=== PATIENT | female | born 1960 | race Caucasian/White ===

== ENCOUNTER 2020-09-20 13:20 | Outpatient (REF) | payer OTHER, SELFPAY | END 2020-09-20 13:21 | disposition home or self-care (01) | LOC: HO.LAB 13:20 | PROVIDERS: Visit Provider Internal Medicine | DX: Z20.828 Contact with and (suspected) exposure to other viral communicable diseases (principal) | CPT/HCPCS: C9803; U0003 ==

== ENCOUNTER → 2020-11-03 08:16 | Outpatient (BNVA) | payer OTHER, SELFPAY | PROVIDERS: PCP Internal Medicine; Visit Provider Dietitian, Registered ==

== ENCOUNTER 2020-11-22 08:55 | Outpatient (REF) | payer OTHER, SELFPAY ==
[2020-11-22 09:39] LABS: MANUAL DIFF FLAG NO
[2020-11-22 09:42] LABS: Basophils Percent Auto 0.2 % (0-2); Eosinophils Percent Auto 0.7 % (0-4); Hematocrit 40.7 % (37-47); Hemoglobin 13.6 g/dl (12.0-16.0); Imm Gran Abs Auto 0.02 X10*3/uL (0.00-0.03); Imm Gran Pct Auto 0.5 % (0.0-0.4); Lymphocytes Absolute Auto 1.2 X10*3/uL (1.2-4.9); Lymphocytes Percent Auto 27.5 % (20-40); Mean Corpuscular HGB Conc 33.4 g/dl (31.0-35.0); Mean Corpuscular Hemoglobin 29.2 pg (27.0-33.0); Mean Corpuscular Volume 87.5 fL (80-98); Mean Platelet Volume 8.9 fL (9.4-12.3); Monocytes Absolute Auto 0.3 X10*3/uL (0.1-1.2); Monocytes Percent Auto 7.7 % (2-11); Neutrophils Absolute Auto 2.8 X10*3/uL (2.0-8.3); Neutrophils Percent Auto 63.4 % (45-73); Platelet Count 216 X10*3/uL (160-400); Red Blood Count 4.65 X10*6/uL (4.20-5.50); White Blood Count 4.4 X10*3/uL (4.8-10.8)
[2020-11-22 10:05] LABS: Estimated Average Glucose 97 mg/dL
[2020-11-22 10:26] LABS: Alanine Aminotransferase 17 U/L (0-31); Albumin Level 4.1 g/dL (3.5-5.0); Alkaline Phosphatase 81 U/L (39-117); Anion Gap 11 (12-20); Aspartate Amino Transferase 20 U/L (5-31); Bilirubin Total 0.8 mg/dL (0.0-1.0); Blood Urea Nitrogen 18 mg/dL (9-16); C Reactive Protein 0.12 mg/dL (< or = 0.50); Calcium 9.2 mg/dL (8.4-10.2); Carbon Dioxide 29 mmol/L (22-29); Chloride 108 mmol/L (96-108); Cholesterol 215 mg/dL; Estimated Glomerular Filt Rate > 60; Glucose Random 85 mg/dL (60-115); HDL Cholesterol 69 mg/dL; LDL Cholesterol Calculated 127 mg/dl; Potassium 4.5 mmol/L (3.3-5.1); Sodium 143 mmol/L (135-145); Total Protein 6.5 g/dL (6.5-8.0); Triglycerides 98 mg/dL
[2020-11-22 10:47] LABS: Ferritin 144 ng/mL (10-250); TSH reflex Free T4 1.62 uIU/mL (0.32-4.0); Vitamin D 25-OH Total 73.4 ng/mL (>30)
[2020-11-22 10:52] LABS: Folate 17.5 ng/mL (> or = 4.0); Vitamin B12 1055 pg/mL (200-900)
[2020-11-24 02:16] LABS: Insulin Level Total 9.9 uIU/mL
[2020-11-24 10:36] LABS: Calcium (PTHI) 9.5 mg/dL (8.6-10.4); PTHI 28 pg/mL (14-64)
[2020-11-25 01:47] LABS: Zinc 96 mcg/dL (60-130)
[2020-11-26 11:57] LABS: Vitamin B1 19 nmol/L (8-30)
[2020-11-26 23:51] LABS: Vitamin A 51 mcg/dL (38-98)
== END 2020-11-22 08:56 | disposition home or self-care (01) ==
LOC: HO.LAB 08:55
PROVIDERS: PCP Internal Medicine; Visit Provider Physician Assistant
DX: Z98.84 Bariatric surgery status (principal)
CPT/HCPCS: 36415; 80053; 80061; 82306; 82607; 82728; 82746; 83036; 83525; 83970; 84425; 84443; 84590; 84630; 85025; 86140

== ENCOUNTER → 2020-11-29 08:07 | Outpatient (BNVA) | payer OTHER, SELFPAY | PROVIDERS: PCP Internal Medicine; Visit Provider Dietitian, Registered ==

== ENCOUNTER → 2022-12-25 16:10 | Outpatient (BNVA) | payer OTHER, SELFPAY | PROVIDERS: PCP Family Medicine; Visit Provider Physician Assistant Surgical | DX: Z13.89 Encounter for screening for other disorder (principal) ==

== ENCOUNTER 2023-01-02 15:13 | Outpatient (REF) | payer OTHER, SELFPAY ==
[2023-01-02 17:38] LABS: Blood Urea Nitrogen 20 mg/dL (9-16); Estimated Glomerular Filt Rate > 60
== END 2023-01-02 15:14 | disposition home or self-care (01) ==
LOC: HO.LAB 15:13
PROVIDERS: PCP Family Medicine; Visit Provider Physician Assistant
DX: Z01.812 Encounter for preprocedural laboratory examination (principal); K43.9 Ventral hernia without obstruction or gangrene
CPT/HCPCS: 36415; 82565; 84520

== ENCOUNTER 2023-01-05 08:50 | Outpatient (REF) | payer OTHER, SELFPAY ==
--- NOTE | ~2023-01-05 | CT_ITS ---
EXAMINATION: CT ABDOMEN AND PELVIS WITH CONTRAST CLINICAL INFORMATION: Ventral hernia COMPARISON: Previous abdominal ultrasound June 2019 TECHNIQUE: Multidetector volumetric images were obtained from the superior aspect of the liver through the pubic symphysis following administration 85 mL of Omnipaque 350 intravenous contrast. Sagittal and coronal reformatted images were obtained on the technologist's workstation. Oral contrast: Yes This CT examination was performed using dose optimization techniques as appropriate, variously including the following: *Automated exposure control *Adjustment of mA and/or kV according to patient size (this includes techniques or standardized protocols for targeted exams where dose is matched to indication/reason for exam; i.e. extremities or head) *Use of iterative reconstruction technique DLP: 514 mGy-cm FINDINGS: LUNG BASES: The visualized lung bases are unremarkable. LIVER, GALLBLADDER, AND BILIARY TREE: Fatty liver. The gallbladder has been removed. PANCREAS: Unremarkable. SPLEEN: Unremarkable. ADRENAL GLANDS: Unremarkable. KIDNEYS AND URETERS: The kidneys are normal in size, shape, and attenuation. No hydronephrosis, hydroureter, or calculi seen. No perinephric stranding. Small bilateral renal cysts. No imaging follow-up recommended. BLADDER: Unremarkable. GASTROINTESTINAL TRACT: Mild diverticulosis of the colon. The small and large bowel are unremarkable. The appendix is unremarkable. Postoperative changes from gastric procedure. A small esophageal hernia. ABDOMINAL WALL: Upper midline ventral hernia containing fat 5.5 cm above the umbilicus. This has a 3 cm centimeter neck and measures 7 x 4 x 7 cm. There is a small umbilical hernia containing fat. Small umbilical hernia containing fat. LYMPH NODES: Normal. VASCULAR: Unremarkable. PELVIC VISCERA: Unremarkable. OSSEOUS STRUCTURES: Degenerative changes of the spine. CT/CT abdomen pelvis w IV con IMPRESSION: Ventral hernia containing fat and small umbilical hernia containing fat. Fatty infiltration of the liver. Mild diverticulosis. Fleischner guidelines were followed.
[2023-01-05] MEDS: Barium Sulfate Oral (Mocha) 450 ML ORAL.SUSP 900 ML PO (11:08)
[2023-01-05] MEDS: iohexoL 350 MG/ML 100 ML INFUS..BTL IV (11:11)
== END 2023-01-05 08:51 | disposition home or self-care (01) ==
LOC: HO.CT 08:50
PROVIDERS: PCP Family Medicine; Visit Provider Physician Assistant Surgical
DX: K43.9 Ventral hernia without obstruction or gangrene (principal)
CPT/HCPCS: 74177; Q9967

== ENCOUNTER → 2023-01-22 14:20 | Outpatient (BNVA) | payer OTHER, SELFPAY | PROVIDERS: PCP Family Medicine; Visit Provider Surgery | DX: Z13.89 Encounter for screening for other disorder (principal) ==

== ENCOUNTER 2023-01-23 06:33 | Outpatient (REF) | payer OTHER, SELFPAY ==
--- NOTE | ~2023-01-23 | XR_ITS ---
EXAMINATION: XR CHEST CLINICAL INFORMATION: Obesity COMPARISON: Previous chest x-ray 2019 TECHNIQUE: 2 views of the chest were obtained. FINDINGS: No significant abnormality is noted involving the heart, lungs, mediastinum, bony thorax or soft tissues. Degenerative changes of the spine. XR/XR chest 2V IMPRESSION: Unremarkable examination.
[2023-01-23 06:45] LABS: MANUAL DIFF FLAG NO
[2023-01-23 07:34] LABS: Basophils Percent Auto 0.3 % (0-2); Eosinophils Absolute Auto 0.1 X10*3/uL (0.0-0.4); Eosinophils Percent Auto 1.5 % (0-4); Hematocrit 43.1 % (37.0-47.0); Hemoglobin 14.4 g/dl (12.0-16.0); Lymphocytes Absolute Auto 1.6 X10*3/uL (1.2-4.9); Lymphocytes Percent Auto 45.8 % (20-40); Mean Corpuscular HGB Conc 33.4 g/dl (31.0-35.0); Mean Corpuscular Hemoglobin 28.5 pg (27.0-33.0); Mean Corpuscular Volume 85.3 fL (80.0-98.0); Mean Platelet Volume 9.2 fL (9.4-12.3); Monocytes Absolute Auto 0.3 X10*3/uL (0.1-1.2); Neutrophils Absolute Auto 1.5 x10*3/uL (2.0-8.3); Neutrophils Percent Auto 43.4 % (45-73); Platelet Count 185 X10*3/uL (160-400); Red Blood Count 5.05 X10*6/uL (4.20-5.50); White Blood Count 3.4 X10*3/uL (4.8-10.8)
[2023-01-23 08:05] LABS: Alanine Aminotransferase 19 U/L (0-31); Albumin Level 4.1 g/dL (3.5-5.0); Alkaline Phosphatase 82 U/L (39-117); Anion Gap 9 (12-20); Aspartate Amino Transferase 22 U/L (5-31); Bilirubin Total 0.8 mg/dL (0.0-1.0); Blood Urea Nitrogen 12 mg/dL (9-16); Calcium 9.1 mg/dL (8.4-10.2); Carbon Dioxide 27 mmol/L (22-29); Chloride 111 mmol/L (96-108); Cholesterol 190 mg/dL; Estimated Glomerular Filt Rate > 60; Glucose Random 92 mg/dL (60-115); HDL Cholesterol 48 mg/dL; Iron 111 mcg/dL (30-160); LDL Cholesterol Calculated 113 mg/dl; Percent Iron Saturation 37 % (15-50); Potassium 4.2 mmol/L (3.3-5.1); Sodium 143 mmol/L (135-145); Total Iron Binding Capacity 299 mcg/dL (228-428); Total Protein 6.5 g/dL (6.5-8.0); Triglycerides 146 mg/dL; Unsaturated Iron Binding 188 ug/dL
[2023-01-23 08:19] LABS: Estimated Average Glucose 103 mg/dL; Hemoglobin A1c % 5.2 %
[2023-01-23 08:36] LABS: Ferritin 87 ng/mL (10-250); Folate 16.2 ng/mL (> or = 4.0); Insulin 18 uU/mL (2-29); TSH reflex Free T4 0.01 uIU/mL (0.32-4.0); Vitamin B12 809 pg/mL (200-900); Vitamin D 25-OH Total 89.7 ng/mL (>30)
[2023-01-23 09:57] LABS: Free T4 (Free Thyroxine) 1.18 ng/dL (0.71-1.85)
[2023-01-24 16:13] LABS: Calcium (PTHI) 9.3 mg/dL (8.6-10.4); PTHI 49 pg/mL (16-77)
[2023-01-27 01:03] LABS: Zinc 89 mcg/dL (60-130)
[2023-01-28 09:44] LABS: Vitamin B1 12 nmol/L (8-30)
[2023-01-29 17:38] LABS: Vitamin A 51 mcg/dL (38-98)
== END 2023-01-23 06:34 | disposition home or self-care (01) ==
LOC: HO.XRAY 06:33
PROVIDERS: PCP Family Medicine; Visit Provider Surgery
DX: E66.01 Morbid (severe) obesity due to excess calories (principal); E78.9 Disorder of lipoprotein metabolism, unspecified; G47.33 Obstructive sleep apnea (adult) (pediatric); E11.9 Type 2 diabetes mellitus without complications; K43.2 Incisional hernia without obstruction or gangrene; Z90.3 Acquired absence of stomach [part of]
CPT/HCPCS: 36415; 71046; 80053; 80061; 82306; 82607; 82728; 82746; 83036; 83525; 83540; 83970; 84134; 84425; 84439; 84443; 84590; 84630; 85025; 86140

== ENCOUNTER → 2023-02-05 15:16 | Outpatient (BNVA) | payer OTHER, SELFPAY | PROVIDERS: PCP Family Medicine; Visit Provider Surgery ==

== ENCOUNTER → 2023-02-27 15:20 | Outpatient (BNVA) | payer OTHER, SELFPAY | PROVIDERS: PCP Family Medicine; Referring Provider Family Medicine; Visit Provider Surgery ==

== ENCOUNTER 2023-03-22 09:42 | Outpatient (REF) | payer OTHER, SELFPAY ==
--- NOTE | ~2023-03-22 | FL_ITS ---
EXAMINATION: XR FLUOROSCOPY UPPER GI WITH AIR CLINICAL INFORMATION: Obesity, status post sleeve gastrectomy. Weight loss. COMPARISON: None available. TECHNIQUE: Routine upper GI air-contrast study was performed in upright and lying position. FINDINGS: Following oral administration of thick barium and effervescent granules there is normal propagation bolus from the oral cavity through the pharynx, esophagus into stomach without any obstruction, narrowing or stricture. On placing patient supine lying and prone there is gastric sleeve surgical changes with a small stomach. The course and caliber of duodenal bulb and sweep is normal. There is no gastroesophageal reflux. On the lateral view there is mid abdomen hiatal hernia with extension of rohan and soft tissue mesentery in the hernia but no bowel loops seen. There is evidence of previous cholecystectomy. FLUOROSCOPY TIME: 1.2 minutes. DOSE AREA PRODUCT: 21.56 uGy-m2 (microgray-meter squared). FL/FL upper GI w air IMPRESSION: 1. Status post gastric sleeve surgery. There is no upper GI abnormality. 2. There is a small abdominal wall hernia containing surgical rohan and mesenteric fat but no bowel loop seen within.
== END 2023-03-22 09:43 | disposition home or self-care (01) ==
LOC: HO.XRAY 09:42
PROVIDERS: PCP Family Medicine; Visit Provider Surgery
DX: E66.9 Obesity, unspecified (principal); E78.9 Disorder of lipoprotein metabolism, unspecified; Z90.3 Acquired absence of stomach [part of]
CPT/HCPCS: 74246

== ENCOUNTER 2023-04-02 08:59 | Outpatient (AMB) | payer OTHER, SELFPAY ==
--- NOTE | 2023-04-02 09:07 | MHC.OFFVIS ---
Intake Vital Signs 04/02/23 09:09 Height 5 ft 2.5 in Weight 167 lb 8.821 oz BMI 30.2 Pulse 72 Intake Visit Reasons: Follow up incisional hernia Intake Note: Patient is seen in office for follow up visit, following incisional hernia. Pt c/o: no changes since last visit Special Education Resource Room Teacher Required: No Domain Architect: Domain Architect offered & declined Accompanied by: Self / Same As Patient Allergies No Known Allergies [No Known Allergies*] Allergy (Verified 04/02/23 09:12) Medication List - Last Reconciled 04/02/23 by Javier Porter MD levothyroxine 112 mcg PO DAILY HPI HPI Comments History of Present Illness Details The patient is a 62-year-old woman with a distant history of type 2 diabetes, hiatal hernia, hypertension, obstructive sleep apnea who underwent a laparoscopic sleeve gastrectomy with hiatal hernia repair 09/18/2019. At that time, her comorbidities are as listed above and includes lipid disorder and GERD. Patient relates that previously she also had a laparoscopic cholecystectomy at [facility] and notes that earlier this year, she noted a bulge to the right of her upper abdomen above her umbilicus. She denies any signs or symptoms of obstruction, incarceration in denies any constipation symptoms. The patient is congratulated on her weight loss to 167 lb/BMI of 30.2 at today's visit. The pt notes 2 recent friend & family unexpected deaths and candidly states that while she has lost 11 lb, she is not concentrating on her own health due to the unexpected deaths and would prefer to try to lose another 10 lb before proceeding with surgery. She continues to deny any significant symptoms related to the hernia. The patient voiced disappointment since losing weight believing that she is ugly and notes that her facial wrinkles and redundant skin are more than she anticipated and she is overall disappointed. She states that she wonders if she did not regain weight to offset her perception. Patient notes that she had successful weight loss after sleeve gastrectomy to 158lbs but then regained weight and was evaluated in our bariatric program several weeks ago. At that time, she clinically felt like she had a hernia and was sent for a CT scan which confirmed an incisional hernia which even includes a laparoscopic cholecystectomy clips in the subcutaneous tissue. The hernia defect on CT measures 3.39 cm axial and 2.14cm in sagittal view based on my own measurements and the hernia contains only fat, no bowel. 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 [facility] Surgical History History of shoulder surgery Hx of meniscectomy of right knee Hx of thyroidectomy S/P laparoscopic sleeve gastrectomy Social History Alcohol intake: never Patient Tobacco Use Status: Never used Tobacco Review of Systems Const All systems reviewed & are unremarkable except as noted in HPI and below Reports as per HPI Physical Exam Vital Signs: Last Vital Signs Pulse 72 04/02/23 09:09 BMI result Body Mass Index 30.2 On exam, the patient is in good spirits She is nontoxic She is in no acute distress She is examined standing and there is minimal symptoms from the hernia. It reduces her no significant trophic skin changes nor evidence of cellulitis. Results Reviewed Results Reviewed: 01/05/23 CT results demonstrate an incisional hernia containing fat with a cholecystectomy clip in the subcutaneous tissue. Per my measurements, the axial fascial defect is 3.39 cm and the sagittal defect 2.14 cm. As noted, no bowel is present. Bariatric lab stated 01/23/2023 Hemoglobin 14.4 with normal indices; white blood cell count 3.4 with normal differential; platelet count 185 K BUN 12, creatinine 0.74; electrolytes within normal parameters Lipids, iron studies, liver function tests, electrolytes: All within normal parameters Pre-albumin 28; hemoglobin A1c 5.2 Vitamins are within normal parameters Assessment & Plan Assessment & Plan (1) Incisional hernia: Code(s): K43.2 - Incisional hernia without obstruction or gangrene (2) CHARIS (obstructive sleep apnea): Code(s): G47.33 - Obstructive sleep apnea (adult) (pediatric) (3) DMII (diabetes mellitus, type 2): Code(s): E11.9 - Type 2 diabetes mellitus without complications (4) Lipid disorder: Code(s): E78.9 - Disorder of lipoprotein metabolism, unspecified (5) Status post sleeve gastrectomy: Code(s): Z90.3 - Acquired absence of stomach [part of] (6) Obesity: Code(s): E66.9 - Obesity, unspecified Plan The patient is congratulated on her interval weight loss. The patient continues to endorse no symptoms of obstruction, incarceration or intractable pain. Given summer vacation activities, the patient has decided that she would like to try to put off surgery until June. The inherent risk of incarceration, strangulation, obstruction and need for emergent surgery was reviewed with the patient, but I think she is reliable and this is a reasonable option. We again reviewed the plan for a laparoscopic repair with mesh and primary closure of the fascial opening. The option of 2nd opinion or an open operation was discussed but declined. The importance of maintaining a stable, healthy weight and avoiding weight gain to decrease the risk of recurrence and complication was again reviewed and apparently understood. The possible issue of a seroma formation postoperatively that may even require drainage was discussed and apparently understood. Patient is requested follow-up in the end of May to, hopefully, schedule surgery. She will contact me before that date if she is having more symptomatic problems. I have ordered repeat nonfasting labs that can be done when we get closer to a surgical date since we are looking to June. Orders: Orders Comprehensive Met. Panel Today E11.9 - Type 2 diabetes mellitus without complications, E66.9 - Obesity, unspecified, E78.9 - Disorder of lipoprotein metabolism, unspecified, G47.33 - Obstructive sleep apnea (adult) (pediatric), K43.2 - Incisional hernia without obstruction or gangrene, Z90.3 - Acquired absence of stomach [part of] Hemoglobin A1c Today E11.9 - Type 2 diabetes mellitus without complications, E66.9 - Obesity, unspecified, E78.9 - Disorder of lipoprotein metabolism, unspecified, G47.33 - Obstructive sleep apnea (adult) (pediatric), K43.2 - Incisional hernia without obstruction or gangrene, Z90.3 - Acquired absence of stomach [part of] Prealbumin Today E11.9 - Type 2 diabetes mellitus without complications, E66.9 - Obesity, unspecified, E78.9 - Disorder of lipoprotein metabolism, unspecified, G47.33 - Obstructive sleep apnea (adult) (pediatric), K43.2 - Incisional hernia without obstruction or gangrene, Z90.3 - Acquired absence of stomach [part of] Complete Blood Count Auto Diff Today E11.9 - Type 2 diabetes mellitus without complications, E66.9 - Obesity, unspecified, E78.9 - Disorder of lipoprotein metabolism, unspecified, G47.33 - Obstructive sleep apnea (adult) (pediatric), K43.2 - Incisional hernia without obstruction or gangrene, Z90.3 - Acquired absence of stomach [part of] Coding Level of Care Code Est Pt Level 4 (80218) Diagnoses Incisional hernia K43.2 CHARIS (obstructive sleep apnea) G47.33 DMII (diabetes mellitus, type 2) E11.9 Lipid disorder E78.9 Status post sleeve gastrectomy Z90.3 Obesity E66.9
[2023-04-02 09:09] VITALS: PULSE 72; BMI 30.2
== END 2023-04-02 10:11 | disposition home or self-care (01) ==
PROVIDERS: PCP Family Medicine; Visit Provider Surgery
DX: K43.2 Incisional hernia without obstruction or gangrene (principal); G47.33 Obstructive sleep apnea (adult) (pediatric); E11.9 Type 2 diabetes mellitus without complications; E78.9 Disorder of lipoprotein metabolism, unspecified; Z90.3 Acquired absence of stomach [part of]; E66.9 Obesity, unspecified
CPT/HCPCS: 99214

== ENCOUNTER → 2023-04-02 08:59 | Outpatient (BNVA) | payer OTHER, SELFPAY | PROVIDERS: PCP Family Medicine; Visit Provider Surgery ==

== ENCOUNTER 2023-06-19 09:20 | Outpatient (AMB) | payer OTHER, SELFPAY ==
--- NOTE | 2023-06-19 09:21 | MHC.OFFVIS ---
Intake Vital Signs 06/19/23 09:24 Height 5 ft 3 in Weight 171 lb 8.314 oz BMI 30.4 Intake Visit Reasons: Follow up incisional hernia Worsted Winder Required: No Custodian Manager: Custodian Manager offered & declined Allergies No Known Allergies [No Known Allergies*] Allergy (Verified 06/19/23 09:25) Medication List - Last Reconciled 06/19/23 by Javier Porter MD levothyroxine 112 mcg PO DAILY HPI HPI Comments History of Present Illness Details The patient is a 62-year-old woman with a distant history of type 2 diabetes, hiatal hernia, hypertension, obstructive sleep apnea who underwent a laparoscopic sleeve gastrectomy with hiatal hernia repair 09/18/2019. At that time, her comorbidities are as listed above and includes lipid disorder and GERD. Patient relates that previously she also had a laparoscopic cholecystectomy at [facility] and notes that earlier this year, she noted a bulge to the right of her upper abdomen above her umbilicus. She denies any signs or symptoms of obstruction, incarceration in denies any constipation symptoms. The patient's weight is stable with a weight of 171 lb/BMI of 30.4 at today's visit. The pt notes 2 recent friend & family unexpected deaths over the summer but is ready to focus on her own health. She continues to deny any significant symptoms related to the hernia, but notes that she has been having difficulty with constipation. She is currently taking 2-3 [id number] docusate, unsuccessfully and reports her last bowel movement was 2-3 days ago. The patient voiced disappointment since losing weight believing that she is ugly and notes that her facial wrinkles and redundant skin are more than she anticipated and she is overall disappointed. She states that she wonders if she did not regain weight to offset her perception. Patient notes that she had laparoscopic cholecystectomy at an outside hospital, she clinically felt like she had a hernia and was sent for a CT scan which confirmed an incisional hernia which even includes a laparoscopic cholecystectomy clips in the subcutaneous tissue. The hernia defect on CT measures 3.39 cm axial and 2.14cm in sagittal view based on my own measurements and the hernia contains only fat, no bowel. 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 [facility] Medical History (Updated 06/19/23 @ 10:10 by Javier Porter MD) DMII (diabetes mellitus, type 2) Surgical History Hx laparoscopic cholecystectomy History of shoulder surgery Hx of meniscectomy of right knee Hx of thyroidectomy S/P laparoscopic sleeve gastrectomy Family History Sister Thyroid ca Social History Alcohol intake: never Patient Tobacco Use Status: Never used Tobacco Review of Systems Const All systems reviewed & are unremarkable except as noted in HPI and below Reports as per HPI Physical Exam On exam, the patient is in good spirits She is nontoxic She is in no acute distress She is examined standing and there is minimal symptoms from the hernia. It reduces her no significant trophic skin changes nor evidence of cellulitis. Results Reviewed Results Reviewed: 01/05/23 CT results demonstrate an incisional hernia containing fat with a cholecystectomy clip in the subcutaneous tissue. Per my measurements, the axial fascial defect is 3.39 cm and the sagittal defect 2.14 cm. As noted, no bowel is present. Bariatric lab stated 01/23/2023 Hemoglobin 14.4 with normal indices; white blood cell count 3.4 with normal differential; platelet count 185 K BUN 12, creatinine 0.74; electrolytes within normal parameters Lipids, iron studies, liver function tests, electrolytes: All within normal parameters Pre-albumin 28; hemoglobin A1c 5.2 Vitamins are within normal parameters Nonfasting labs were ordered today and the patient will complete them prior to surgery. Assessment & Plan Assessment & Plan (1) Incisional hernia: Code(s): K43.2 - Incisional hernia without obstruction or gangrene (2) Status post sleeve gastrectomy: Code(s): Z90.3 - Acquired absence of stomach [part of] (3) CHARIS (obstructive sleep apnea): Code(s): G47.33 - Obstructive sleep apnea (adult) (pediatric) (4) Lipid disorder: Code(s): E78.9 - Disorder of lipoprotein metabolism, unspecified (5) Obesity: Code(s): E66.9 - Obesity, unspecified (6) Constipation: Code(s): K59.00 - Constipation, unspecified Plan The patient is not currently working and would like to have surgery as quickly as possible now that she can focus on her own health. The option of continued observation was discussed but declined. I reviewed options including open or laparoscopic hernia repair with or without mesh. Since this represents a ventral incisional hernia, I recommended a laparoscopic repair with primary closure of the fascia and intraperitoneal mesh. The inherent risks of bleeding, infection, mesh complications that could require another procedure/operation, risks of bowel injury, DVT, PE, ileus and seroma that could require drainage were all discussed and apparently understood. Patient seemed understand and would like to proceed. Patient was also given a handout on avoiding/managing chronic constipation is instructed to use an OTC Na Phos enema (she has had to previously) which should be administered in left lateral decubitus position, slowly. A bowel regime with either MiraLax, docusate, 3 tablets in the morning and 3 tablets in the evening or every other day milk of magnesia was discussed with the patient. She will likely per purchase generic MiraLax and start this today, but will contact me if she needs guidance. Patient will void her urinary bladder eight section blower to surgery, have SCDs in place and received Ancef, 2 g IV eight section blower to surgery. She will make arrangements regarding transportation. Activity restrictions postoperatively and pain management were reviewed and apparently understood. Coding Level of Care Code Est Pt Level 4 (56839) Diagnoses Incisional hernia K43.2 Status post sleeve gastrectomy Z90.3 CHARIS (obstructive sleep apnea) G47.33 Lipid disorder E78.9 Obesity E66.9 Constipation K59.00
[2023-06-19 09:24] VITALS: BMI 30.4
== END 2023-06-19 10:06 | disposition home or self-care (01) ==
PROVIDERS: PCP Family Medicine; Visit Provider Surgery
DX: K43.2 Incisional hernia without obstruction or gangrene (principal); Z90.3 Acquired absence of stomach [part of]; G47.33 Obstructive sleep apnea (adult) (pediatric); E78.9 Disorder of lipoprotein metabolism, unspecified; E66.9 Obesity, unspecified; K59.00 Constipation, unspecified
CPT/HCPCS: 99214

== ENCOUNTER 2023-06-19 09:20 | Outpatient (REF) | payer OTHER, SELFPAY ==
[2023-06-19 10:25] LABS: MANUAL DIFF FLAG NO
[2023-06-19 10:33] LABS: Basophils Percent Auto 0.3 % (0-2); Hematocrit 40.5 % (37.0-47.0); Hemoglobin 13.6 g/dl (12.0-16.0); Imm Gran Abs Auto 0.01 X10*3/uL (0.00-0.03); Imm Gran Pct Auto 0.3 % (0.0-0.4); Lymphocytes Absolute Auto 1.2 X10*3/uL (1.2-4.9); Lymphocytes Percent Auto 32.1 % (20-40); Mean Corpuscular HGB Conc 33.6 g/dl (31.0-35.0); Mean Corpuscular Hemoglobin 28.7 pg (27.0-33.0); Mean Corpuscular Volume 85.4 fL (80.0-98.0); Mean Platelet Volume 8.8 fL (9.4-12.3); Monocytes Absolute Auto 0.4 X10*3/uL (0.1-1.2); Monocytes Percent Auto 9.7 % (2-11); Neutrophils Absolute Auto 2.2 x10*3/uL (2.0-8.3); Neutrophils Percent Auto 56.6 % (45-73); Platelet Count 175 X10*3/uL (160-400); Red Blood Count 4.74 X10*6/uL (4.20-5.50); White Blood Count 3.8 X10*3/uL (4.8-10.8)
[2023-06-19 10:53] LABS: Estimated Average Glucose 100 mg/dL; Hemoglobin A1c % 5.1 % (<6.0)
[2023-06-19 11:06] LABS: Alanine Aminotransferase 15 U/L (0-31); Albumin Level 4.1 g/dL (3.5-5.0); Alkaline Phosphatase 84 U/L (39-117); Anion Gap 14 (12-20); Aspartate Amino Transferase 21 U/L (5-31); Bilirubin Total 0.5 mg/dL (0.0-1.0); Blood Urea Nitrogen 13 mg/dL (9-16); Calcium 9.6 mg/dL (8.4-10.2); Carbon Dioxide 25 mmol/L (22-29); Chloride 109 mmol/L (96-108); Estimated Glomerular Filt Rate > 60; Glucose Random 81 mg/dL (60-115); Potassium 4.2 mmol/L (3.3-5.1); Sodium 144 mmol/L (135-145); Total Protein 6.9 g/dL (6.5-8.0)
== END 2023-06-19 09:21 | disposition home or self-care (01) ==
LOC: HO.LAB 09:20
PROVIDERS: PCP Family Medicine; Visit Provider Surgery
DX: K43.2 Incisional hernia without obstruction or gangrene (principal); K59.00 Constipation, unspecified; E11.9 Type 2 diabetes mellitus without complications; E66.9 Obesity, unspecified; E78.9 Disorder of lipoprotein metabolism, unspecified; G47.33 Obstructive sleep apnea (adult) (pediatric); Z90.3 Acquired absence of stomach [part of]
CPT/HCPCS: 36415; 80053; 83036; 84134; 85025

== ENCOUNTER 2023-06-28 06:01 | Day surgery (SDC) | payer OTHER, SELFPAY ==
[2023-06-26 07:58] VITALS: BMI 30.3
--- NOTE | 2023-06-27 13:50 | MHC.SHP ---
Pre-Procedural Eval Section A Date of Service: 06/27/23 The patient is an INPATIENT: No The History & Physical has been completed within 30 days and I have reviewed it.: Yes Section B Chief Complaint: Incisional hernia without obstruction or gangrene Allergies: Allergies Allergy/AdvReac Type Severity Reaction Status Date / Time No Known Allergies Allergy Verified 06/19/23 09:25 [No Known Allergies*] Plan I have reviewed the history and physical and performed a pertinent physical examination on my patient. No changes have occurred unless specified. Time Spent With Patient Time: Total time managing care of this patient today ____ minutes.
[2023-06-28] VITALS (8 sets, daily range): BP systolic 122–192; BP diastolic 58–77; PULSE 50–81; RESP 14–18; TEMP 36.1–36.9; O2SAT 97–100
[2023-06-28] MEDS: Lactated Ringers 1,000 ML 100 ML IVCONT (06:39)
--- NOTE | 2023-06-28 07:26 | HO.ANESPROP2 ---
HPI - Anesthesia Eval Consult details Narrative: for repair incis hernia PMFSH Active Problems Active Problems: All Active Problems (Updated 06/19/23 @ 10:10 by Javier Porter MD) Constipation (Acute) CHARIS (obstructive sleep apnea) (Acute) Lipid disorder (Acute) Incisional hernia (Acute) Pre-procedure lab exam (Acute) Abdominal wall hernia (Acute) Status post sleeve gastrectomy (Acute) Obesity (Acute) Past Medical History Medical History (Updated 06/19/23 @ 10:10 by Javier Porter MD) DMII (diabetes mellitus, type 2) Family History Family History Sister Thyroid ca Family history of problems with anesthesia: No Surgical History Surgical History Hx laparoscopic cholecystectomy History of shoulder surgery Hx of meniscectomy of right knee Hx of thyroidectomy S/P laparoscopic sleeve gastrectomy History of Problems with Anesthesia: No Social History Social History Alcohol intake: never Patient Tobacco Use Status: Never used Tobacco Use of substances other than those prescribed or required for medical reasons: No Are you DNR?: No Advance Directives: No Advance Directives Information Provided: Yes Meds Allergies Allergy/AdvReac Type Severity Reaction Status Date / Time No Known Allergies Allergy Verified 06/19/23 09:25 [No Known Allergies*] Active Medications: Current Medications Lactated Ringer's (Lr) 1,000 mls @ 100 mls/hr IVCONT .Q10H LAUREEN Last Admin: 06/28/23 06:39 Dose: 100 mls/hr Home Medications Medication Instructions Recorded Confirmed Last Taken Type levothyroxine 112 mcg capsule 112 mcg PO BEDTIME 12/25/22 06/28/23 Unknown History Exam Exam Date and Time: June 28, 2023 0726 Height,Weight and Vital Signs: Height 5 ft 3 in Weight 77.564 kg Last Vital Signs Temp 98.5 F 06/28/23 06:20 Pulse 64 06/28/23 06:20 Resp 16 06/28/23 06:20 BP 122/71 06/28/23 06:20 Pulse Ox 98 06/28/23 06:20 O2 Del Method Room Air 06/28/23 06:20 Airway Mallampati Class: I TM Dist: >3cm Neck ROM: Full Loose/Missing/Broken Teeth: No Heart: ok Lungs: ok Assessment and Plan Assessment Anesthesia Assessment: Anesthesia Plan Discussed and Chart Reviewed Final Anesthetic Review Family History of Problems with Anesthesia: No History of Problems with Anesthesia: No NPO: Yes ASA Class: III Final Preanesthetic Review: No Changes in Pt Med Stat, Meds/Allgs Chart Reviewed, Consent Obtained/Reviewed and Anes Risks/Benef Reviewed Patient Risk: Intermediate Procedure Risk: Intermediate Anesthetic Plan Anesthetic Plan: GA and Agree w/ Assess. and Plan Disposition: Standard PACU
--- NOTE | 2023-06-28 07:27 | W.PM.OPN ---
Operative Note Operative Note Date of Service: 06/28/23 Narrative: Preop diagnosis: [Incisional hernia, reducible, ventral abdomen (axial fascial defect is 3.39 cm and the sagital defect 2.14 cm)] Postop diagnosis: [same] Procedure: [Laparoscopic IPOM-plus with Ventralite [id number] mesh] Surgeon: Javier Porter MD Assist: [Bee Goldsmith, RN] Anesthesia: [GET, local: ropivicaine, 0.5% plain ] Estimated blood loss: [3cc] Specimen: [none] Intraoperative findings: [ Viable omentum was reduced from the incisional hernia that was above the umbilicus. It is likely secondary to the patient's laparoscopic cholecystectomy since CT demonstrated surgical clips present in the subcu, these could not be identified intraoperatively.] Indications: [The patient is a 62-year-old woman who is status post laparoscopic sleeve gastrectomy with hiatal hernia repair 09/18/2019 with the comorbidities of obstructive sleep apnea, type 2 diabetes and hypertension. She did will postoperatively and has had a stable weight and developed gallbladder disease undergoing laparoscopic cholecystectomy at [facility]. Postoperatively, she developed a reducible ventral incisional hernia above her umbilicus containing omental fat and no bowel measuring 3.39cm x 2.14cm. She had originally intended to have surgery earlier this year, but due to 2 unexpected deaths, she postponed. Options including open repair, 2nd opinion and continued observation were discussed. The inherent risks of the procedure including, but are not limited to: Bleeding, infection, need to convert to open surgery, bowel injury, DVT/PE and hernia recurrence, especially in the setting of weight regain were reviewed. The risk of postoperative seroma that could require drainage was discussed. Postoperative activity restrictions and diet were reviewed. Patient's hemoglobin A1c was under 7. The patient seemed understand her options, had her questions answered and wanted to proceed. Procedure: [Identified in the preoperative holding area and again in operating suite 6. The patient was identified in the preoperative holding area by myself and the operative site marked by me confirming a reducible incisional/ventral hernia. 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 The left arm was tucked. See anesthesia notes for full details regarding anesthesia care and management. The patient was then widely prepped and draped in the usual manner using chlorhexidine. An appropriate time-out was performed. The patient's abdomen was accessed through a stab incision in the left upper quad using preemptive local. Veress needle was placed without incident, an appropriate drop test performed and used to obtain a pneumoperitoneum of 15 mmHg using carbon dioxide. Opening pressure was 7 mmHg. The abdomen was then accessed with a 5 mm/30 degree laparoscopic for a 5 mm optical trocar without incident through the anterior axillary line at the level of the umbilicus. I then inspected for evidence of injury from either the Veress needle or trocar and found none. The patient was positioned in gentle Trendelenburg position and 2 additional 5 mm trocars placed using preemptive local under direct laparoscopic vision in the patient's left lower quadrant and a 12 mm placed in the left upper quadrant. Laparoscopy confirmed a ventral incisional hernia containing viable omentum which was reduced using careful blunt dissection and sharp dissection to remove it from the sac. Hemostasis was obtained with electrocautery. Once the sac was reduced, the fascial defect was closed using an absorbable 0 V-Lock suture in running laparaoscopic manner. Next, 4x6 inch Ventralite Echo mesh was carfeully inserted through the 12 mm trocar and deployed. A stab incision was made through the abdominal wall skin over the hernia, a suture passer used to grasp the blue inflation tube which was then delivered, cut and inflated. The mesh was oriented with overlap and absorbable tacks used to secure the mesh. The abdomen was then deflated to 9 mmHg, the bed return to neutral and trocars removed. The 12 mm fascia was closed 0 Polysorb suture and skin was closed with 4-0 Monocryl subcuticular sutures. The abdomen was then washed and dried, and Mastisol and Steri-Strips applied followed by Band-Aids. Patient tolerated the procedure well was sent to the recovery area in stable condition. All sponge and instrument counts were correct x2. At the patient's request, I contact her mother Rox at [phone]; there was no answer, so a message was left. ]
== END 2023-06-28 11:10 | disposition home or self-care (01) ==
LOC: HO.SSS 06:01
PROVIDERS: PCP Family Medicine; Visit Provider Surgery
PROC: 0WQF4ZZ Repair Abdominal Wall, Percutaneous Endoscopic Approach (ICD-10-PCS; CPT 49593; principal; 2023-06-28 07:30)
DX: K43.2 Incisional hernia without obstruction or gangrene (principal); K44.9 Diaphragmatic hernia without obstruction or gangrene; I10 Essential (primary) hypertension; G47.33 Obstructive sleep apnea (adult) (pediatric); E11.9 Type 2 diabetes mellitus without complications; E78.9 Disorder of lipoprotein metabolism, unspecified; E66.9 Obesity, unspecified; K59.00 Constipation, unspecified; Z90.49 Acquired absence of other specified parts of digestive tract; Z98.84 Bariatric surgery status; Z90.3 Acquired absence of stomach [part of]; Z79.899 Other long term (current) drug therapy
CPT/HCPCS: 49593; C1713; C1781; J0131; J0690; J1170; J1885; J2405; J2795; J3010

== ENCOUNTER → 2023-06-28 06:01 | Outpatient (BNV) | payer OTHER, SELFPAY | PROVIDERS: PCP Family Medicine; Visit Provider Surgery | DX: K43.2 Incisional hernia without obstruction or gangrene (principal) | CPT/HCPCS: 49593 ==

== ENCOUNTER 2023-07-05 11:17 | Outpatient (AMB) | payer OTHER, SELFPAY ==
--- NOTE | 2023-07-05 11:32 | A.OFFVIS_ITS ---
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 Porter, 06/28/2023. Feels sore and tried to drive but had difficulty moving around. But overall is starting to feel better. Finished taking oxycodone. Can walk without difficulty. No N/V, no fevers. Moving her bowels without difficulty. No fevers. PFSH Medical History (Updated 06/19/23 @ 10:10 by Javier Porter MD) DMII (diabetes mellitus, type 2) Surgical History (Updated 07/05/23 @ 11:56 by KWESI Rueda) Hx of hernia repair Hx laparoscopic cholecystectomy History of shoulder surgery Hx of meniscectomy of right knee Hx of thyroidectomy S/P laparoscopic sleeve gastrectomy Family History Sister Thyroid ca Social History Alcohol intake: never Patient Tobacco Use Status: Never used Tobacco Physical Exam Const General: cooperative, comfortable and no acute distress Orientation/consciousness: patient oriented x3 GI Other: soft, appropriately tender around lap incisions, nondistended, fullness at area of old hernia- nontender, no overlying skin changes; yellowed ecchymosis around left incision sites, incisions with steri-strips c/d/i Neuro General: patient oriented x3 Assessment & Plan Assessment & Plan (1) Hx of hernia repair: Comment: 06/28/[address] Porter Code(s): Z98.890 - Other specified postprocedural states; Z87.19 - Personal history of other diseases of the digestive system (2) Incisional hernia: Code(s): K43.2 - Incisional hernia without obstruction or gangrene (3) Status post sleeve gastrectomy: Code(s): Z90.3 - Acquired absence of stomach [part of] (4) Obesity: Code(s): E66.9 - Obesity, unspecified Plan Doing well after lap VHR, no surgical complications, recovering as expected. Can take Tylenol, and may use ibuprofen; recommended taking with food or milk/shake and not on empty stomach, and adding PPI to med regimen while taking. Reviewed no heavy lifting, may walk for exercise. May shower and pat dry with steri- strips in place. Offered a binder for comfort but pt declined. RTC 2 weeks for previously scheduled appt with Dr. Porter. Coding Level of Care Code Est Pt Level 4 (58201) Diagnoses Hx of hernia repair Z98.890; Z87.19 Incisional hernia K43.2 Status post sleeve gastrectomy Z90.3 Obesity E66.9
[2023-07-05 11:35] VITALS: BP 139/73; PULSE 86; TEMP 35.6; BMI 30.4
== END 2023-07-05 11:56 | disposition home or self-care (01) ==
PROVIDERS: PCP Family Medicine; Visit Provider Physician Assistant Surgical
DX: E66.9 Obesity, unspecified (principal); Z68.30 Body mass index [BMI] 30.0-30.9, adult; Z90.3 Acquired absence of stomach [part of]; Z98.84 Bariatric surgery status; K43.2 Incisional hernia without obstruction or gangrene; Z87.19 Personal history of other diseases of the digestive system
CPT/HCPCS: 99214

== ENCOUNTER → 2023-07-05 11:17 | Outpatient (BNVA) | payer OTHER, SELFPAY | PROVIDERS: PCP Family Medicine; Visit Provider Physician Assistant Surgical ==

== ENCOUNTER 2023-07-20 10:09 | Outpatient (AMB) | payer OTHER, SELFPAY ==
[2023-07-20 10:11] VITALS: BP 123/59; PULSE 70; TEMP 36.3; O2SAT 98; BMI 31.0
--- NOTE | 2023-07-20 10:11 | MHC.OFFVIS ---
Intake Vital Signs 07/20/23 10:11 Height 5 ft 2.5 in Weight 172 lb 6.424 oz BMI 31.0 BP 123/59 L Blood Pressure Location Rt brachial Position Sitting Pulse 70 Pulse Source Pulse Oximeter Temp 97.3 F Temp Source Tympanic Pulse Oximetry (%) 98 Oxygen Delivery Method Room Air Intake Visit Reasons: post op 06/28/23 ventral hernia Allergies No Known Allergies [No Known Allergies*] Allergy (Verified 07/20/23 10:11) HPI HPI Comments History of Present Illness Details The patient returns for outpatient follow-up after laparoscopic incisional hernia repair with IPOM-plus using a 4 x 6 in Ventralight mesh. The patient reports that she is doing well, tolerating her diet and is in between jobs at this time so she declined a work note. She is having no fevers or other significant complaints at this time and is pleased with the results of surgery. [facility] Medical History (Updated 06/19/23 @ 10:10 by Javier Porter MD) DMII (diabetes mellitus, type 2) Surgical History (Updated 07/05/23 @ 11:56 by KWESI Rueda) Hx of hernia repair Hx laparoscopic cholecystectomy History of shoulder surgery Hx of meniscectomy of right knee Hx of thyroidectomy S/P laparoscopic sleeve gastrectomy Family History Sister Thyroid ca Social History Alcohol intake: never Patient Tobacco Use Status: Never used Tobacco Review of Systems Const All systems reviewed & are unremarkable except as noted in HPI and below Physical Exam On exam, she is nontoxic and in good spirits Sclera anicteric She is in no acute respiratory distress Her abdominal incisions are well healed. There is some thickening in the marylou hernia tissue but no discrete seroma, no erythema in the remaining Steri-Strips were removed. She has no tenderness and no evidence of recurrence. She does have redundant abdominal skin which may confound her exam. Assessment & Plan Assessment & Plan (1) Hx of hernia repair: Comment: 06/28/[address] Porter Code(s): Z98.890 - Other specified postprocedural states; Z87.19 - Personal history of other diseases of the digestive system (2) CHARIS (obstructive sleep apnea): Code(s): G47.33 - Obstructive sleep apnea (adult) (pediatric) (3) Status post sleeve gastrectomy: Code(s): Z90.3 - Acquired absence of stomach [part of] Plan The patient is doing very well. She notes that she is also pleased regarding the outcome. Activity restrictions were discussed. The importance of follow-up in the bariatric program in 4 months with Becca was reviewed. The patient will reach out to me if she has any questions or problems and will follow-up with me regarding the hernia repair on a p.r.n. basis. Coding Level of Care Code Global (20912) Diagnoses Hx of hernia repair Z98.890; Z87.19 CHARIS (obstructive sleep apnea) G47.33 Status post sleeve gastrectomy Z90.3
== END 2023-07-20 10:47 | disposition home or self-care (01) ==
PROVIDERS: PCP Family Medicine; Visit Provider Surgery
DX: Z09 Encounter for follow-up examination after completed treatment for conditions other than malignant neoplasm (principal); Z87.19 Personal history of other diseases of the digestive system
CPT/HCPCS: 99212

== ENCOUNTER → 2023-07-20 10:09 | Outpatient (BNVA) | payer OTHER, SELFPAY | PROVIDERS: PCP Family Medicine; Visit Provider Surgery ==

== ENCOUNTER 2023-11-23 13:16 | Outpatient (AMB) | payer OTHER, SELFPAY ==
--- NOTE | 2023-11-23 13:28 | A.OFFVIS_ITS ---
Intake Vital Signs 11/23/23 13:31 Height 5 ft 2.5 in Weight 172 lb BMI 31.0 BP 129/64 Blood Pressure Location Lt brachial Position Sitting Pulse 87 Intake Visit Reasons: Colonscopy Screening Intake Note: Patient new consult for 2nd pre colonoscopy screening. Patient denies any GI issues. 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 female with past medical hi story of abdominal wall hernia, hypothyroidism, hyperlipidemia, CHARIS, status post sleeve gastrectomy is here today for pre colonoscopy screening.? Patient was sent to us by her PCP.? Last colonoscopy 12 years ago no polyps found. History of gastric sleeve in 2018. Abdominal wall hernia repair in June of 2023.? Patient was diagnosed with thyroid cancer will have a iodine radiation treatment soon. Patient denies any gastrointestinal symptoms in the past or at present.? Maternal grandmother was diagnosed with colorectal cancer. Patient states that her mom had multiple colonoscopies and they were all normal.? Denies history of difficulty with sedation or anesthesia in the past.? Patient was diagnosed with sleep apnea before weight loss surgery. Currently patient states that she is doing well.? Denies any history of cardiac, renal, pulmonary, or hepatic disease.?? No history of infectious? diseases like hepatitis A, B, C, HIV or tuberculosis.? Patient is not on any anticoagulation therapy. [facility] Medical History (Updated 06/19/23 @ 10:10 by Javier Porter MD, FACS, [facility]) DMII (diabetes mellitus, type 2) Surgical History Hx of hernia repair Hx laparoscopic cholecystectomy History of shoulder surgery Hx of meniscectomy of right knee Hx of thyroidectomy S/P laparoscopic sleeve gastrectomy Family History Sister Thyroid ca Social History Alcohol intake: never Patient Tobacco Use Status: Never used Tobacco Review of Systems Const Denies weight gain and Denies weight loss ENT Reports no additional complaints, Denies dysphagia and Denies odynophagia Card Reports no additional complaints Resp Reports no additional complaints GI Denies abdominal pain, Denies belching, Denies melena, Denies bloating, Denies change in bowel habits, Denies dysphagia, Denies excessive flatus, Denies dyspepsia, Denies heartburn, Denies diarrhea, Denies loose stools, Denies nausea, Denies odynophagia and Denies vomiting Musc Reports no additional complaints Neuro Reports no additional complaints Psych Reports no additional complaints Endo Reports no additional complaints Physical Exam Vital Signs: Last Vital Signs Pulse 87 11/23/23 13:31 BP 129/64 11/23/23 13:31 BMI result Body Mass Index 31.0 Const General: healthy appearing, no acute distress and well developed Nutritional Appearance: obese Orientation/consciousness: patient oriented x3 Resp Effort & Inspection: normal respiratory effort, able to speak in complete sentences, no tracheal deviation and symmetric chest movement Auscultation: clear to auscultation bilaterally Cardio Rate: regular rate GI Inspection: Yes normal to inspection, No distended and Yes obesity Palpation (GI): Soft to palpation, not firm, nontender and No hepatosplenomegaly present Auscultation: normal bowel sounds General: Yes no CVA tenderness Back/Spine/Pelvis Back: no CVA tenderness Skin General skin exam: elasticity normal, turgor normal and dry skin Neuro General: patient oriented x3 Psych Appearance: grossly normal Mental Status: mental status grossly normal Assessment & Plan Assessment & Plan (1) Screen for colon cancer: Code(s): Z12.11 - Encounter for screening for malignant neoplasm of colon Plan Patient denies any GI, cardiac or respiratory symptoms.? Denies any issues with anesthesia in the past.? Denies any history of sleep apnea.? No history infectious diseases in the past or present.? Not on any anticoagulation therapy.? No family or personal history of colon cancer or polyps.? Patient denies melena, hematochezia, unintentional weight loss or ribbon like stools.? Discussed at length the pre-procedure,? prep, diet & medications as well as what to expect prior, during and after the procedure.?? Stressed the importance of good bowel prep. ?Recommended the use of Vaseline or Calmoseptine OTC & baby wipes with bowel movements to promote comfort.? ?Patient verbalizes understanding and agrees to plan of care.? She was given the opportunity to ask questions and all questions answered.? We will see her after the procedure.? Medications: New bisacodyl (Dulcolax (bisacodyl)) take 4 tabs at noon the day before your colonoscopy 20 mg (4 x 5 mg) PO ONCE 1 day 4 tabs 0RF Z12.11 - Encounter for screening for malignant neoplasm of colon polyethylene glycol 3350 (Miralax) As directed by gastroenterology department at [facility] 238 grams PO ONCE 238 grams 0RF Z12.11 - Encounter for screening for malignant neoplasm of colon Coding Level of Care Code New Pt Level 3 (48685) Diagnoses Screen for colon cancer Z12.11 Time Spent (min) 40 Comment 30 minutes spent with patient and additional 10 minutes spent reviewing her records
[2023-11-23 13:31] VITALS: BP 129/64; PULSE 87; BMI 31.0
== END 2023-11-23 14:02 | disposition home or self-care (01) ==
PROVIDERS: PCP Family Medicine; Visit Provider Nurse Practitioner Family
DX: Z01.818 Encounter for other preprocedural examination (principal); Z12.11 Encounter for screening for malignant neoplasm of colon
CPT/HCPCS: S0285

== ENCOUNTER → 2023-11-23 13:16 | Outpatient (BNVA) | payer OTHER, SELFPAY | PROVIDERS: PCP Family Medicine; Visit Provider Nurse Practitioner Family ==

== ENCOUNTER 2024-05-28 10:33 | Day surgery (SDC) | payer OTHER, SELFPAY ==
--- NOTE | 2024-05-27 13:21 | HO.ANESPROP2 ---
HPI - Anesthesia Eval Consult details Narrative: 63yo F for Colonoscopy PMFSH Active Problems Active Problems: All Active Problems Hx of hernia repair (Acute) Constipation (Acute) CHARIS (obstructive sleep apnea) (Acute) Lipid disorder (Acute) Incisional hernia (Acute) Pre-procedure lab exam (Acute) Abdominal wall hernia (Acute) Status post sleeve gastrectomy (Acute) Obesity (Acute) Past Medical History Medical History (Updated 06/19/23 @ 10:10 by Javier Porter MD, FACS, [facility]) DMII (diabetes mellitus, type 2) Family History Family History Sister Thyroid ca Family history of problems with anesthesia: No Surgical History Surgical History Hx of hernia repair Hx laparoscopic cholecystectomy History of shoulder surgery Hx of meniscectomy of right knee Hx of thyroidectomy S/P laparoscopic sleeve gastrectomy History of Problems with Anesthesia: No Social History Social History Alcohol intake: never Patient Tobacco Use Status: Never used Tobacco Meds Allergies Allergy/AdvReac Type Severity Reaction Status Date / Time No Known Allergies Allergy Verified 11/23/23 13:28 [No Known Allergies*] Home Medications ?Medication ?Instructions ?Recorded ?Confirmed ?Last Taken ?Type levothyroxine 112 mcg capsule 112 mcg PO BEDTIME 12/25/22 07/05/23 Unknown History Assessment and Plan Assessment Anesthesia Assessment: Chart Reviewed Final Anesthetic Review Family History of Problems with Anesthesia: No History of Problems with Anesthesia: No
[2024-05-28 10:45] VITALS: BP 132/91; PULSE 71; RESP 16; TEMP 37; O2SAT 96; BMI 31.8
[2024-05-28] MEDS: Lactated Ringers 1,000 ML 100 ML IVCONT (11:08)
--- NOTE | 2024-05-28 11:35 | MHC.SHP ---
Pre-Procedural Eval Section A - 24 Hr Update-Section A only Date of Service: 05/28/24 Section B - Complete if H&P > 30 days Chief Complaint: Encounter for screening for malignant neoplasm of Details of Present Illness: abdominal wall hernia repair 2022, hypothyroidism, hyperlipidemia, CHARIS, status post sleeve gastrectomy 2018 No hx of difficulty with anesthesia. reports last colo was with mod sed. Present Medications: see Short Stay Collaborative assessment Allergies: Allergies Allergy/AdvReac Type Severity Reaction Status Date / Time No Known Allergies Allergy Verified 11/23/23 13:28 [No Known Allergies*] Review of Systems Review of Systems Comment: Ten point ROS negative Exam Exam Comment: Gen appear: No acute distress HEENT: no icterus Chest: No overt resp distress Abd: soft, nontender, nondistended Psych: Stable affect, answering questions appropriately Neuro: A/Ox3 noted to move all extremities spontaneously Ext: no peripheral edema Plan Diagnosis/Plan: Unchanged I have reviewed the history and physical and performed a pertinent physical examination on my patient. No changes have occurred unless specified. Time Spent With Patient Time: Total time managing care of this patient today ____ minutes.
--- NOTE | 2024-05-28 12:35 | P.OPN-COLO_ITS ---
Colonoscopy Operative Note Operative Note Date of Service: 05/28/24 Narrative: Procedure: Colonoscopy Indication: Screening Endoscopist: Jannet Lagunas MD Anesthesia Provider: Jannet Lagunas MD Anesthesia type: Moderate Sedation. Midazolam 4mg and fentanyl 100mcg. My total sedation time was 18 minutes. Instrument: Olympus [id number] Consent: Indication, risks vs benefits, and alternatives were discussed with the patient who gave written informed consent to proceed. EKG, pulse, pulse oximetry and blood pressure were monitored throughout the procedure. Please see anesthesia flowsheet. Procedure: The patient was brought to the procedure room and placed in the left lateral decubitus position. IV medications were administered by the RN in attendance. A digital rectal exam was performed which was normal. A distal attachment cap was affixed to the tip of the colonoscope which was then inserted through the anus and advanced through the colon to the cecum at 75 cm,and terminal ileum. Appendiceal orifice and ileocecal valve were identified. Mucosa was carefully examined under high definition white light as the instrument was slowly withdrawn in a retrograde panoramic fashion. Retroflexion was performed in rectum. The procedure was not difficult. There were no immediate obvious complications. The quality of the prep was BBPS: 3+2+3 = adequate Withdrawal time 7 minutes. Limitations: No limitations. Findings: Mucosa: Normal to cecum and terminal ileum. Protruding lesions: * Large internal hemorrhoids without stigmata of recent bleeding. Excavated lesions: * Moderate diverticulosis of sigmoid colon. Impression: 1. Normal colon and terminal ileum mucosa 2. Diverticulosis 3. Internal hemorrhoids Recommendations: -Repeat colonoscopy in 10 years for asymptomatic colorectal cancer screening
[2024-05-28 12:37] VITALS: BP 100/56; PULSE 65; RESP 15; TEMP 36.7; O2SAT 96
[2024-05-28 12:42] VITALS: BP 105/51; PULSE 61; RESP 16; O2SAT 96
[2024-05-28 12:52] VITALS: BP 107/52; PULSE 64; RESP 17; O2SAT 99
[2024-05-28 13:04] VITALS: BP 113/59; PULSE 60; RESP 18; TEMP 36.7; O2SAT 99
--- NOTE | 2024-05-28 14:24 | PC.NURSE ---
PATIENT PROCEDURE WAS COMPLETED UNDER CONSCIOUS SEDATION.
== END 2024-05-28 13:42 | disposition home or self-care (01) ==
PROVIDERS: PCP Family Medicine; Visit Provider Internal Medicine
PROC: 0DJD8ZZ Inspection of Lower Intestinal Tract, Via Natural or Artificial Opening Endoscopic (ICD-10-PCS; CPT 45378; principal; 2024-05-28 14:50)
DX: Z12.11 Encounter for screening for malignant neoplasm of colon (principal); K57.30 Diverticulosis of large intestine without perforation or abscess without bleeding; K64.8 Other hemorrhoids; E11.9 Type 2 diabetes mellitus without complications; E03.9 Hypothyroidism, unspecified; E78.5 Hyperlipidemia, unspecified; G47.33 Obstructive sleep apnea (adult) (pediatric); Z90.3 Acquired absence of stomach [part of]; Z79.899 Other long term (current) drug therapy; Z98.890 Other specified postprocedural states
CPT/HCPCS: 45378; J2250; J2310; J2405; J3010

== ENCOUNTER → 2024-05-28 10:33 | Outpatient (BNV) | payer OTHER, SELFPAY | PROVIDERS: PCP Family Medicine; Visit Provider Internal Medicine | DX: Z12.11 Encounter for screening for malignant neoplasm of colon (principal); K64.8 Other hemorrhoids; K57.30 Diverticulosis of large intestine without perforation or abscess without bleeding | CPT/HCPCS: 45378 ==

== ENCOUNTER 2024-11-18 12:52 | Outpatient (AMB) | payer OTHER, SELFPAY ==
--- NOTE | 2024-11-18 12:54 | MHC.OFFVISWM ---
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 She is approximately 5 years 2 months post sleeve gastrectomy performed on 09/08/2019. She was last seen in the office 07/20/2023 with a weight of 172.4 lb with a BMI of 31. Weight today is 187.2 lb with a BMI of 33.7. She states she was embarrassed and doesn't want to ask for help. Taking [employer] multivit for 50 and over, also taking oregano, marenga, Vit D. Meal plan: none 16 oz diet coke daily, no juice, no etoh, no tobacco Exercise plan: none gym membership PF Any post op complications: none CHARIS: non-compliant DM: resolved HTN: never Hyperlipidemia: improved GERD:?0-5 scale ??0 = no symptoms ??1 = symptoms noticeable but not bothersome 2 =symptoms bothersome but not daily ? 3 = symptoms bothersome and daily 4 = symptoms affect daily activities 5 = symptoms are incapacitating, unable to do daily activities ? How bad is the heartburn: 0 ? Heartburn while lying down: 0 ? Heartburn when standing up: 0 ? Heartburn after meals: 0 ? Does heartburn change your diet: 0 ? Does heartburn wake you up from sleep: 0 ? Do you have difficulty swallowin ? Do you have pain with swallowin ? If you take medicine for your reflux, does this affect your daily life: 0 Satisfaction with present condition - satisfied or not satisfied: not satisfied [facility] Medical History DMII (diabetes mellitus, type 2) Surgical History Hx of hernia repair Hx laparoscopic cholecystectomy History of shoulder surgery Hx of meniscectomy of right knee Hx of thyroidectomy S/P laparoscopic sleeve gastrectomy Family History Sister Thyroid ca Social History Are you a primary career services director to a significant other at home: No Do you presently have visiting nurse or other home services: No Alcohol intake: never Patient Tobacco Use Status: Never used Tobacco Physical Exam Vital Signs: Last Vital Signs Pulse 79 11/18/24 12:59 BP 137/74 11/18/24 12:59 Pulse Ox 99 11/18/24 12:59 BMI result Body Mass Index 33.7 Const General: cooperative and no acute distress Orientation/consciousness: patient oriented x3 Resp Effort & Inspection: normal respiratory effort Auscultation: clear to auscultation bilaterally Cardio Rate: regular rate Rhythm: regular rhythm GI Inspection: Yes normal to inspection and Yes incision (well healed) Palpation (GI): Soft to palpation and no masses Neuro General: patient oriented x3 Assessment & Plan Assessment & Plan (1) Status post sleeve gastrectomy: Code(s): Z90.3 - Acquired absence of stomach [part of] Category: Surgical Plan: Patient reports that she was dissatisfied with the look of her face when she lost weight. She is willing to lose weight currently as she feels as though she weighs too much. 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 We have given her a new meal plan: Premier protein ready to drink per her choice 8-10 am premier protein ready to drink shake 12-2 pm half premier protein ready to drink mixed with 6 oz of unsweetened almond milk 6 pm meal with 7 forks protein and 7 forks salad or vegetables Resume exercise at [employer] with a goal of burning 300 calories per day. She may also incorporate weight training to be done prior to cardio, 25 minutes weight training then 300 calories burned in cardio. Check 5 year postop labs. Return to clinic 1 month. She was given my cell phone number to send me her weight measurements weekly and text with any questions or concerns Orders: Orders Complete Blood Count Auto Diff Today E78.9 - Disorder of lipoprotein metabolism, unspecified, G47.33 - Obstructive sleep apnea (adult) (pediatric), Z90.3 - Acquired absence of stomach [part of] Lipid Panel Today E78.9 - Disorder of lipoprotein metabolism, unspecified, G47.33 - Obstructive sleep apnea (adult) (pediatric), Z90.3 - Acquired absence of stomach [part of] IRON PROFILE Today E78.9 - Disorder of lipoprotein metabolism, unspecified, G47.33 - Obstructive sleep apnea (adult) (pediatric), Z90.3 - Acquired absence of stomach [part of] Vitamin B12 and Folate Today E78.9 - Disorder of lipoprotein metabolism, unspecified, G47.33 - Obstructive sleep apnea (adult) (pediatric), Z90.3 - Acquired absence of stomach [part of] Zinc Today E78.9 - Disorder of lipoprotein metabolism, unspecified, G47.33 - Obstructive sleep apnea (adult) (pediatric), Z90.3 - Acquired absence of stomach [part of] C Reactive Protein Today E78.9 - Disorder of lipoprotein metabolism, unspecified, G47.33 - Obstructive sleep apnea (adult) (pediatric), Z90.3 - Acquired absence of stomach [part of] Vitamin B1 Today E78.9 - Disorder of lipoprotein metabolism, unspecified, G47.33 - Obstructive sleep apnea (adult) (pediatric), Z90.3 - Acquired absence of stomach [part of] Insulin Today E78.9 - Disorder of lipoprotein metabolism, unspecified, G47.33 - Obstructive sleep apnea (adult) (pediatric), Z90.3 - Acquired absence of stomach [part of] Hemoglobin A1c Today E78.9 - Disorder of lipoprotein metabolism, unspecified, G47.33 - Obstructive sleep apnea (adult) (pediatric), Z90.3 - Acquired absence of stomach [part of] Comprehensive Met. Panel Today E78.9 - Disorder of lipoprotein metabolism, unspecified, G47.33 - Obstructive sleep apnea (adult) (pediatric), Z90.3 - Acquired absence of stomach [part of] Vitamin A Today E78.9 - Disorder of lipoprotein metabolism, unspecified, G47.33 - Obstructive sleep apnea (adult) (pediatric), Z90.3 - Acquired absence of stomach [part of] TSH reflex Free T4 Today E78.9 - Disorder of lipoprotein metabolism, unspecified, G47.33 - Obstructive sleep apnea (adult) (pediatric), Z90.3 - Acquired absence of stomach [part of] Ferritin Today E78.9 - Disorder of lipoprotein metabolism, unspecified, G47.33 - Obstructive sleep apnea (adult) (pediatric), Z90.3 - Acquired absence of stomach [part of] Vitamin D 25-OH Total Today E78.9 - Disorder of lipoprotein metabolism, unspecified, G47.33 - Obstructive sleep apnea (adult) (pediatric), Z90.3 - Acquired absence of stomach [part of]
[2024-11-18 12:59] VITALS: BP 137/74; PULSE 79; O2SAT 99; BMI 33.7
--- OUTSIDE RECORDS SUMMARY | 2024-11-18 15:38 | XMS_ITS | Patient Health Record ---
Author Organization 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 Name Role Phone PILIHOLLY Primary Care Provider Concepcion Cassidy Unavailable [phone] Reason For Referral No Information Medications Medication SIG (Take, Route, Frequency, Duration) Notes Start Date End Date Status Multivitamins Orally Active Vitamin D 1000 UNIT 1 tablet Orally Once a day Active Lisinopril-hydroCHLOROthiazi de 10-12.5 MG 1 tablet Orally Once a day Active metFORMIN HCl 500MG Active Problems Problem Type SNOMED Code ICD Code Onset Dates Problem Status W/U Status Risk Notes Problem Morbid obesity (disorder) (611470008) Morbid (severe) obesity due to excess calories (E66.01) Active confirmed Plan Of Treatment Pending Test Test Name Order Date Ultrasound : Breast, right 12/11/2014 MAMMOGRAM, SCREENING 12/11/2014 Urinalysis 02/21/2018 Ultrasound : Pelvic 02/16/2017 RANDOM BLOOD SUGAR 01/31/2016 MM Digital Mammo Screening 02/21/2018 Insurance Providers Payer Name Payer Address Payer Phone Subscriber Number Group Number Insured Name Patient Relationship to Insured Coverage Start Date Coverage End Date [employer] [address] [place], [place] [id number] [address] MARTELLALEJANDRO BRAUN Self - patient is the insured Medical (General) History Medical History History ICD Code Back and Shoulder Pains Unspecified lump in breast N63 Changes in skin texture R23.4 Surgical History Surgery Date(Month/Year) Cholecystectomy Left Shoulder Surgery Colonoscopy BREAST REDUCTION 02/2015 Rt Knee Surgery 10/2016 Hospitalization History Reason Date(Month/Year) See Surgical Hx
--- OUTSIDE RECORDS SUMMARY | 2024-11-18 15:38 | XMS_ITS | Data Portability ---
Author Organization [facility], Main Office Address [address] [place] [address] Care Team Providers Care Vending Service Technician Name Role Phone OFELIA LUEVANO Head Sugar Reprocess Operator [facility] MANAG[facility] PROGRAM Bariatric Surgeon [employer] KRIS HERNANDEZ Retail Department Manager CLAUDIA STERN Cardiovascular And Thorac ic Surgeon SANDY INGRAM Welt Treater [phone] CAYETANO CONNER General Surgeon SAI COBIAN Primary Care Provider [facility] Sleep Medicine Assessment Encounter Date Assessment Date Assessment LastModified by Organization Details LastModified Time 04/10/2023 04/10/2023 This service was provided using telemedicine. Patient consented to telephone visit Patient was located in the [facility]. Provider was located in the office. No other persons participated in the telemedicine visit except for the patient unless otherwise indicated here. {{}} Total time of visit was 15 minutes. tanya Not available 04/10/2023 12:06:28 Plan of Treatment Reminders Order Date Submit Date Provider Last Modified By Organization Details Last Modified Time Details Appointments PE EST 2024 02:30P Justin Cobian MD Not available Not available Not available Lab hemo glob in A1C, fing erst ick 01/21/2 024 tanya In-Office Order, Internal Use Only DO Not Attach Compendium DO Not Attach Compendium, Do Not Delete/merge, [id number] 01/22/2024 12:22:06 aspa rtat e figueroa otra nsfe rase /ala nine figueroa otra nsfe rase , rati o, seru m or reji le (OBS ) 2023 024 MOOSE [facility] (Centralized Electronic Ordering - All Locations), Patient Can Go To The Location Of Their Choice, [id number] 03/25/2024 06:08:15 lipi d yoandye l, seru m 2023 024 MOOSE [facility], [address], [address], [place], [address], 10/25/2023 11:47:48 CBC w/ auto diff 2023 024 MOOSE [facility], [address], [address], [place], [address], 10/25/2023 11:14:36 CMP, seru m or reji le 2023 024 MOOSE [facility], [address], [address], [place], [address], 10/25/2023 11:47:45 rf (rhe umat oid fact or), seru m 2023 024 MOOSE [facility], [address], [address], [place], [address], 10/25/2023 11:47:50 ccp (cyc lic citr ulli brandie d pept radhika) igg, seru m 2023 024 MOOSE [facility], [address], [address], [place], [address], 10/26/2023 21:06:14 ESR (noy claros sedi ment atio n rate ), bloo d 2023 024 MOOSE [facility], [address], [address], [place], [address], 10/25/2023 11:21:03 C-re acti ve prot ein, josy srinivasan tive , seru m or plas ma 2023 024 MOOSE [facility], [address], [address], [place], [address], 10/25/2023 11:47:47 magn esiu m, seru m or plas ma 2023 024 MOOSE [facility], [address], [address], [place], [address], 10/25/2023 11:47:49 HbA1 c (hem oglo bin A1c) , bloo d 2023 024 MOOSE [facility], [address], [address], [place], [address], 10/25/2023 11:29:31 micr oalb umin , urin e 2023 024 MOOSE [facility], [address], [address], [place], [address], 10/25/2023 19:01:32 T4, free , seru m 2022 023 MOOSE [facility], [address], [address], [place], [address], 10/21/2022 16:38:19 TSH, seru m or plas ma 2022 023 MOOSE [facility], [address], [place], [address], 10/21/2022 16:57:09 Referral hand surg figueroa refe rral 2023 024 debbie [facility], [address], [address], [place], [address], 04/21/2024 10:09:[address] refe rral - Need s colo n canc er scre enin g 2023 024 MOOSE [facility] , 3rd Fl, [place], [address], 11/23/2023 13:55:28 gene ral surg figueroa refe rral - abdo giana l phan ia, woul d like repa ir, hx slee ve in 2018 023 [email or web address] [facility], [address], [place], [address], 06/06/2023 13:44:12 neur olog ist refe rral - left side d head pain , more supe porschei al, has CT with out acut e find ings , 2022 023 [email or web address] [facility], [address] [address], [place], [address], 12/20/2022 09:59:02 Procedures colo nosc opy scre enin g (PRO C) 2023 024 billie Not available 10/23/2023 12:25:31 Surgeries None lizzeth rded . Imaging MAMM O, scre enin g, bila aly l - Perf orm Diag nost ic Mamm ogra m and Michelle st Ultr asou nd if need ed / Perf orm Ultr asou nd Guid ed Aspi rati on and/ or [place] [facility] Biop sy if kody ante d [address] (Ultrasound), [address] [place], [address], 10/23/2023 11:59:31 XR, hand , 3 or more view 2023 024 MOOSE Not available 10/31/2023 16:02:52 CT, head , w/o cont rast - left post erio r head pain , cons tant for 3 week s, puls atin g . Hx of thyr oid canc erRu le out mass or david dipika 2022 023 hans [facility], [address] , [place], [address], 11/28/2022 14:41:14 Medication Orders rosu vast atin 10 mg tabl et 2023 024 [id number], [address] [place], [address], 01/22/2024 11:33:16 Patient TargetsNo targets recorded. Patient Instructions Encounter Date Encounter Id Patient Instructions Last Modified By Organization Details Last Modified Time 10/23/2023 [id number] well visit, wome n 50 to 65: care instructions [email or web address] Not available 10/23/2023 11:48:34 learning about colon cancer [email or web address] Not available 10/23/2023 11:48:34 starting a weigh t loss plan: care instructions [email or web address] Not available 10/23/2023 11:48:33 01/22/2024 [id number] type 2 diabetes: care instructions [email or web address] Not available 01/22/2024 12:22:06 high cholesterol : care instructions ckokar Not available 01/22/2024 11:33:12 Reason for Referral General Surgeon Referral for Hernia of anterior abdominal wall abdominal hernia, would like repair, hx sleeve in 2019 Referring Physician: [facility], Encounter Date: 12/06/2022 Neurologist Referral for Hea dache left sided head pain , more supeficial, has CT without acute findings, Referring Physician: [facility], Encounter Date: 12/06/2022 Head Sugar Reprocess Operator Referral for Screening for malignant neoplasm of colon Needs colon cancer screening Referring Physician: [facility], Encounter Date: 10/23/2023 Hand Surgeon Referral for Pa in in right hand Referring Physician: [facility], Encounter Date: 10/23/2023 Results Created Date Observation Date Name Description Value Unit Range Abnormal Flag Note LastModifiedBy Organization Detail LastModifiedTime 10/21/1910/21/2022 FREE T4 free T4 1.62 NG/dL (0.70- 1.80) Not Available [facility] (Centralized Electronic Ordering - All Locations) Patient Can Go To The Location Of Their Choice, 10/21/2022 16:38:19 10/21/19 23 10/21/2022 TSH TSH <0.01 uIU/m L (0.4-4 .2) low Not Available [facility] (Centralized Electronic Ordering - All Locations) Patient Can Go To The Location Of Their Choice, 10/21/2022 16:57:09 04/26/2004/26/2023 BASIC METAB OLIC PANEL glucose 83 mg/dL (70-99 ) Not Available [facility] (Centralized Electronic Ordering - All Locations) Patient Can Go To The Location Of Their Choice, 04/26/2023 12:39:02 04/26/2004/26/2023 BASIC METAB OLIC PANEL BUN 17 mg/dL (8-23) Not Available [facility] (Centralized Electronic Ordering - All Locations) Patient Can Go To The Location Of Their Choice, 04/26/2023 12:39:02 04/26/2004/26/2023 BASIC METAB OLIC PANEL creatinine 0.7 mg/dL (0.5-1 .0) Not Available [facility] (Centralized Electronic Ordering - All Locations) Patient Can Go To The Location Of Their Choice, 04/26/2023 12:39:02 04/26/2004/26/2023 BASIC METAB OLIC PANEL sodium 143 mmol/ L (133-1 45) Not Available [facility] (Centralized Electronic Ordering - All Locations) Patient Can Go To The Location Of Their Choice, 04/26/2023 12:39:02 04/26/2004/26/2023 BASIC METAB OLIC PANEL potassium 4.5 mmol/ L (3.6-5 .2) Not Available [facility] (Centralized Electronic Ordering - All Locations) Patient Can Go To The Location Of Their Choice, 04/26/2023 12:39:02 04/26/2004/26/2023 BASIC METAB OLIC PANEL chloride 106 mmol/ L (98-10 7) Not Available [facility] (Centralized Electronic Ordering - All Locations) Patient Can Go To The Location Of Their Choice, 04/26/2023 12:39:02 04/26/20 23 04/26/2023 BASIC METAB OLIC PANEL bicarbonate 28 mmol/ L (22-29 ) Not Available [facility] (Centralized Electronic Ordering - All Locations) Patient Can Go To The Location Of Their Choice, 04/26/2023 12:39:02 04/26/2004/26/2023 BASIC METAB OLIC PANEL anion gap 9 (4-17) Not Available [facility] (Centralized Electronic Ordering - All Locations) Patient Can Go To The Location Of Their Choice, 04/26/2023 12:39:02 04/26/20 23 04/26/2023 BASIC METAB OLIC PANEL calcium 9.7 mg/dL (8.6-1 0.5) Not Available [facility] (Centralized Electronic Ordering - All Locations) Patient Can Go To The Location Of Their Choice, 04/26/2023 12:39:02 04/26/2004/26/2023 BASIC METAB OLIC PANEL estimated GFR creatinine 100 mL/mi n/1.7 3_M2 Creat inine based estim ated glome rular filtr ation (eGFR ) in adult s is calcu lated using the Natio nal Kidne y Found ation recom sergei d 2020 CKD-E PI equat ion. Estim ates GFR from serum creat inine , age and sex. Not Available [facility] (Centralized Electronic Ordering - All Locations) Patient Can Go To The Location Of Their Choice, 04/26/2023 12:39:02 04/26/2004/26/2023 FREE T4 free T4 1.68 NG/dL (0.70- 1.80) Not Available [facility] (Centralized Electronic Ordering - All Locations) Patient Can Go To The Location Of Their Choice, 04/26/2023 12:46:12 04/26/2004/26/2023 TSH TSH 0.01 uIU/m L (0.4-4 .2) low Not Available [facility] (Centralized Electronic Ordering - All Locations) Patient Can Go To The Location Of Their Choice, 04/26/2023 12:46:13 10/25/19 24 10/25/2023 COMPL ETE CBC WITH DIFF WBC 3.5 K/mm3 (4.0-1 1.0) low Not Available [facility] (Centralized Electronic Ordering - All Locations) Patient Can Go To The Location Of Their Choice, 10/25/2023 11:14:36 10/25/1910/25/2023 COMPL ETE CBC WITH DIFF RBC 4.70 M/mm3 (4.20- 5.40) Not Available [facility] (Centralized Electronic Ordering - All Locations) Patient Can Go To The Location Of Their Choice, 10/25/2023 11:14:36 10/25/1910/25/2023 COMPL ETE CBC WITH DIFF HGB 13.6 gm/dL (11.7- 15.5) Not Available [facility] (Centralized Electronic Ordering - All Locations) Patient Can Go To The Location Of Their Choice, 10/25/2023 11:14:36 10/25/1910/25/2023 COMPL ETE CBC WITH DIFF HCT 41.4 % (35.7- 45.8) Not Available [facility] (Centralized Electronic Ordering - All Locations) Patient Can Go To The Location Of Their Choice, 10/25/2023 11:14:36 10/25/1910/25/2023 COMPL ETE CBC WITH DIFF MCV 88.1 fL (80.0- 100.0) Not Available [facility] (Centralized Electronic Ordering - All Locations) Patient Can Go To The Location Of Their Choice, 10/25/2023 11:14:36 10/25/1910/25/2023 COMPL ETE CBC WITH DIFF MCH 28.9 pg (27.0- 34.0) Not Available [facility] (Centralized Electronic Ordering - All Locations) Patient Can Go To The Location Of Their Choice, 10/25/2023 11:14:36 10/25/1910/25/2023 COMPL ETE CBC WITH DIFF MCHC 32.9 g/dL (33.0- 37.0) low Not Available [facility] (Centralized Electronic Ordering - All Locations) Patient Can Go To The Location Of Their Choice, 10/25/2023 11:14:36 10/25/1910/25/2023 COMPL ETE CBC WITH DIFF plt 211 K/mm3 (150-4 60) Not Available [facility] (Centralized Electronic Ordering - All Locations) Patient Can Go To The Location Of Their Choice, 10/25/2023 11:14:36 10/25/1910/25/2023 COMPL ETE CBC WITH DIFF RDW-SD 38.2 fL (<47.0 ) Not Available [facility] (Centralized Electronic Ordering - All Locations) Patient Can Go To The Location Of Their Choice, 10/25/2023 11:14:36 10/25/1910/25/2023 COMPL ETE CBC WITH DIFF MPV 9.4 fL (9.4-1 2.4) Not Available [facility] (Centralized Electronic Ordering - All Locations) Patient Can Go To The Location Of Their Choice, 10/25/2023 11:14:36 10/25/1910/25/2023 COMPL ETE CBC WITH DIFF automated NRBC 0.0 #/100 _WBC' s Not Available [facility] (Centralized Electronic Ordering - All Locations) Patient Can Go To The Location Of Their Choice, 10/25/2023 11:14:36 10/25/1910/25/2023 COMPL ETE CBC WITH DIFF abs. NRBC 0.0 K/mm3 Not Available [facility] (Centralized Electronic Ordering - All Locations) Patient Can Go To The Location Of Their Choice, 10/25/2023 11:14:36 10/25/1910/25/2023 COMPL ETE CBC WITH DIFF neut # 1.5 K/mm3 (1.3-7 .0) Not Available [facility] (Centralized Electronic Ordering - All Locations) Patient Can Go To The Location Of Their Choice, 10/25/2023 11:14:36 10/25/1910/25/2023 COMPL ETE CBC WITH DIFF lymph # 1.7 K/mm3 (0.8-3 .1) Not Available [facility] (Centralized Electronic Ordering - All Locations) Patient Can Go To The Location Of Their Choice, 10/25/2023 11:14:36 10/25/1910/25/2023 COMPL ETE CBC WITH DIFF mono# 0.3 K/mm3 (0.4-0 .9) low Not Available [facility] (Centralized Electronic Ordering - All Locations) Patient Can Go To The Location Of Their Choice, 10/25/2023 11:14:36 10/25/1910/25/2023 COMPL ETE CBC WITH DIFF eo # 0.0 K/mm3 (0.0-0 .4) Not Available [facility] (Centralized Electronic Ordering - All Locations) Patient Can Go To The Location Of Their Choice, 10/25/2023 11:14:36 10/25/1910/25/2023 COMPL ETE CBC WITH DIFF baso # 0.0 K/mm3 (0.0-0 .1) Not Available [facility] (Centralized Electronic Ordering - All Locations) Patient Can Go To The Location Of Their Choice, 10/25/2023 11:14:36 10/25/1910/25/2023 COMPL ETE CBC WITH DIFF abs. imm gran 0.0 K/mm3 Not Available [facility] (Centralized [facility] Ordering - All Locations) Patient Can Go To The Location Of Their Choice, 10/25/2023 11:14:36 10/25/1910/25/2023 COMPL ETE CBC WITH DIFF neut 41.3 % (44-76 ) low Not Available [facility] (Centralized Electronic Ordering - All Locations) Patient Can Go To The Location Of Their Choice, 10/25/2023 11:14:36 10/25/1910/25/2023 COMPL ETE CBC WITH DIFF lymph 47.7 % (15-43 ) high Not Available [facility] (Centralized Electronic Ordering - All Locations) Patient Can Go To The Location Of Their Choice, 10/25/2023 11:14:36 10/25/1910/25/2023 COMPL ETE CBC WITH DIFF monocyte 9.6 % (4.5-1 0.5) Not Available [facility] (Centralized Electronic Ordering - All Locations) Patient Can Go To The Location Of Their Choice, 10/25/2023 11:14:36 10/25/1910/25/2023 COMPL ETE CBC WITH DIFF eo 0.8 % (0-6) Not Available [facility] (Centralized Electronic Ordering - All Locations) Patient Can Go To The Location Of Their Choice, 10/25/2023 11:14:36 10/25/1910/25/2023 COMPL ETE CBC WITH DIFF baso 0.3 % (0-2) Not Available [facility] (Centralized Electronic Ordering - All Locations) Patient Can Go To The Location Of Their Choice, 10/25/2023 11:14:36 10/25/19 24 10/25/2023 COMPL ETE CBC WITH DIFF imm gran 0.3 % Not Available [facility] (Centralized Electronic Ordering - All Locations) Patient Can Go To The Location Of Their Choice, 10/25/2023 11:14:36 10/25/19 24 10/25/2023 SEDIM ENTAT ION RATE, AUTOM ATED sedimentatio n rate,automat ed 4 mm/HR (0-20) Not Available [facility] (Centralized [facility] Ordering - All Locations) Patient Can Go To The Location Of Their Choice, 10/25/2023 11:21:03 10/25/19 24 10/25/2023 HEMOG LOBIN A1C hemoglobin A1C 5.5 % (4.0-5 .6) MONIT ORING : In known diabe tic patie nts, hemog lobin A1c targe ts shoul d be discu ssed with healt h care provi haroon. DIAGN OSTIC USE: The Ameri can Diabe [place] Assoc iatio n (ADA) and the World Healt h Organ izati on (WHO) recom mend the use of HbA1c to diagn ose diabe chelsea using a thres hold of 6.5%. Patie nts who have an HbA1c betwe en 5.7% and 6.4% are consi dered at incre ased risk for devel oping diabe chelsea in the futur e. CAUTI ON: False ly low HbA1c resul ts may be obser lon in patie nts with hemol ytic anemi a, homoz ygous forms of abnor mal hemog lobin (e.g. SS, CC, SC), pregn roxy, recen t blood loss or hemog lobin F great er than 7%. Fruct osami ne may be used as an alter brandie test in these cases . REFER ENCE: ADA: Stand ards of Medic al Care in Diabe [place] 2019, The Journ al of Clini del and Appli ed Resea rch and Educa tion Volum e 43, Suppl ement 1 Not Available [facility] (Centralized Electronic Ordering - All Locations) Patient Can Go To The Location Of Their Choice, 10/25/2023 11:29:30 10/25/1910/25/2023 COMPR EHENS ANKITA METAB OLIC PANL glucose 88 mg/dL (70-99 ) Not Available [facility] (Centralized Electronic Ordering - All Locations) Patient Can Go To The Location Of Their Choice, 10/25/2023 11:47:45 10/25/1910/25/2023 COMPR EHENS ANKITA METAB OLIC PANL BUN 15 mg/dL (8-23) Not Available [facility] (Centralized Electronic Ordering - All Locations) Patient Can Go To The Location Of Their Choice, 10/25/2023 11:47:45 10/25/1910/25/2023 COMPR EHENS ANKITA METAB OLIC PANL creatinine 0.8 mg/dL (0.5-1 .0) Not Available [facility] (Centralized Electronic Ordering - All Locations) Patient Can Go To The Location Of Their Choice, 10/25/2023 11:47:45 10/25/1910/25/2023 COMPR EHENS ANKITA METAB OLIC PANL sodium 144 mmol/ L (133-1 45) Not Available [facility] (Centralized Electronic Ordering - All Locations) Patient Can Go To The Location Of Their Choice, 10/25/2023 11:47:45 10/25/1910/25/2023 COMPR EHENS ANKITA METAB OLIC PANL potassium 4.5 mmol/ L (3.6-5 .2) Not Available [facility] (Centralized Electronic Ordering - All Locations) Patient Can Go To The Location Of Their Choice, 10/25/2023 11:47:45 10/25/1910/25/2023 COMPR EHENS ANKITA METAB OLIC PANL chloride 108 mmol/ L (98-10 7) high Not Available [facility] (Centralized Electronic Ordering - All Locations) Patient Can Go To The Location Of Their Choice, 10/25/2023 11:47:45 10/25/19 24 10/25/2023 COMPR EHENS ANKITA METAB OLIC PANL bicarbonate 27 mmol/ L (22-29 ) Not Available [facility] (Centralized Electronic Ordering - All Locations) Patient Can Go To The Location Of Their Choice, 10/25/2023 11:47:45 10/25/1910/25/2023 COMPR EHENS ANKITA METAB OLIC PANL anion gap 9 (4-17) Not Available [facility] (Centralized Electronic Ordering - All Locations) Patient Can Go To The Location Of Their Choice, 10/25/2023 11:47:45 10/25/1910/25/2023 COMPR EHENS ANKITA METAB OLIC PANL albumin 4.2 gm/dL (3.4-4 .8) Not Available [facility] (Centralized Electronic Ordering - All Locations) Patient Can Go To The Location Of Their Choice, 10/25/2023 11:47:45 10/25/1910/25/2023 COMPR EHENS ANKITA METAB OLIC PANL calcium 9.1 mg/dL (8.6-1 0.5) Not Available [facility] (Centralized Electronic Ordering - All Locations) Patient Can Go To The Location Of Their Choice, 10/25/2023 11:47:45 10/25/1910/25/2023 COMPR EHENS ANKITA METAB OLIC PANL bilirubin,to mary lou 0.5 mg/dL (0-1.2 ) Not Available [facility] (Centralized Electronic Ordering - All Locations) Patient Can Go To The Location Of Their Choice, 10/25/2023 11:47:45 10/25/1910/25/2023 COMPR EHENS ANKITA METAB OLIC PANL total protein 6.6 gm/dL (6.2-8 .2) Not Available [facility] (Centralized Electronic Ordering - All Locations) Patient Can Go To The Location Of Their Choice, 10/25/2023 11:47:45 10/25/1910/25/2023 COMPR EHENS ANKITA METAB OLIC PANL Ag ratio 1.8 Not Available [facility] (Centralized Electronic Ordering - All Locations) Patient Can Go To The Location Of Their Choice, 10/25/2023 11:47:45 10/25/19 24 10/25/2023 COMPR EHENS ANKITA METAB OLIC PANL AST 20 U/L (0-32) Not Available [facility] (Centralized Electronic Ordering - All Locations) Patient Can Go To The Location Of Their Choice, 10/25/2023 11:47:45 10/25/1910/25/2023 COMPR EHENS ANKITA METAB OLIC PANL alk phos 105 U/L (35-10 4) high Not Available [facility] (Centralized Electronic Ordering - All Locations) Patient Can Go To The Location Of Their Choice, 10/25/2023 11:47:45 10/25/1910/25/2023 COMPR EHENS ANKITA METAB OLIC PANL ALT 18 U/L (0-33) Not Available [facility] (Centralized Electronic Ordering - All Locations) Patient Can Go To The Location Of Their Choice, 10/25/2023 11:47:45 10/25/1910/25/2023 COMPR EHENS ANKITA METAB OLIC PANL estimated GFR creatinine 90 mL/mi n/1.7 3_M2 Creat inine based estim ated glome rular filtr ation (eGFR ) in adult s is calcu lated using the Natio nal Kidne y Found ation recom sergei d 2020 CKD-E PI equat ion. Estim ates GFR from serum creat inine , age and sex. Not Available [facility] (Centralized Electronic Ordering - All Locations) Patient Can Go To The Location Of Their Choice, 10/25/2023 11:47:45 10/25/1910/25/2023 C-KACEY CTIVE PROTE IN C-reactive protein <0.3 mg/dL (0-0.5 ) Not Available [facility] (Centralized Electronic Ordering - All Locations) Patient Can Go To The Location Of Their Choice, 10/25/2023 11:47:47 10/25/1910/25/2023 LIPID PANEL cholesterol, total 202 mg/dL (<200) high Not Available [facility] ([facility] Ordering - All Locations) Patient Can Go To The Location Of Their Choice, 10/25/2023 11:47:48 10/25/1910/25/2023 LIPID PANEL triglyceride 128 mg/dL (<150) Not Available [facility] ([facility] Order[facility] - All Locations) Patient Can Go To The Location Of Their Choice, 10/25/2023 11:47:48 10/25/19 24 10/25/2023 LIPID PANEL HDL chol 63 mg/dL (>39) Not Available [facility] (Centralized Electronic Ordering - All Locations) Patient Can Go To The Location Of Their Choice, 10/25/2023 11:47:48 10/25/19 24 10/25/2023 LIPID PANEL LDL cholesterol, calculated 113 mg/dL (0-130 ) Not Available [facility] (Centralized Electronic Ordering - All Locations) Patient Can Go To The Location Of Their Choice, 10/25/2023 11:47:48 10/25/19 24 10/25/2023 LIPID PANEL non HDL cholesterol (calc) 139 mg/dL (<160) Not Available [facility] ([facility]ized [facility] Ordering - All Locations) Patient Can Go To The Location Of Their Choice, 10/25/2023 11:47:48 10/25/1910/25/2023 MAGNE SIUM magnesium 2.2 mg/dL (1.6-2 .3) Not Available [facility] (Centralized Electronic Ordering - All Locations) Patient Can Go To The Location Of Their Choice, 10/25/2023 11:47:49 10/25/1910/25/2023 RHEUM ATOID FACTO R rheumatoid factor 10.0 IU/mL (<14) Not Available [facility] ([facility] Ordering - All Locations) Patient Can Go To The Location Of Their Choice, 10/25/2023 11:47:50 10/25/1910/25/2023 URINA RY MICRO ALBUM IN micro-albumi n <12.0 mg/L (<20) The urine micro album in test is desig shefali to monit or renal funct ion. When scree fred for Bence Lorenz prote inuri a, urine elect ropho resis is recom sergei d. Not Available [facility] (Centralized Electronic Ordering - All Locations) Patient Can Go To The Location Of Their Choice, 10/25/2023 19:01:32 10/25/1910/25/2023 URINA RY MICRO ALBUM IN malb/creat ratio Unable to calcul ate mg/gm (0-20) Not Available [facility] (Centralized Electronic Ordering - All Locations) Patient Can Go To The Location Of Their Choice, 10/25/2023 19:01:32 10/25/19 24 10/25/2023 URINA RY MICRO ALBUM IN urine creat for micro albumin 163.5 mg/dL Not Available [facility] ([facility] Ordering - All Locations) Patient Can Go To The Location Of Their Choice, 10/25/2023 19:01:32 10/25/19 24 10/26/2023 CITRU LLINE PEPTI DE ANTIB DANAY ccp antibody 5 Refer ence range : 0 to 19 Unit: units (NOTE ) Negat ankita <20 Weak posit ankita 20 - 39 Moder ate posit ankita 40 - 59 Stron g posit ankita >59 Test perfo rmed by [facility], [address] [place] [address] Not Available [facility] (Centralized Electronic Ordering - All Locations) Patient Can Go To The Location Of Their Choice, 10/26/2023 21:06:14 10/30/1910/30/2023 COMPL ETE CBC WITH DIFF WBC 4.0 K/mm3 (4.0-1 1.0) Not Available [facility] (Centralized Electronic Ordering - All Locations) Patient Can Go To The Location Of Their Choice, 10/30/2023 10:17:57 10/30/1910/30/2023 COMPL ETE CBC WITH DIFF RBC 4.76 M/mm3 (4.20- 5.40) Not Available [facility] (Centralized Electronic Ordering - All Locations) Patient Can Go To The Location Of Their Choice, 10/30/2023 10:17:57 10/30/1910/30/2023 COMPL ETE CBC WITH DIFF HGB 14.1 gm/dL (11.7- 15.5) Not Available [facility] (Centralized Electronic Ordering - All Locations) Patient Can Go To The Location Of Their Choice, 10/30/2023 10:17:57 10/30/1910/30/2023 COMPL ETE CBC WITH DIFF HCT 41.3 % (35.7- 45.8) Not Available [facility] (Centralized Electronic Ordering - All Locations) Patient Can Go To The Location Of Their Choice, 10/30/2023 10:17:57 10/30/19 24 10/30/2023 COMPL ETE CBC WITH DIFF MCV 86.8 fL (80.0- 100.0) Not Available [facility] (Centralized Electronic Ordering - All Locations) Patient Can Go To The Location Of Their Choice, 10/30/2023 10:17:57 10/30/19 24 10/30/2023 COMPL ETE CBC WITH DIFF MCH 29.6 pg (27.0- 34.0) Not Available [facility] (Centralized Electronic Ordering - All Locations) Patient Can Go To The Location Of Their Choice, 10/30/2023 10:17:57 10/30/19 24 10/30/2023 COMPL ETE CBC WITH DIFF MCHC 34.1 g/dL (33.0- 37.0) Not Available [facility] (Centralized Electronic Ordering - All Locations) Patient Can Go To The Location Of Their Choice, 10/30/2023 10:17:57 10/30/1910/30/2023 COMPL ETE CBC WITH DIFF plt 220 K/mm3 (150-4 60) Not Available [facility] (Centralized Electronic Ordering - All Locations) Patient Can Go To The Location Of Their Choice, 10/30/2023 10:17:57 10/30/1910/30/2023 COMPL ETE CBC WITH DIFF RDW-SD 37.6 fL (<47.0 ) Not Available [facility] (Centralized Electronic Ordering - All Locations) Patient Can Go To The Location Of Their Choice, 10/30/2023 10:17:57 10/30/1910/30/2023 COMPL ETE CBC WITH DIFF MPV 9.2 fL (9.4-1 2.4) low Not Available [facility] (Centralized Electronic Ordering - All Locations) Patient Can Go To The Location Of Their Choice, 10/30/2023 10:17:57 10/30/1910/30/2023 COMPL ETE CBC WITH DIFF automated NRBC 0.0 #/100 _WBC' s Not Available [facility] (Centralized Electronic Ordering - All Locations) Patient Can Go To The Location Of Their Choice, 10/30/2023 10:17:57 10/30/1910/30/2023 COMPL ETE CBC WITH DIFF abs. NRBC 0.0 K/mm3 Not Available [facility] (Centralized Electronic Ordering - All Locations) Patient Can Go To The Location Of Their Choice, 10/30/2023 10:17:57 10/30/1910/30/2023 COMPL ETE CBC WITH DIFF neut # 2.0 K/mm3 (1.3-7 .0) Not Available [facility] (Centralized Electronic Ordering - All Locations) Patient Can Go To The Location Of Their Choice, 10/30/2023 10:17:57 10/30/1910/30/2023 COMPL ETE CBC WITH DIFF lymph # 1.7 K/mm3 (0.8-3 .1) Not Available [facility] (Centralized Electronic Ordering - All Locations) Patient Can Go To The Location Of Their Choice, 10/30/2023 10:17:57 10/30/1910/30/2023 COMPL ETE CBC WITH DIFF mono# 0.3 K/mm3 (0.4-0 .9) low Not Available [facility] (Centralized Electronic Ordering - All Locations) Patient Can Go To The Location Of Their Choice, 10/30/2023 10:17:57 10/30/1910/30/2023 COMPL ETE CBC WITH DIFF eo # 0.0 K/mm3 (0.0-0 .4) Not Available [facility] (Centralized Electronic Ordering - All Locations) Patient Can Go To The Location Of Their Choice, 10/30/2023 10:17:57 10/30/1910/30/2023 COMPL ETE CBC WITH DIFF baso # 0.0 K/mm3 (0.0-0 .1) Not Available [facility] (Centralized Electronic Ordering - All Locations) Patient Can Go To The Location Of Their Choice, 10/30/2023 10:17:57 10/30/1910/30/2023 COMPL ETE CBC WITH DIFF abs. imm gran 0.0 K/mm3 Not Available [facility] (Centralized [facility] Ordering - All Locations) Patient Can Go To The Location Of Their Choice, 10/30/2023 10:17:57 10/30/19 24 10/30/2023 COMPL ETE CBC WITH DIFF neut 49.5 % (44-76 ) Not Available [facility] (Centralized Electronic Ordering - All Locations) Patient Can Go To The Location Of Their Choice, 10/30/2023 10:17:57 10/30/1910/30/2023 COMPL ETE CBC WITH DIFF lymph 40.9 % (15-43 ) Not Available [facility] (Centralized Electronic Ordering - All Locations) Patient Can Go To The Location Of Their Choice, 10/30/2023 10:17:57 10/30/1910/30/2023 COMPL ETE CBC WITH DIFF monocyte 8.2 % (4.5-1 0.5) Not Available [facility] (Centralized Electronic Ordering - All Locations) Patient Can Go To The Location Of Their Choice, 10/30/2023 10:17:57 10/30/1910/30/2023 COMPL ETE CBC WITH DIFF eo 1.0 % (0-6) Not Available [facility] (Centralized Electronic Ordering - All Locations) Patient Can Go To The Location Of Their Choice, 10/30/2023 10:17:57 10/30/1910/30/2023 COMPL ETE CBC WITH DIFF baso 0.2 % (0-2) Not Available [facility] (Centralized Electronic Ordering - All Locations) Patient Can Go To The Location Of Their Choice, 10/30/2023 10:17:57 10/30/1910/30/2023 COMPL ETE CBC WITH DIFF imm gran 0.2 % Not Available [facility] (Centralized Electronic Ordering - All Locations) Patient Can Go To The Location Of Their Choice, 10/30/2023 10:17:57 10/30/1910/30/2023 SEDIM ENTAT ION RATE, AUTOM ATED sedimentatio n rate,automat ed 2 mm/HR (0-20) Not Available [facility] (Centralized Electronic Ordering - All Locations) Patient Can Go To The Location Of Their Choice, 10/30/2023 10:28:34 10/30/1910/30/2023 C-KACEY CTIVE PROTE IN C-reactive protein <0.3 mg/dL (0-0.5 ) Not Available [facility] (Centralized Electronic Ordering - All Locations) Patient Can Go To The Location Of Their Choice, 10/30/2023 10:51:15 01/22/20 24 01/22/2024 hemog lobin A1C, finge rstic k A1C 5.2 % 4-6 normal Not Available In-Office Order Internal Use Only DO Not Attach Compendium DO Not Attach Compendium, Do Not Delete/merge, [id number] 01/21/2024 18:22:09 03/24/20 24 03/24/2024 ALT+A ST AST (SGOT) 24 IU/L 0-40 Not Available [facility] ([facility]) [address] [place], [address], 03/25/2024 06:08:15 03/24/20 24 03/24/2024 ALT+A ST ALT (SGPT) 18 IU/L 0-32 Not Available [facility] ([facility]) [address] [place], [address], 03/25/2024 06:08:15 11/16/19 23 11/16/2022 MAMMO , scree fred, digit al, bilat eral PROCED URE: MM Digita l Mammo Screen ing INDICA TION: Screen ing for breast cancer . COMPAR CHITO: Multip le priors , most recent 022 TECHNI QUE: Full-f ield digita l CC and MLO 3D tomosy nthesi s images of both breast s were acquir ed. Comput er-aid ed detect ion (CAD) was utiliz ed in the interp retati on of this study. DENSIT Y: The breast tissue contai ns scatte red areas of fibrog landul ar densit y. FINDIN GS: No suspic ious masses , suspic ious microc alcifi cation s, or areas of cristina ectura l distor tion are seen in either breast to sugges t malign roxy. IMPRES PREMA: No mammog raphic eviden ce of malign roxy. RECOMM ENDATI ON: Annual mammog raphic screen ing BI-RAD S: 1 (Negat ankita) Lay letter mailed to balwinder evaristo WSN: [id number] Orderi ng Physic melissa: Kody Cobian Dictat ed By: Spike SOUZA, Luke Robles Dictat ed Date/T windy: 4:54 pm Review ed By: Luke Lala MD Signed By: Luke Lala MD Signed Date/T windy: 4:54 pm Transc ribed By: CL Transc riptio n Date/T windy: 4:51 pm Birads : Patien t Class: Outpat ient [facility] (Outpt Imaging) [address], [place], [address], 12/06/2022 10:22:26 11/16/19 23 11/16/2022 MAMMO , scree fred, bilat eral No observ ation record ed. [facility] [address], [place], [address], 12/06/2022 10:22:26 11/19/19 23 11/17/2022 CT, head, w/o contr ast CT Head/B rain W+W/O Contra st Reason : Headac hes. Histor y of thyroi d carcin alejo. TECHNI QUE: Head CT was perfor med before and after the admini strati on of intrav enous contra st, using axial techni que and recons tructe d in axial and mejia l plane. 100 mL Isovue 300 was admini stered . Iterat ankita recons tructi on techni ques are used to optimi ze dose and image qualit y. CTDIvo l Head: 36.39 mGy, DLP Head: 1310 mGy*cm . COMPAR CHITO: None. FINDIN GS: Hand Cigar Maker View Findin gs, Lines and Tubes: None. BRAIN and EXTRA- AXIAL SPACES : The 4th ventri radha is midlin e and the horizontal boring mill operator ior fossa struct ures are grossl y unrema rkable . The ventri cles and sulci are normal in size. There is no hemorr kandi, midlin e shift, or mass effect . Blevins-w ravindra differ entiat ion is preser lon withou t eviden ce of acute conflu ent lobar infarc tion. There is calcif icatio n in the bilate ral basal gangli a, which is not unusua l for the patien t's age. No extra- axial collec tion is seen. 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 There is no defini te abnorm al enhanc ement in the brain or mening es. CALVAR IUM, SKULL BASE AND SOFT TISSUE S: No fractu res or suspic ious bony lesion s. The parana rajinder sinuse s and mastoi d air cells are clear. Visual ized orbits and globes are intact . The extrac ranial soft tissue s are unrema rkable . IMPRES PREMA: No defini te eviden ce of intrac ranial metast ases. Please note if there is high clinic al suspic ion for intrac ranial metast atic diseas e, MRI of the brain with and withou t contra st would have better sensit ivity. WSN: [id number] Orderi ng Physic melissa: Tenisha packer PHOTOGRAMMETRIC COMPILATION SPECIALIST, Michaela Tolliver Dictat ed By: Bety Mayorga MD Dictat ed Date/T windy: 10:47 a Review ed By: Bety Mayorga MD Signed By: Bety Mayorga MD Signed Date/T windy: 10:47 am Transc ribed By: CL Transc ribed Date/T windy: 10:43 am Patien t Class: Outpat ient [email or web address] (Out[facility] Imaging) [address] , [place], [address], 12/06/2022 10:22:26 10/31/19 24 10/31/2023 XR, hand, 3 or more view Examin ation: Right hand perfor med on 10/31/19 24. Histor y: Reason : pain in right hand Findin gs: Fronta l, obliqu e, and latera l views of the right hand are submit contreras. No fractu res or disloc ations are demons trated . Diffus e joint space narrow ing involv ing the proxim al and distal interp halang eal joints of all digits is seen withou t produc tive change . Minima l diffus e soft tissue promin ence is noted. IMPRES PREMA: Minima l osteoa rthrit ic change . There is no acute osseou s abnorm ality. WSN: [id number] Orderi ng Physic melissa: Kody Cobian Dictat ed By: Paloma Sutton MD Dictat ed Date/T windy: 3:59 pm Review ed By: Paloma Sutton MD Signed By: Paloma Sutton MD Signed Date/T windy: 3:59 pm Transc ribed By: CSB Transc ribed Date/T windy: 3:58 pm Patien t Class: [facility]pat [email or web address]) [address] [place], [address], 11/28/2023 14:57:24 10/31/19 24 10/31/2023 XR, hand, 3 or more view No observ ation record ed. [email or web address] [facility] [address] [place], [address], 11/02/2023 08:57:11 Result Notes None recorded. Problems Name Problem SNOMED Code Status Onset Date Resolution Date Notes Provider Name and Address Organization Details Recorded Time Obstruct ankita sleep apnea syndrome 88907498 Active 2016 Not Available [employer] 0 17:27:33 [facility] prema 53876018 Completed 201609/27/2020 Veda devine, [facility] [place] 2 14:59:07 Impaired fasting glycemia 384473036 Completed 201609/28/2017 Meghan Briscoe PA-C [address], [place], [address] , [facility] [place] 8 13:59:30 Type 2 diabetes mellitus without complica tion 817666386 Active 2017 Not Available [employer] 0 17:27:33 Hyperlip idemia 23507862 Completed 201704/09/2023 Sai Cobian MD [address], [place], [address] , [facility] 3 17:36:39 Obesity 502529386 Active 2018 Not Available [facility] 0 17:27:33 Type 2 diabetes mellitus 63640002 Completed 201801/05/2020 Meghan Briscoe PA-C [address] [facility] [address], [place], [address] , [facility] 0 16:00:17 History of bariatri c surgical procedur e 607626204 Active 2018 Gastric sleeve Francis Zazueta MD [address] [facility] [address], [place], [address] , [facility] 1 12:11:53 Dominant nodule of thyroid 712368842 Active 2020 PT had FNA on the right of 2 nodules, results pending Michaela Russo null, 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 2 16:50:06 [facility] hyperten prema 22646567 Active 2021 Veda Solis null, [facility] 2 14:59:07 Problem Notes None recorded. Procedures Surgical History Date Name Laterality Status Provider Name and Address Organization Details Recorded Time 024 Diabetic Foot Exam (Monofilament) completed Sai Cobian MD [address] [address], [place], [address], [facility] 01/21/2024 18:21:29 024 Diabetic Foot Exam (Monofilament) completed Sai Cobian MD [address] [address], [place], [address], [facility] 10/23/2023 07:40:32 023 laparoscopic procedure completed Debbie Yap [facility] 06/28/2023 09:31:26 023 Most Recent Mammogram completed Debbie Yap [facility] 11/17/2022 09:16:12 022 Diabetic Foot Exam (Monofilament) completed Sai Cobian MD [address], [place], [address], [facility] 12/06/2021 08:39:11 022 Mammogram screening completed Lissett Ribeiro [facility] 11/16/2021 10:37:04 022 Date of Last Pap Smear completed Lissett Ribeiro [facility] 01/11/2022 13:40:23 021 total thyroidectomy completed Christine Woo [facility] 10/14/2021 16:03:05 020 Diabetic Foot Exam (Monofilament) completed Latesha Obrien [facility] 01/05/2020 15:18:33 019 Bariatric Surgery completed Francis Zazueta MD [address], [place], [address], [facility] 09/27/2020 12:01:38 019 Diabetic Foot Exam (Monofilament) completed Js Montoya [facility] 08/15/2019 16:34:29 019 Diabetic Foot Exam (Monofilament) completed Daniella Galaviz MA [facility] 04/28/2019 09:48:36 018 Diabetic Foot Exam (Monofilament) completed Nir Hamilton [facility] 08/06/2018 09:37:59 017 Knee arthroscopy/surger y completed Fabiana Sutton MA [facility] 07/28/2017 08:31:32 014 Breast reduction completed Fabiana Sutton MA [facility] 07/28/2017 08:32:42 012 Date of Last Colonoscopy completed María Alexander [facility] 08/11/2017 09:46:52 012 Colonoscopy completed Maríamartín Martina [facility] 08/09/2017 15:00:33 Rika arthrs srg rpr slap les completed Fabiana Sutton [place] [facility] 07/28/2017 08:15:46 Cholecystectomy completed Fabiana Sutton MA [facility] 07/28/2017 08:15:52 Hospital Nursing Assistant Surgery completed Fabiana Sutton MA [facility] 12/06/2021 15:01:18 Imaging Results Imaging Date Name Status LastModified by Organiz ation Details LastModified Time 11/16/2022 MAMMO, screening, digital, bilateral completed [facility] (Out[facility] Imaging) [address] [place], [address], 12/06/2022 10:22:26 11/16/2022 MAMMO, screening, bilateral completed [facility] [address], [place], [address], 12/06/2022 10:22:26 11/17/2022 CT, head, w/o contrast completed [email or web address] ([facility] Imaging) [address] [place], [address], 12/06/2022 10:22:26 10/31/2023 XR, hand, 3 or more view [facility] [address] [place], [address], 11/28/2023 14:57:24 10/31/2023 XR, hand, 3 or more view completed [email or web address] [facility] [address] [facility], [place], [address], 11/02/2023 08:57:11 Procedure Notes None recorded. Medical Equipment None Reported. Allergies Allergen ID Allergen Name Allergen Category Reaction Reaction Severity Criticality Documentation Date Start Date Code Code System Note Provider Name and Address Organization Details Recorded Time 63240 lisinopri l medicatio n cough Not available Not available 07/28/2017 70642 RxNorm Francis Zazueta MD [address], [place], [address], [facility] 7 09:25:25 Medications Name Sig Start Date Stop Date Status Note LastModified by Organization Details LastModified Time losartan 50 mg tablet TAKE 1 TABLET BY MOUTH EVERY DAY 01/04 completed Not Available Not Available Not Available amoxicillin 500 mg capsule 08/06 completed Not Available Not Available Not Available atorvastati n 40 mg tablet TAKE 1 TABLET BY MOUTH EVERY DAY 01/04 completed Not Available Not Available Not Available metformin 500 mg tablet Take 1 tablet every day by oral route in the morning. 08/06 completed Not Available Not Available Not Available neomycin-po lymyxin-hyd rocort 3.5 mg/mL-10,00 0 unit/mL-1 % ear solution 08/06 completed Not Available Not Available Not Available acetaminoph en 325 mg tablet TAKE 2 TABLETS BY MOUTH EVERY 4 HOURS 12/06 completed Not Available Not Available Not Available prednisone 10 mg tablet 01/04 completed Not Available Not Available Not Available clindamycin HCl 300 mg capsule TAKE 1 CAPSULE BY MOUTH THREE TIMES A DAY 10/20 completed Not Available Not Available Not Available sucralfate 100 mg/mL oral suspension 01/04 completed Not Available Not Available Not Available prednisone 20 mg tablet TAKE 2 TABLETS BY MOUTH DAILY FOR 5 DAYS active Not Available Not Available No t Available sulfamethox azole 800 mg-trimetho prim 160 mg tablet 08/06 completed Not Available Not Available Not Available aspirin 81 mg tablet,ottoniel yed release Take 1 tablet every day by oral route. 01/04 completed Not Available Not Available Not Available oxycodone-a cetaminophe n 5 mg-325 mg tablet 06/12 completed Not Available Not Available Not Available hydrocortis one 2.5 % topical cream with perineal applicator APPLY RECTALLY ONCE TO TWICE PER DAY FOR 10 DAYS NEEDED FOR PAIN active Not Available Not Available No t Available prednisolon e acetate 1 % eye drops,suspe nsion 06/12 completed Not Available Not Available Not Available pantoprazol e 40 mg tablet,ottoniel yed release Take 1 tablet every day by oral route for 90 days. 09/27 completed Not Available Not Available Not Available erythromyci n 5 mg/gram (0.5 %) eye ointment 01/04 completed Not Available Not Available Not Available levothyroxi ne 125 mcg tablet TAKE 1 TABLET BY MOUTH EVERY DAY 11/23 completed Not Available Not Available Not Available polymyxin B sulfate 10,000 unit-trimet hoprim 1 mg/mL eye drops APPLY 1 DROP 4 TIMES A DAY TO AFFECTED EYES FOR 7 DAYS 10/20 completed Not Available Not Available Not Available losartan 25 mg tablet Take 1 tablet every day by oral route for 90 days. 07/28 completed Not Available Not Available Not Available hydrochloro thiazide 12.5 mg capsule 01/04 completed Not Available Not Available Not Available docusate sodium 100 mg capsule Take 1 capsule every day by oral route. 10/20 completed Not Available Not Available Not Available clindamycin 2 % vaginal cream INSERT 1 APPLICATO RFUL VAGINALLY EVERY DAY AT BEDTIME FOR 7 DAYS 12/06 completed Not Available Not Available Not Available hydroxyzine HCl 25 mg tablet 01/04 completed Not Available Not Available Not Available mupirocin 2 % topical ointment APPLY TO AFFECTED AREA 3 TIMES A DAY FOR 7 DAYS 12/06 completed Not Available Not Available Not Available gabapentin 100 mg capsule TAKE 1 CAPSULE 3 TIMES A DAY BY ORAL ROUTE NEEDED FOR 9 DAYS. 04/10 completed Not Available Not Available Not Available lisinopril 10 mg-hydrochl orothiazide 12.5 mg tablet 06/12 completed Not Available Not Available Not Available methylpredn isolone 4 mg tablets in a dose pack 07/28 completed Not Available Not Available Not Available ondansetron 4 mg disintegrat ing tablet Place 1 tablet as needed by oral route as directed for 9 days. 09/27 completed Not Available Not Available Not Available fluticasone propionate 50 mcg/actuati on nasal spray,suspe nsion 06/12 completed Not Available Not Available Not Available metformin ER 500 mg tablet,exte nded release 24 hr 01/04 completed Not Available Not Available Not Available doxycycline hyclate 100 mg tablet TAKE 1 TABLET BY MOUTH TWICE A DAY FOR 10 DAYS *LIMIT SUN EXPOSURE WHILE TAKING* active Not Available Not Available No t Available naproxen 500 mg tablet 06/12 completed Not Available Not Available Not Available levothyroxi ne 112 mcg tablet TAKE 1 TABLET BY MOUTH EVERY DAY active Not Available Not Available No t Available amoxicillin 875 mg-potassiu m clavulanate 125 mg tablet TAKE 1 TABLET BY MOUTH TWICE A DAY FOR 7 DAYS 12/06 completed Not Available Not Available Not Available Vitamin B-12 1,000 mcg tablet Take 1 tablet every day by oral route. 01/04 completed Not Available Not Available Not Available oxycodone 5 mg tablet TAKE 1 TABLET BY MOUTH EVERY 6 HOURS NEEDED FOR PAIN 10/23 completed Not Available Not Available Not Available Laxative (bisacodyl) 5 mg tablet,ottoniel yed release TAKE 4 TABS BY MOUTH AT NOON THE DAY BEFORE YOUR COLONOSCO PY active Not Available Not Available No t Available Vitamin D3 25 mcg (1,000 unit) capsule Take 3 capsules every day by oral route. 07/28 completed Not Available Not Available Not Available rosuvastati n 10 mg tablet TAKE 1 TABLET BY MOUTH EVERY DAY IN THE EVENING FOR 90 DAYS 2023 active Not Available Not Available Not Avai lable Multivitami n 50 Plus tablet Take 1 tablet every day by oral route. active Not Available Not Available No t Available metformin ER 500 mg 24 hr tablet,exte nded release (gastric retention) Take 1 tablet every day by oral route for 90 days. 01/04 completed Not Available Not Available Not Available fluocinolon e acetonide oil 0.01 % ear drops 06/12 completed Not Available Not Available Not Available hydrochloro thiazide 12.5 mg tablet 06/12 completed Not Available Not Available Not Available GaviLyte-G 236 gram-22.74 gram-6.74 gram-5.86 gram oral solution 01/04 completed Not Available Not Available Not Available Gavilax 17 gram/dose oral powder DISSOLVE 238 GRAMS IN LIQUID AND TAKE BY MOUTH ONCE DIRECTED BY GASTROENT EROLOGY DEPARTMEN T active Not Available Not Available No t Available Vitamin D3 50 mcg (2,000 unit) capsule Take 2 capsules every day by oral route. 01/04 completed Not Available Not Available Not Available turmeric root extract 500 mg capsule Take 2 capsules every day by oral route. 07/28 completed Not Available Not Available Not Available OneTouch Verio test strips Take 1 strip 3 times a day by miscell. route for 30 days. 09/27 completed Not Available Not Available Not Available Calcium 600-D3 Plus (mag-zinc) 600 mg calcium-20 mcg-50 mg tablet Take 1 tablet every day by oral route. active Not Available Not Available No t Available Fish Oil 1,000 mg (120 mg-180 mg) capsule Take 1 capsule every day by oral route. 01/04 completed Not Available Not Available Not Available Flucelvax Quad (PF) 60 mcg (15 mcg x 4)/0.5 mL IM syringe PHARMACY ADMINISTE RED 09/27 completed Not Available Not Available Not Available Zepbound 2.5 mg/0.5 mL subcutaneou s pen injector active Not Available Not Available Not Available Vitals Date Recorded Body height Body mass index (BMI) Body weight Oxygen saturation Oxygen saturation in Arterial blood by Pulse oximetry Heart rate Body temperature Systolic blood pressure Diastolic blood pressure Provider Name and Address Organization Details Last Updated DateTime 3 162.56 cm 34.1 kg/m2 42317.0 9 g 98 % 98 % 79 /min 97.9 [degF] 129 mm[Hg] 79 mm[Hg] Corinne Brownlee MA [facility] 3 15:29:49 Date Recorded Body height Body mass index (BMI) Body weight Oxygen saturation Oxygen saturation in Arterial blood by Pulse oximetry Heart rate Body temperature Systolic blood pressure Diastolic blood pressure Provider Name and Address Organization Details Last Updated DateTime 3 162.56 cm 33.7 kg/m2 80505.9 g 98 % 98 % 73 /min 98 [degF] 113 mm[Hg] 70 mm[Hg] Corinne Brownlee MA [facility] 3 10:02:53 Date Recorded Body height Provider Name an d Address Organization Details Last Updated DateTime 04/10/2023 162.56 cm Fabiana Sutton MA [facility] 04/10/2023 11:40:48 Date Recorded Body height Body mass index (BMI) Body weight Heart rate Oxygen saturation Oxygen saturation in Arterial blood by Pulse oximetry Body temperature Systolic blood pressure Diastolic blood pressure Provider Name and Address Organization Details Last Updated DateTime 4 162.56 cm 29.7 kg/m2 77740.4 8 g 78 /min 98 % 98 % 98.6 [degF] 139 mm[Hg] 73 mm[Hg] Xochilt bartholomew [place] [facility] 4 11:16:35 Date Recorded Systolic blood pressure Diastolic blood pressure Provider Name and Address Organization Details Last Updated DateTime 10/23/2023 122 mm[Hg] 78 mm[Hg] Sai Cobian MD [address], [address], [facility] 10/23/2023 11:56:23 Date Recorded Body height Body mass index (BMI) Body weight Oxygen saturation Oxygen saturation in Arterial blood by Pulse oximetry Heart rate Body temperature Systolic blood pressure Diastolic blood pressure Provider Name and Address Organization Details Last Updated DateTime 4 162.56 cm 30.8 kg/m2 82250.4 3 g 98 % 98 % 78 /min 97.9 [degF] 115 mm[Hg] 71 mm[Hg] Corinne Brownlee MA [facility] 4 11:03:57 Social History Question Answer Notes LastModified by Organizat ion Details LastModified Time Tobacco Smoking Status [facility] 07/28/2017 08:14:53 Do You Have An Advance Directive? Yes HCP At Home; Will Bring Copy Information not available 12/06/2021 What Is Your Level Of Alcohol Consumption? None Information not available 12/06/2021 Is Blood Transfusion Acceptable In An Emergency? Yes Information not available 07/28/2017 What Is Your Level Of Caffeine Consumption? Occasional Diet Cola Information not available 07/28/2017 How Much Tobacco Do You Chew? None Information not available 07/28/2017 Are You Currently Employed? Yes [employer] Approx 15 Hours Per Week Information not available 07/28/2017 What Type Of Diet Are You Following? REGULAR Information not available 07/28/2017 Which Illicit Or Recreational Drugs Have You Used? None Information not available 07/28/2017 Do You Or Have You Ever Used E-cigarettes Or Vape? 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 Yes Information not available 07/28/2017 How Often Do You Need To Have Someone Help You When You Read Instructions, Pamphlets, Or Other Written Material From Your Doctor Or Pharmacy? Never Information not available 07/28/2017 Have You Served In The ? Yes [employer] Information not available 07/28/2017 Have You Or Anyone In Your Household Had Any Of The Following Symptoms In The Last 14 Days: Sore Throat, Cough, Chills, Body Aches For Unknown Reasons, Shortness Of Breath For Unknown Reasons, Loss Of Smell, Loss Of Taste, Fever At Or Greater Than 100 Degrees Fahrenheit? No Information not available 09/27/2020 Are You Or Anyone In Your Household A Health Care Provider Or Emergency Responder? No Information not available 09/27/2020 To The Best Of Your Knowledge Have You Been In Close Proximity To Any Individual Who Tested Positive For COVID-19? No Information not available 09/27/2020 Have You Recently Traveled To A COVID-19 High Risk Area Or Gathering In The Last 10 Days? No [email or web address] Information not available 06/15/2021 What Was The Date Of Your Most Recent Tobacco Screening? 10/23/2023 [email or web address] Information not available 10/23/2023 How Many Children Do You Have? 0 Information not available 12/06/2021 Do You Use Your Seat Belt Or Car Seat Routinely? Yes Information not available 12/06/2021 Are You Sexually Active? No Information not available 12/06/2021 Do You Have Smoke And Carbon Monoxide Detectors In Your Home? Yes Information not available 12/06/2021 At What Age Did You Start Smoking Tobacco? 0 Information not available 07/28/2017 Are You Passively Exposed To Smoke? No Information not available 07/28/2017 Do You Or Have You Ever Used Smokeless Tobacco? Never Used Smokeless Tobacco [email or web address] Information not available 04/28/2019 How Much Tobacco Do You Smoke? No Information not available 07/28/2017 Do You Use Any Illicit Or Recreational Drugs? No Information not available 04/10/2023 Do You Use Sunscreen Routinely? No Information not available 07/28/2017 How Many Years Have You Smoked Tobacco? 0 Information not available 07/28/2017 Do You Or Have You Ever Used Any Other Forms Of Tobacco Or Nicotine? No Information not available 04/10/2023 Sex: Unknown Functional Status Question Answer Note LastModified by Organizat ion Details LastModified Time Are you able to walk? YESWOREST Information not available 12/06/2021 Are you able to care for yourself? Yes Information not available 07/28/2017 What is your exercise level? Occasional gym Information not available 09/27/2020 Mental Status None recorded. Family History Relationship Description Onset Age of this Age Resolved Age Notes LastModified by Organization Details LastModified Time Mother Asthma [email or web address] s Not available 12/06/2021 15:01:17 Mother Arthritis [email or web address] s Not available 07/28/2017 08:12:45 Mother Hypothyroidi sm [email or web address] s Not available 12/06/2021 15:01:17 Mother Disorder of thyroid gland ckokar Not available 2021 15:47:02 Father Natural [email or web address] s Not available 12/06/2021 15:01:17 Sister Hypothyroidi sm bsolivanmatto s Not available 12/06/2021 15:01:17 Sister Carcinoma in situ of thyroid gland [email or web address] s Not available 12/06/2021 15:01:17 Sister Disorder of thyroid gland ckokar Not available 2021 15:47:07 Medical History Condition Response Obesity Y Arthritis Y Constipation Y Chicken Pox Y Gynecological History Statement/Question Response Date of Last Pap Smear 11/08/2021 Date of Last Colonoscopy 11/27/2011 Most Recent Mammogram 11/16/2022 Obstetrics History GPAL:G 0 P 0 0 0 0 Immunizations Vaccine Type Date Status Note Provider Nam e and Address Organization Details Recorded Time Tdap [address] [facility] 12/06/2021 15:06:25 pneumococcal, unspecified formulation [address] [facility] 07/12/2020 09:21:49 Influenza, split virus, quadrivalent, preservative [address] [facility] 07/12/2020 09:21:48 Influenza, split virus, quadrivalent, preservative 9 completed HANDY Martinez, [facility] 12/06/2022 09:54:43 Influenza, split virus, quadrivalent, preservative 9 completed HANDY Martinez, [facility] 12/06/2022 09:54:43 Influenza, recombinant, quadrivalent, PF [address] [facility] 07/12/2020 09:21:48 Influenza, MDCK, quadrivalent, PF [address] [facility] 12/06/2021 15:06:25 COVID-19, mRNA, LNP-S, PF, 30 mcg/0.3 mL dose 1 completed HANDY Martinez, [facility] 06/15/2021 13:59:22 COVID-19, mRNA, LNP-S, PF, 30 mcg/0.3 mL dose 1 completed HANDY Martinez, [facility] 06/15/2021 13:59:49 Influenza, split virus, quadrivalent, PF 1 completed HANDY White, [facility] 12/06/2021 15:06:25 Tdap 1 completed HANDY White, [facility] 12/06/2021 15:06:25 COVID-19, mRNA, LNP-S, PF, 30 mcg/0.3 mL dose 1 completed HANDY White, [facility] 12/06/2021 15:06:25 pneumococcal polysaccharide PPV23 9 completed HANDY White, [facility] 12/06/2021 15:06:25 Influenza, MDCK, quadrivalent, PF 2 completed HANDY Martinez, [facility] 12/06/2022 09:54:43 zoster recombinant 2 completed HANDY Martinez, [facility] 12/06/2022 09:54:43 zoster recombinant 2 completed HANDY Martinez, [facility] 12/06/2022 09:54:43 COVID-19, mRNA, LNP-S, bivalent, PF, 50 mcg/0.5 mL or 25mcg/0.25 mL dose 2 completed HANDY Martinez, [facility] 12/06/2022 09:54:43 Influenza, split virus, quadrivalent, preservative [address] [facility] 01/22/2024 10:57:58 Pneumococcal conjugate PCV20, polysaccharide [id number] conjugate, adjuvant, PF 4 completed HANDY Martinez, [facility] 01/22/2024 10:57:59 RSV, bivalent, protein subunit RSVpreF, diluent reconstituted, 0.5 mL, PF [address] [facility] 01/22/2024 10:57:59 COVID-19, mRNA, LNP-S, PF, gabe-sucrose, 30 mcg/0.3 mL [address] [facility] 01/22/2024 10:57:59 Influenza, split virus, quadrivalent, PF [address] [facility] 01/22/2024 10:57:59 Influenza, split virus, quadrivalent, PF 7 completed Not Available [facility] 10/11/2019 02:22:13 pneumococcal polysaccharide PPV23 8 completed Not Available [facility] 10/11/2019 02:21:28 Tdap 1 completed Francis Zazueta MD [address], [address], [facility] 09/27/2020 12:10:59 Past Encounters Encounter ID Performer Location Encounter Start Date Encounter Closed Date Diagnosis/Indication Diagnosis SNOMED-CT Code Diagnosis ICD10 Code Diagnosis Note [id number] Francis Zazueta MD Main Office [address] [address] 06/12/2017 15:23:23 06/12/2017 16:34:26 Rib pain 178547329 R07.81 ? d/t rib strain from sneezing vs. other -- doubt hairline fx or pna but will check xrays r/o other etiology 45 minute office visit with greater than 50% of the visit face-to-fa ce with the patient and/or family providing counseling and/or coordinati on of care. Dyspnea 568459019 R06.00 c deep breath [id number] Francis Zazueta MD Main Office [address] [address] [place] [address] 07/28/2017 08:01:14 07/28/2017 09:29:56 Adult health examination 711475917 Z00.00 Obstructiv e sleep apnea syndrome 16524229 G47.33 Adherent to CPAP. Needs infl uenza immunization 837549201 Z23 Body mass index 40+ - severely obese 194426289 E66.01 Z68.41 Essential hypertension 99998112 I10 Menopause present 865347 006 N95.1 Hyperlipidemia 28904662 E78.5 Fatigue 28206514 R53.83 Hyperglycemia 09092643 R 73.9 Osteoarthr itis of knee 053568984 M17.11 [id number] Francis Zazueta MD Main Office [address] [address] [place] [place] [address] 09/28/2017 12:40:34 09/28/2017 14:23:14 Uncontrolled type 2 diabetes mellitus 509915356 E11.65 Total time spent teaching and coordinati ng diabetic care 45 minutes. Basic physiology of Type II Diabetes Mellitus was reviewed. Glucose records were reviewed. Pt. was instructed on use of new glucose meter and advised to monitor glucose 3 times per day ; before each main meal. Goal for fasting glucose is 80-130 and 1-2 hrs after the meal under 180. Pt. was instructed on 15 00 del ADA diet and given 7 day sample menus to use at home. Pt. was advised to start exercise activity by walking 30 min at least 3 times weekly and increase weekly or by weekly to 4-6 day per week. If unable to walk , pt. should use other exercise modalities /equipment that is stationary at home or in the gym for that amount of time weekly or water exercises. Start Metfromin ER 500 mg 2 po qd with supper. POssible side effects were discussed. F/u with glucose log in 6 weeks. Body mass index 30+ - obesity 157547416 E66.01 Z68.41 Pure hypercholesterolemia 642063630 E78.00 [id number] Francis Zazueta MD Main Office [address] [address] [place] [address] 11/09/2017 15:10:15 11/09/2017 15:53:40 Essential hypertension 66554671 I10 STable on Losartan 50 mg. Continue low sodium diet , weight loss and medic. Repeat BMP. Type 2 ayaka betes mellitus without complication 028466628 E11.9 STable control at this pont on Metfromin ER 500 mg 2 po qd. Continue testing glucose once per day and return in 4 m. Body mass index 30+ - obesity 212855775 E66.01 Z68.41 [id number] Francis Zazueta MD Main Office [address] [address] [place] [address] 04/05/2018 09:37:15 04/05/2018 09:47:22 Type 2 diabetes mellitus without complication 289548701 E11.9 STable control at this pont on Metfromin ER 500 mg . Will lower to 1 po qd and repeat BMP. Continue testing glucose daily. Continue weight loss. F/u in 4 months. Body mass index 30+ - obesity 072257093 E66.01 Z68.38 [id number] Kevan Snyder MD Main Office [address] [address] [place] [address] 08/06/2018 08:51:59 08/06/2018 09:56:26 Needs influenza immunization 083215435 Z23 Type 2 ayaka betes mellitus without complication 250542298 E11.9 STable control at this pont on metformin ER 500 mg . Will lower to 1 po qd and repeat BMP. Continue testing glucose daily. Continue weight loss. F/u in 4 months. Body mass index 30+ - obesity 483399604 Z68.37 Essential hypertension 35783658 I10 STable on Losartan 50 mg. Continue low sodium diet , weight loss and medic. Repeat BMP. [id number] Rin sorensen Main Office [address] [address] [place] [address] 08/07/2018 09:43:46 08/07/2018 10:54:41 Administration of pneumococcal vaccine 14865336 Z23 [id number] Veda Solis Main Office [address] [address] [place] [address] 12/25/2018 10:18:55 12/25/2018 10:53:11 Type 2 diabetes mellitus without complication 206255018 E11.9 Stable control at this pont on metformin ER 500 mg . Continue daily testing and low carb diet. Repeat microalbum in and obtain last diabetic eye exam. F/u 6 m. Body mass index 30+ - obesity 851738121 Z68.38 Increased frequency of urination 185269412 R35.0 Obesity 495777024 E66.9 [id number] Francis Zazueta MD Main Office [address] [facility] [address] [facility] [place] [address] 04/28/2019 09:39:14 04/28/2019 10:43:20 Screening for malignant neoplasm of cervix 164891544 Z12.4 Essential hypertension 04896850 I10 Adult heal th examination 674061203 Z00.00 Type 2 ayaka betes mellitus without complication 616028834 E11.9 Screening for malignant neoplasm of breast 855086421 Z12.39 Body mass index 30+ - obesity 213992788 E66.01 Z68.35 Skin lesion 20729723 L98 .9 Foot callus 638960675 L8 4 Obstructiv e sleep apnea syndrome 80634505 G47.33 No longer adherent to CPAP. RDI 29 in 2016 [id number] Meghan Briscoe PA-C Main Office [address] [facility] [address] [facility] [place] [address] 08/15/2019 15:43:42 08/15/2019 16:50:09 Type 2 diabetes mellitus without complication 963026521 E11.9 Stable control at this pont on metformin ER 500 mg . Continue daily testing and low carb diet. Repeat microalbum in and obtain last diabetic eye exam. F/u 3-4 m. Body mass index 30+ - obesity 285482122 E66.01 Z68.36 Pt. is having gastric sleeve in August/ anuary [id number] Meghan Briscoe PA-C Main Office [address] [facility] [address] [place] [address] 01/05/2020 13:13:08 01/05/2020 16:21:35 Type 2 diabetes mellitus without complication 351556509 E11.9 Stable control at this pont with no meds. Continue occasional monitoring and retest A1c in April with physical. History of bariatric surgical procedure 688319786 Z98.84 doing exceptiona lly well after losing 54 lbs or so to date. Continue under care of bariatric surgery at [facility]. [id number] Veda Solis Main Office [address] [facility] [address] [place] [address] 09/27/2020 10:47:53 09/27/2020 13:08:59 Adult health examination 023731753 Z00.00 Hypertensive disorder 38 333330 I10 Type 2 ayaka betes mellitus without complication 680886917 E11.9 Resolved after gastric sleeve Administra tion of viral vaccine 97635276 Z23 Plantar fa sciitis of right foot 1080024332 7047031 M72.2 Obstructiv e sleep apnea syndrome 70498728 G47.33 No longer adherent to CPAP. RDI 29 in 2017. Had signficant weight loss after bariatric surgery. [id number] Michaela Russo Main Office [address] [facility] [address] [place] [address] 06/15/2021 13:36:38 06/15/2021 15:12:23 Increased frequency of urination 090317344 R35.0 check UC Hyperglycemia 54814538 R 73.9 pt ate large meal before appt, hgba1c normal, recheck in 3 mos Localized swelling, mass and lump, neck 717356826 R22.1 check US of neck, labs today. Call or ED if any trouble swallowing or swelling worse. May need CT of neck if US does not delineate the cause of swelling [id number] Veda Solis Main Office [address] [facility] [address] [place] [address] 12/06/2021 14:34:03 12/06/2021 16:21:08 Adult health examination 659544083 Z00.00 Patient was counseled on healthy diet, exercise and nutrition due to Body mass index is 31.9 kg/m? ? ?. Last Colonoscop y:Date: 11/27/11Resu lt: wnlPlan: repeat 10yrs per GI, order placed Last Mammogram: Date: 11/14/21Res ult: Birad-1Pla n: repeat next year Last Pap smearDate: 12/11/14Res ult: neg for CRISTOPHER, TZ present HPV negPlan: Per usptf repeat 5yrs, due, notes just had done advised to send records. Bone density scanDate:R esult:Plan : not due Vaccines:T dAP: 1/4/21Zost er: script providedPC V13: not orcDUPA30: 08/07/18In fluenza: 05/31/21Covi d: 12/16/20, 01/07/21, 09/10/21 Routine labs today Immunizati on status reviewed. Will screen based on risk factors. Regular dental and ophtho care advised as well as seat belt and sunscreen use. Distracted driving discussed. Medication reconciled . Fatigue 01158465 R53.83 Hyperlipidemia 86050101 E78.5 Type 2 ayaka betes mellitus without complication 200580719 E11.9 Stable off meds after bariatricH BA1C orderedOph thalmology exam up to dateEndocr inologyLip id profile done/ labs orderedCou nselled about regular physical activityCo unselled on dietFeet examined todayPPSV 23 up to date. Obstructiv e sleep apnea syndrome 65736690 G47.33 discussed CPAP useDoes not want to use presently Carcinoma of thyroid 448 169086 C73 follow endo plan to get HINOJOSA Varicella vaccination 68 014353 Z23 Screening for malignant neoplasm of colon 657161304 Z12.11 Body mass index 30+ - obesity 989100822 E66.9 Z68.31 - Diet and exercise discussed- Patient made aware of risks of obesity- Encouraged to loose weight.- Avoid starchy and fatty food- Encouraged use of green vegetables and fruits- Following weight center Lesion of ligament of wrist and/or hand 402446042 M24.242 Xerosis du e to atopic dermatitis 914746944 L85.3 emolnt use advised, avoid hot showers Essential hypertension 12496909 I10 BP in JNC 8 range has not been on med could be due to weight notes BP at home below 130/90will have keep a long and return.Low sodium diet discussedC ounseled on diet/exerc iseAdvised to keep BP daily BP log and technique counseled. Red flags of HTN emergency discussed and when to go to ED.Will have return in 2 mo to check bp [id number] Kathleen Dyer Main Office [address] [facility] [address] [facility] [place] [address] 10/20/2022 15:17:12 10/20/2022 16:58:26 Carcinoma of thyroid 936301221 C73 Pt had this treated with thyroidect mee Secondary hypothyroidism 34000176 E03.8 check labs Headache 15457774 R51.9 New onset left post head pain, rule out mass [id number] Michaela Haneyjulia Main Office [address] [facility] [address] [place] [address] 12/06/2022 09:39:57 12/06/2022 10:48:14 Hernia of anterior abdominal wall 969339781 K43.9 Pt to see surgeon for evaluation , she would like this repaired. Headache 11635773 R51.9 ? neuralgia, CT without acute findings or mass, to see neuro for evaluation , referral is in , call or ED if any acute symptoms [id number] Sai Cobian MD Main Office [address] [facility] [address] [place] [address] 04/10/2023 11:38:46 04/10/2023 13:13:05 Type 2 diabetes mellitus without complication 687636407 E11.9 Stable off meds after bariatric. Will repeat a1c at , if bio life requires more updated we can put labs sooner. Hyperlipidemia 60905930 E78.5 stable off meds. Administra tive reason for encounter 319385197 Z02.9 Bio life form completed time spent 10min to complete form. [id number] Sai Cobian MD Main Office [address] [facility] [address] [facility] [place] [address] 10/23/2023 10:43:02 10/23/2023 11:59:30 Adult health examination 783150255 Z00.00 Patient was counseled on healthy diet, exercise and nutrition due to Body mass index is 29.7 kg/m? ? ?. Last Colonoscop y:Date: 11/27/11Resu lt: wnlPlan: repeat 10 yrs per GI, order placed Last Mammogram: Date: 11/16/22Res ult: Birad-1Pla n: Referral placed by acoustic warfare analyst. Last Pap smearDate: 11/23/21Resu lt: neg for CRISTOPHER, TZ presentPla n: Per usptf repeat 3 yrs, has apt 01/15 Bone density scanDate:R esult:Plan : not due Vaccines:T dAP: 09/27/20Zost er rec: 06/06/2022 , 08/24/2022 PCV20: script givenPPSV2 3: 08/07/18In fluenza: 06/25/2023 Covid: 12/16/20, 01/07/21, 09/10/21, 07/10/22, 06/25/2023 RSV: Discussed Routine labs today Immunizati on status reviewed. Will screen based on risk factors. Regular dental and ophtho care advised as well as seat belt and sunscreen use. Distracted driving discussed. Medication reconciled . Fatigue 89376492 R53.83 Hyperlipidemia 26519167 E78.5 stable off meds. Type 2 ayaka betes mellitus without complication 226205365 E11.9 Stable off meds after bariatricH BA1C orderedOph thalmology exam up to dateEndocr inologyLip id profile done/ labs orderedCou nselled about regular physical activityCo unselled on dietFeet examined todayPPSV 23 up to date. Essential hypertension 88548673 I10 Carcinoma of thyroid 448 200434 C73 follow endo Body mass index 30+ - obesity 419071815 E66.9 Z68.31 - Diet and exercise discussed- Patient made aware of risks of obesity- Encouraged to loose weight.- Avoid starchy and fatty food- Encouraged use of green vegetables and fruits- Following weight center Screening for malignant neoplasm of colon 332106498 Z12.11 Administra tion of pneumococcal vaccine 24751591 Z23 Administra tion of viral vaccine 24013076 Z29.11 Pain in right hand 79189 15685 02040 M79.641 Will get xr, inflam marker, she is establishe d with hand center advised to follow up.Cont. tylenol. Can consider OT if sx persists.L imit NSAID due to hx of bariatrics . [id number] Sai Cobian MD Main Office [address] [facility] [place], [place] [address] 01/22/2024 10:45:56 01/22/2024 11:35:10 Type 2 diabetes mellitus without complication 762334976 E11.9 Stable off meds after bariatricH BA1C done, well controlled of meds.Hold asa due to gastric sleeve.Oph thalmology exam up to dateFollow s Endocrinol ogyLipid profile done will start stain.Coun selled about regular physical activityCo unselled on dietFeet examined [id number] , up to date. Hyperlipidemia 13855641 E78.5 Will start meds given DM, side affect discussed. She was advised to get LFT in 3mo. Health Concerns Section Related Observation LastModified by Organization Detai ls LastModified Time None Recorded Concern Status LastModified by Organization Details LastModified Time None Recorded Advance Directives Directive Y: HCP at home; will bring c opy Payers Encounter Date Sequence Insurance Name Policy Number Policy Monique Covered Member ID Monique Member ID Guarantor Name 10/20/2022 1 [employer] [facility] (PPO) [id number] 2 Elvira L Pierce [id number] Elvira Pierce 12/06/2022 1 [employer] - [employer] (PPO) [id number] 2 Elvira L Pierce [id number] Elvira Pierce 04/10/2023 1 [employer] ([place]) [id number] 2 Elvira L Pierce [id number] Elvira Pierce 10/23/2023 1 [employer] ([place]) [id number] 2 Elvira L Pierce [id number] Elvira Pierce 01/22/2024 1 [employer] ([place]) [id number] 2 Elvira L Pierce [id number] Elvira Pierce Notes Date Note Type Note Provider Name and Address Organization Details Recorded Time 10/20/2022 text/html Pt would like fu rther evaluation of new onset left sided headache, possibly to be referred to a neurologist She has a constant left side headache, back of head, dull but persistent for 3 weeks, no n/v,no vision change. Feels like something is there just below the surface. No scalp tenderness, no swelling. Recent hx of thyoid cancer and is concerned about remote recurrence. Michaela devine, [facility] [place] 10/27/2022 07:42:33 12/06/2022 text/html Pt had a gastric sleeve done in the past and had umbilical hernia after this surgery but was small. In the past few months she has noted a swelling which she thinks is a hernia on the right side of the abdomen just lateral to the umbilicus. Family has noticed this, kids at school mention she looks on one side.No bowel or bladder changesHeadache is the same, gabapentin helps but she does not like to take it. Michaela Dacostamarv devine, [facility] 12/07/2022 00:16:51 04/10/2023 text/html Visit to discuss forms that she needs for bio life plasma donation. She is otherwise doing well. No acute complaints. She tell me lab work for 01/11/22 should be adequate. Sai Cobian MD [address], [address], [facility] 04/10/2023 13:03:07 10/23/2023 text/html Here for PE. Rev iewed chronic medications and existing medical conditions. Discussed age-appropriate screening guidelines as well as goals for fitness and weight management. 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 Sai Cobian MD [phone] [address], [id number], [facility] 10/23/2023 12:02:26 01/22/2024 text/html Diabetes F/URepo rted bypatient.Context:see ing eye doctor regularly; checking feet regularly;not taking aspirin daily Associated Symptoms:no weight gain; no weight loss; no dizziness; no sweats; no headaches; no confusion; no increased thirst; no increased appetite; no increased urination; no blurred vision; no numbness of feet; no calluses on feet Follow up for DM Sai Cobian MD [address], [id number], [facility] 01/22/2024 12:15:07 OBGyn Episode No OBEpisode recorded.
--- OUTSIDE RECORDS SUMMARY | 2024-11-18 15:39 | XMS_ITS | Data Portability ---
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 available 07/08/2019 Are You Sexually Active? No Information not available 07/08/2019 Smoke Alarm In Home Yes Information not available 07/08/2019 Do You Or Have You Ever Used Smokeless Tobacco? Never Used Smokeless Tobacco Information not available 07/08/2019 How Much Tobacco Do You Smoke? No Information not available 07/08/2019 General Stress Level Low Information not available 07/08/2020 Do You Feel Stressed (tense, Restless, Nervous, Or Anxious, Or Unable To Sleep At Night)? [id number] Information not available 12/26/2022 Do You Use Any Illicit Or Recreational Drugs? No Information not available 11/08/2021 Do You Use Sunscreen Routinely? Yes Information not available 07/08/2019 Have You Recently (within The Last 12 Weeks, Or During A Current ) Traveled To Or Lived In A Zika-affected Area? No Information not available 07/08/2019 Sex: Female Functional Status Question Answer Note LastModified by Organization D etails LastModified Time What is your exercise level? Heavy Information not available 07/08/2020 Mental Status None recorded. Family History Relationship Description Onset Age of this Age Resolved Age Notes LastModified by Organization Details LastModified Time Sister Disorder of thyroid gland cancer [email or web address] Not available 2018 14:52:50 Mother Disorder of thyroid gland [email or web address] Not available 2018 14:52:50 Mother Asthma [email or web address] Not available 07/08/2019 14:53:08 Medical History Condition Response Anesthesia complications N High Blood Pressure N Candidate for MyRisk panel N Autoimmune Condition N Thyroid Problems N Kidney or Bladder Problems N GI Problems N Lung Disease N Depression N Defects or Inherited Disease N History of Ovarian Cancer N Anemia N History of Breast Cancer N SALENA exposure N BRCA testing in past N Osteopenia N Psychiatric Illness N Anxiety Disorder N Diabetes Y Arthritis Y Headaches or Migraines N Infertility N Asthma N History of Cancer N Endometriosis N Hepatitis N Heart Disease N Hypertension N Osteoporosis N Gynecological History Statement/Question Response If Post Menopausal, Age at Menopause 55 Age at Menarche 13 Most Recent Mammogram 11/23/2023 Age at First Child 1 Obstetrics History GPAL:G 0 P 0 0 0 0 Immunizations Vaccine Type Date Status Note Provider Nam e and Address Organization Details Recorded Time Influenza, split virus, quadrivalent, preservative 8 completed Jeana Mec[place]wor null, [place] - [facility], 12/27/2023 15:15:20 Influenza, MDCK, quadrivalent, PF 2 completed Jeana Meczywor null, [place] - [facility], 12/27/2023 15:15:20 Influenza, MDCK, quadrivalent, PF 0 completed Jeana Meczywor null, [place] - [facility], 12/27/2023 15:15:20 Influenza, recombinant, quadrivalent, PF 9 completed Jeana Meczywor null, [place] - [facility], 12/27/2023 15:15:20 zoster recombinant 2 completed Jeana Meczywor null, [place] - [facility], 12/27/2023 15:15:20 zoster recombinant 2 completed Jeana Meczywor null, [place] - [facility], 12/27/2023 15:15:20 COVID-19, mRNA, LNP-S, PF, 30 mcg/0.3 mL dose 1 completed Jeana Meczywor null, [place] - [facility], 12/27/2023 15:15:20 COVID-19, mRNA, LNP-S, PF, 30 mcg/0.3 mL dose 1 completed Jeana Meczywor null, [place] [facility], 12/27/2023 15:15:20 COVID-19, mRNA, LNP-S, PF, 30 mcg/0.3 mL dose 1 completed Jeana Meczywor null, [place] - [facility], 12/27/2023 15:15:20 COVID-19, mRNA, LNP-S, bivalent, PF, 50 mcg/0.5 mL or 25mcg/0.25 mL dose 2 completed Jeana Meczywor null, [place] - [facility], 12/27/2023 15:15:20 pneumococcal polysaccharide PPV23 8 completed Jeana Meczywor null, [place] - [facility], 12/27/2023 15:15:20 pneumococcal polysaccharide PPV23 9 completed Jeana Meczywor null, [place] [facility], 12/27/2023 15:15:20 Tdap 1 completed Jeana Meczywor null, [place] - [facility], 12/27/2023 15:15:20 Tdap 1 completed Jeana Meczywor null, [place] [facility], 12/27/2023 15:15:20 Tdap 1 completed Jeana Meczywor null, [place] [facility], 12/27/2023 15:15:20 pneumococcal, unspecified formulation 6 completed Jeana Meczywor null, [place] [facility], 12/27/2023 15:15:20 Influenza, split virus, quadrivalent, PF 1 completed Jeana Meczywor null, [place] [facility], 12/27/2023 15:15:20 Influenza, split virus, quadrivalent, PF 7 completed Jeana Meczywor null, [place] - [facility], 12/27/2023 15:15:20 Past Encounters Encounter ID Performer Location Encounter Start Date Encounter Closed Date Diagnosis/Indication Diagnosis SNOMED-CT Code Diagnosis ICD10 Code Diagnosis Note [id number] MD IRMA Nelson MD [address] [place] [address],[place] [id number] 07/08/2019 14:38:18 07/08/2019 15:45:57 Specialized medical examination 82291227 Z01.419 Screening for malignant neoplasm of rectum 423916653 Z12.12 Screening mammography 24 732406 Z12.31 [id number] MD IRMA Nelson MD [address] [place] [address],[place] [id number] 07/08/2020 13:41:40 07/08/2020 14:44:14 Specialized medical examination 29600410 Z01.419 Screening for malignant neoplasm of rectum 078058504 Z12.12 Screening mammography 24 950740 Z12.31 [id number] MD IRMA Nelson MD [address] [place] [address],[place] [id number] 09/26/2021 11:47:03 09/26/2021 13:31:00 Vulvitis 29394345 N76.2 B96.89 [id number] MD IRMA Nelson MD [address] [place] [address],[place] [id number] 11/08/2021 14:43:14 11/08/2021 15:37:21 Specialized medical examination 10847041 Z01.419 Screening for malignant neoplasm of rectum 454728264 Z12.12 Screening mammography 24 228251 Z12.31 [id number] MD IRMA Nelson MD [address] [place] [address],[place] [id number] 12/26/2022 15:08:10 12/26/2022 15:57:23 Specialized medical examination 69027060 Z01.419 Screening for malignant neoplasm of rectum 122168993 Z12.12 Screening mammography 24 017536 Z12.31 [id number] MD IRMA Nelson MD [address] [place] [address],[place] [id number] 12/27/2023 15:04:27 12/27/2023 16:04:15 Specialized medical examination 31163608 Z01.419 Screening for malignant neoplasm of rectum 765027651 Z12.12 Screening mammography 24 900697 Z12.31 Atrophic vaginitis 25844 000 N95.2 Health Concerns Section Related Observation LastModified by Organization Detai ls LastModified Time None Recorded Concern Status LastModified by Organization Details LastModified Time None Recorded Advance Directives Directive N: Payers Encounter Date Sequence Insurance Name Policy Number Policy Monique Covered Member ID Monique Member ID Guarantor Name 07/08/2020 1 [employer] (PP[employer]) [id number] 2 Yair Pierce [id number] Yair Pierce 09/26/2021 1 [employer] [id number] 2 Yair Unruly Stan [id number] Yair Pierce 11/08/2021 1 [employer] (PP[employer]) [id number] 2 Yair Pierce [id number] aYir Pierce 12/26/2022 1 [employer] (PPO) [id number] 2 Yair Tolliver Pierce [id number] Yair Pierce 12/27/2023 1 [employer] (PPO) [id number] 2 Yair Tolliver Stan [id number] Yair Pierce Notes Date Note Type Note Provider Name and Address Organization Details Recorded Time 07/08/2020 text/html She is here for annual exam, has lost 76 pounds this past year after bariatric surgery. She feels well, I'm off all medication! _ note from 2019: She is here for annual exam as a new patient, is going to go for weight los surgery son, the sleeve, and needs to get caught up with her routine care. Her lat pap was a year ago, paps always normal. She had a partner for 10 years, but they broke up 3 years ago and she gained 80 pounds in the three years. She is on metformin for diabetes, her first A1C was in kala 8 range, now in the 5 range. She also has controlled HTN. Menopause age 55. Life issues discussed. She has not been sexually active in 3 years, feels that she will be happier about finding a partner after she loses weight. Irma Johnson MD [address], [place], [id number], [facility], 07/08/2020 14:30:45 09/26/2021 text/html This visit is a phone telehealth visit. The patient consented to the visit by phone.The patient was at home at the time of the call and the provider and patient were the only people on the line.I was at [address], [address], [place], at the time of the call. I just have a strong urine smell and I went had got tested, (at her PCP and also at [facility]) and it wasn't a urine infection. She notices the odor only when she urinated however she feles it is vaginal. She had not been sexually active in a long while, but she has a new partner, apparently he is impotent, but he used a dildo on her at his house, 2 months ago, she noted the onset of the odor a week later. I don't think he cleaned that thing very well before. Note from 06/2020: She is here for annual exam, has lost 76 pounds this past year after bariatric surgery. She feels well, I'm off all medication! Irma Johnson MD [address], [place], [id number], [facility], 09/26/2021 12:11:13 11/08/2021 text/html She is here for annual exam, had total thyroidectomy recently for thyroid cancer, healing now, will get the radio iodine soon. Her molther and her sister both have already had thyroid cancer. She feels well. She notes an odor in her urine, she went to a walk in and they tested it and no infection but it still has a bad smell. She takes A lot of vitamins and supplements, including magnesium, calicum, vitamin C, multivitamin, vitamin d, etc. She had initially lsot weight after weight loss surgery but now has gained back 35 popunds. Retired, single, not sexually active, nulligravid. Menopause age 55. note from 11/13: She is here for annual exam, has lost 76 pounds this past year after bariatric surgery. She feels well, I'm off all medication! Irma Johnson MD [address], [place], [id number], [place] - [facility], 11/08/2021 15:16:57 12/26/2022 text/html She is here for annual, doing well, will be having hernia surgery soon for an incisional hernia in her upper abdomen. Note from 2021: She is here for annual exam, had total thyroidectomy recently for thyroid cancer, healing now, will get the radio iodine soon. Her molther and her sister both have already had thyroid cancer.She feels well.She notes an odor in her urine, she went to a walk in and they tested it and no infection but it still has a bad smell. She takes A lot of vitamins and supplements, including magnesium, calicum, vitamin C, multivitamin, vitamin d, etc.She had initially lsot weight after weight loss surgery but now has gained back 35 popunds.Retired, single, not sexually active, nulligravid. Menopause age 55. Irma Johnson MD [address], [place], [id number], [place] - [facility], 12/26/2022 15:36:57 12/27/2023 text/html She is here for annual, doing well, her incisional hernia surgery went well. note from 2022: She is her for annual, doing well, will be having hernia surgery soon for an incisional hernia in her upper abdomen. Irma Johnson MD [address], [place], [id number], [place] [facility], 12/27/2023 15:38:15 OBGyn Episode No OBEpisode recorded.
== END 2024-11-18 13:49 | disposition home or self-care (01) ==
PROVIDERS: PCP Family Medicine; Visit Provider Physician Assistant Surgical
DX: E66.811 Obesity, class 1 (principal); Z68.33 Body mass index [BMI] 33.0-33.9, adult; Z90.3 Acquired absence of stomach [part of]; Z98.84 Bariatric surgery status
CPT/HCPCS: 99214

== ENCOUNTER → 2024-11-18 12:52 | Outpatient (BNVA) | payer OTHER, SELFPAY | PROVIDERS: PCP Family Medicine; Visit Provider Physician Assistant Surgical ==

== ENCOUNTER 2024-11-20 09:34 | Outpatient (REF) | payer OTHER, SELFPAY ==
[2024-11-20 09:51] LABS: MANUAL DIFF FLAG NO
[2024-11-20 10:22] LABS: Basophils Percent Auto 0.3 % (0-2); Eosinophils Percent Auto 1.2 % (0-4); Hematocrit 42.2 % (37.0-47.0); Hemoglobin 14.2 g/dl (12.0-16.0); Lymphocytes Absolute Auto 1.4 X10*3/uL (1.2-4.9); Lymphocytes Percent Auto 39.9 % (20-40); Mean Corpuscular HGB Conc 33.6 g/dl (31.0-35.0); Mean Corpuscular Hemoglobin 28.5 pg (27.0-33.0); Mean Corpuscular Volume 84.7 fL (80.0-98.0); Mean Platelet Volume 9.3 fL (9.4-12.3); Monocytes Absolute Auto 0.3 X10*3/uL (0.1-1.2); Monocytes Percent Auto 9.7 % (2-11); Neutrophils Absolute Auto 1.7 x10*3/uL (2.0-8.3); Neutrophils Percent Auto 48.9 % (45-73); Platelet Count 191 X10*3/uL (160-400); Red Blood Count 4.98 X10*6/uL (4.20-5.50); Red Cell Distribution Width 12.4 % (11.0-16.0); White Blood Count 3.4 X10*3/uL (4.8-10.8)
[2024-11-20 10:28] LABS: Estimated Average Glucose 111 mg/dL; Hemoglobin A1C 132.4446 umol/L; Hemoglobin A1c % 5.5 % (<6.0)
--- OUTSIDE RECORDS SUMMARY | 2024-11-20 10:47 | XMS_ITS | Data Portability ---
Author Organization [facility], Main Office Address [address] [facility] [address] [place] [address] Care Team Providers Care Review Assistant Name Role Phone OFELIA LUEVANO Director Food Safety [phone] [facility] WEIGH T MANAGEMENT PROGRAM Bariatric Surgeon VISIONWORKS KRIS HERNANDEZ Ton Container Shipper CLAUDIA STERN Cardiovascular And Thorac ic Surgeon SANDY INGRAM Fire Control Technician B CAYETANO CONNER General Surgeon SAI COBIAN Primary Care Provider [facility] Sleep Medicine Assessment Encounter Date Assessment Date Assessment LastModified by Organization Details LastModified Time 04/10/2023 04/10/2023 This service was provided using telemedicine. Patient consented to telephone visit Patient was located in the [facility]. Provider was located in the office. [...] DO Not Attach Compendium, Do Not Delete/merge, [id number] 01/22/2024 12:22:06 aspa rtat e figueroa otra nsfe rase /ala nine figueroa otra nsfe rase , rati o, seru m or reji le (OBS ) 2023 024 MOOSE [facility] (Centralized Electronic Ordering - All Locations), Patient Can Go To The Location Of Their Choice, [id number] 03/25/2024 06:08:15 lipi d yoandye l, seru m 2023 024 MOOSE [facility], [address], [address], [place], [address], 10/25/2023 11:47:48 CBC w/ auto diff 2023 024 MOOSE [facility], [address], [address], [place], [address], 10/25/2023 11:14:36 CMP, seru m or reji le 2023 024 MOOSE [facility], [address], [address], [place], [address], 10/25/2023 11:47:45 rf (rhe umat oid fact or), seru m 2023 024 MOOSE [facility], [address], [address], [place], [address], 10/25/2023 11:47:50 ccp (cyc lic citr ulli brandie d pept radhika) igg, seru m 2023 024 MOOSE [facility], [address], [address], [place], [address], 10/26/2023 21:06:14 ESR (noy claros sedi ment atio n rate ), bloo d 2023 024 MOOSE [facility], [address], [address], [place], [address], 10/25/2023 11:21:03 C-re acti ve prot ein, josy srinivasan tive , seru m or plas ma 2023 024 MOOSE [facility], [address], [address], [place], [address], 10/25/2023 11:47:47 magn esiu m, seru m or plas ma 2023 024 MOOES [facility], [address], [place], [address], 10/25/2023 11:47:49 HbA1 c (hem oglo bin A1c) , bloo d 2023 024 MOOSE [facility], [address], [place], [address], 10/25/2023 11:29:31 micr oalb umin , urin e 2023 024 MOOSE [facility], [address], [address], [place], [address], 10/25/2023 19:01:32 T4, free , seru m 2022 023 MOOSE [facility], [address], [place], [address], 10/21/2022 16:38:19 TSH, seru m or plas ma 2022 023 MOOSE [facility], [address], [place], [address], 10/21/2022 16:57:09 Referral hand surg figueroa refe rral 2023 024 debbie [facility], [address], [place], [address], 04/21/2024 10:09:[address] refe rral - Need s colo n canc er scre enin g 2023 024 MOOSE [facility] , 3rd Fl, [place], [address], 11/23/2023 13:55:28 gene ral surg figueroa refe rral - abdo giana l phan ia, woul d like repa ir, hx slee ve in 2018 023 [email or web address] [facility] General Surgery, [address], [place], [address], 06/06/2023 13:44:12 neur olog ist refe rral - left side d head pain , more supe porschei al, has CT with out acut e find ings , 2022 023 [email or web address] [facility] Neurology, [address] [facility] [address], [place], [address], 12/20/2022 09:59:02 Procedures colo nosc opy scre enin g (PRO C) 2023 024 billie Not available 10/23/2023 12:25:31 Surgeries None lizzeth rded . Imaging MAMM O, scre enin g, bila aly l - Perf orm Diag nost ic Mamm ogra m and Michelle st Ultr asou nd if need ed / Perf orm Ultr asou nd Guid ed Aspi rati on and/ or [place] st Biop sy if kody ante d [address] (Ultrasound), [address] [place], [address], 10/23/2023 11:59:31 XR, hand , 3 or more view 2023 024 MOOSE Not available 10/31/2023 16:02:52 CT, head , w/o cont rast - left post erio r head pain , cons tant for 3 week s, puls atin g . Hx of thyr oid canc erRu le out mass or david dipika 2022 023 hans [facility] Radiology, [address] , [place], [address], 11/28/2022 14:41:14 Medication Orders rosu vast atin 10 mg tabl et 2023 024 [facility][id number], [address] [place], [address], 01/22/2024 11:33:16 Patient TargetsNo targets recorded. Patient Instructions Encounter Date Encounter Id Patient Instructions Last Modified By Organization Details Last Modified Time 10/23/2023 [id number] well visit, wome n 50 to 65: care instructions [email or web address] Not available 10/23/2023 11:48:34 learning about colon cancer [email or web address] Not available 10/23/2023 11:48:34 starting a weigh t loss plan: care instructions [email or web address] Not available 10/23/2023 11:48:33 01/22/2024 [id number] type 2 diabetes: care instructions ckokar Not [...] [facility], Encounter Date: 12/06/2022 Director Food Safety Referral for Screening for malignant neoplasm of [...] rmed by [facility], [address] [place] [address] Not Available [facility] (Centralized Electronic Ordering - [...] DO Not Attach Compendium, Do Not Delete/merge, [id number] 01/21/2024 18:22:09 03/24/20 24 03/24/2024 ALT+A ST AST (SGOT) 24 IU/L 0-40 Not Available [facility] ([facility]) [address] [place], [address], 03/25/2024 06:08:15 03/24/20 24 03/24/2024 ALT+A ST ALT (SGPT) 18 IU/L 0-32 Not Available [facility] ([facility]) [address] [place], [address], 03/25/2024 06:08:15 11/16/19 23 11/16/2022 MAMMO , [...] Lay letter mailed to balwinder evaristo WSN: [id number] Orderi ng Physic melissa: Kody Cobian Dictat ed By: Spike SOUZA, Luke Robles Dictat ed Date/T windy: 4:54 pm Review ed By: Luke Lala MD Signed By: Luke Lala MD Signed Date/T windy: 4:54 pm Transc ribed By: CL Transc riptio n Date/T windy: 4:51 pm Birads : Patien t Class: Outpat ient [facility] (Outpt Imaging) [address], [place], [address], 12/06/2022 10:22:26 11/16/19 23 11/16/2022 MAMMO , scree fred, bilat eral No observ ation record ed. [facility] [address], [place], [address], 12/06/2022 10:22:26 11/19/19 23 11/17/2022 CT, head, [...] mGy*cm . COMPAR CHITO: None. FINDIN GS: Spring Tacker View Findin gs, Lines and Tubes: None. BRAIN and EXTRA- AXIAL SPACES : The 4th ventri radha is midlin e and the insurance follow up representative ior fossa struct ures are grossl y [...] st would have better sensit ivity. WSN: [id number] Orderi ng Physic melissa: Tenisha packer EXECUTIVE STAFF ASSISTANT, Michaela Tolliver Dictat ed By: Bety Mayorga MD Dictat ed Date/T windy: 10:47 a Review ed By: Bety Mayroga MD Signed By: Bety Mayorga MD Signed Date/T windy: 10:47 am Transc ribed By: CL Transc ribed Date/T windy: 10:43 am Patien t Class: Outpat ient [email or web address] (Outpt Imaging) [address] , [place], [address], 12/06/2022 10:22:26 10/31/19 24 10/31/2023 XR, hand, [...] no acute osseou s abnorm ality. WSN: [id number] Orderi ng Physic melissa: Kody Cobian Dictat ed By: Paloma Sutton MD Dictat ed Date/T windy: 3:59 pm Review ed By: Paloma Sutton MD Signed By: Paloma Sutton MD Signed Date/T windy: 3:59 pm Transc ribed By: CSB Transc ribed Date/T windy: 3:58 pm Patien t Class: Outpat ient [email or web address] ([facility] Imaging) [address] [place], [address], 11/28/2023 14:57:24 10/31/19 24 10/31/2023 XR, hand, 3 or more view No observ ation record ed. [email or web address] [facility] [address] [place], [address], 11/02/2023 08:57:11 Result Notes None recorded. Problems Name Problem SNOMED Code Status Onset Date Resolution Date Notes Provider Name and Address Organization Details Recorded Time Obstruct ankita sleep apnea syndrome 44875088 Active 2016 Not Available [facility] 0 17:27:33 [facility] hyperten prema 51531031 Completed 201609/27/2020 Veda devine, [facility] 2 14:59:07 Impaired fasting glycemia 473123918 Completed 201609/28/2017 Meghan Briscoe PA-C [address] [facility] [address], [place], [address] , [facility] 8 13:59:30 Type 2 diabetes mellitus without complica tion 235769485 Active 2017 Not Available [facility] 0 17:27:33 Hyperlip idemia 00735426 Completed 201704/09/2023 Sai Cobian MD [address], [place], [address] , [facility] 3 17:36:39 Obesity 557362957 Active 2018 Not Available [facility] 0 17:27:33 Type 2 diabetes mellitus 56430280 Completed 201801/05/2020 Meghan Briscoe PA-C [address] [facility] [address], [place], [address] , [facility] 0 16:00:17 History of bariatri c surgical procedur e 879775305 Active 2018 Gastric sleeve Francis Zazueta MD [address] [facility] [address], [place], [address] , [facility] 1 12:11:53 Dominant nodule of thyroid 029316200 Active 2020 PT had FNA on the right of 2 nodules, results pending Michaela Russo null, [facility] 1 23:34:33 Carcinom a of thyroid 570604007 Active 2021 Hurthle Cell, minimall y invasive , total thyroide ctomy 09/19/20 21 Michaela Russo us null, [facility] 2 16:50:06 [facility]entia l hyperten prema 17376719 Active 2021 Veda Solis null, [facility] 2 14:59:07 Problem Notes None recorded. Procedures Surgical History Date Name Laterality Status Provider Name and Address Organization Details Recorded Time 024 Diabetic Foot Exam (Monofilament) completed Sai Cobian MD [address] [address], [place], [address], [facility] 01/21/2024 18:21:29 024 Diabetic Foot Exam (Monofilament) completed Sai Cobian MD [address] [address], [place], [address], [facility] 10/23/2023 07:40:32 023 laparoscopic procedure completed Debbie Yap [facility] 06/28/2023 09:31:26 023 Most Recent Mammogram completed Debbie Yap [facility] 11/17/2022 09:16:12 022 Diabetic Foot Exam (Monofilament) completed Sai Cobian MD [address] [facility] [address], [place], [address], [facility] 12/06/2021 08:39:11 022 Mammogram screening completed Lissett Ribeiro [facility] 11/16/2021 10:37:04 022 Date of Last Pap Smear completed Lissett Ribeiro [facility] 01/11/2022 13:40:23 021 total thyroidectomy completed Christine Woo [facility] 10/14/2021 16:03:05 020 Diabetic Foot Exam (Monofilament) completed Latesha Obrien [facility] 01/05/2020 15:18:33 019 Bariatric Surgery completed Francis Zazueta MD [address] [facility] [address], [place], [address], [facility] 09/27/2020 12:01:38 019 Diabetic Foot Exam (Monofilament) completed Js Montoya [facility] 08/15/2019 16:34:29 019 Diabetic Foot Exam (Monofilament) completed Daniella Galaviz MA [facility] 04/28/2019 09:48:36 018 Diabetic Foot Exam (Monofilament) completed Nir Hamilton [facility] 08/06/2018 09:37:59 017 Knee arthroscopy/surger y completed Fabiana Sutton MA [facility] 07/28/2017 08:31:32 014 Breast reduction completed Fabiana Sutton MA [facility] 07/28/2017 08:32:42 012 Date of Last Colonoscopy completed María Alexander [facility] 08/11/2017 09:46:52 012 Colonoscopy completed Maríamartín Martina [facility] 08/09/2017 15:00:33 Rika arthrs srg rpr slap les completed Fabiana Sutton MA [facility] 07/28/2017 08:15:46 Cholecystectomy completed Fabiana Sutton MA [facility] 07/28/2017 08:15:52 Package Sealer Machine Surgery completed Fabiana Sutton MA [facility] 12/06/2021 15:01:18 Imaging Results Imaging Date Name Status LastModified by Organiz ation Details LastModified Time 11/16/2022 MAMMO, screening, digital, bilateral completed [facility] (Outpt Imaging) [address] [place], [address], 12/06/2022 10:22:26 11/16/2022 MAMMO, screening, bilateral completed rustapentus [facility] [address], [place], [address], 12/06/2022 10:22:26 11/17/2022 CT, head, w/o contrast completed [email or web address]) [address] [place], [address], 12/06/2022 10:22:26 10/31/2023 XR, hand, 3 or more view [email or web address] [address] [place], [address], 11/28/2023 14:57:24 10/31/2023 XR, hand, 3 or more view completed [email or web address] [facility] [address] [facility], [place], [address], 11/02/2023 08:57:11 Procedure Notes None recorded. Medical Equipment None Reported. Allergies Allergen ID Allergen Name Allergen Category Reaction Reaction Severity Criticality Documentation Date Start Date Code Code System Note Provider Name and Address Organization Details Recorded Time 73801 lisinopri l medicatio n cough Not available Not available 07/28/2017 95924 RxNorm Francis Zazueta MD [address], [place], [address], [facility] 7 09:25:25 Medications Name Sig Start Date [...] Updated DateTime 3 162.56 cm 34.1 kg/m2 03235.0 9 g 98 % 98 % 79 /min 97.9 [degF] 129 mm[Hg] 79 mm[Hg] Corinne Brownlee MA [facility] 3 15:29:49 Date Recorded Body height Body mass index (BMI) Body weight Oxygen saturation Oxygen saturation in Arterial blood by Pulse oximetry Heart rate Body temperature Systolic blood pressure Diastolic blood pressure Provider Name and Address Organization Details Last Updated DateTime 3 162.56 cm 33.7 kg/m2 93313.9 g 98 % 98 % 73 /min 98 [degF] 113 mm[Hg] 70 mm[Hg] Corinne Brownlee MA [facility] 3 10:02:53 Date Recorded Body height Provider Name an d Address Organization Details Last Updated DateTime 04/10/2023 162.56 cm Fabiana Sutton MA [facility] 04/10/2023 11:40:48 Date Recorded Body height Body mass index (BMI) Body weight Heart rate Oxygen saturation Oxygen saturation in Arterial blood by Pulse oximetry Body temperature Systolic blood pressure Diastolic blood pressure Provider Name and Address Organization Details Last Updated DateTime 4 162.56 cm 29.7 kg/m2 96721.4 8 g 78 /min 98 % 98 % 98.6 [degF] 139 mm[Hg] 73 mm[Hg] Xochilt bartholomew MA [facility] 4 11:16:35 Date Recorded Systolic blood pressure Diastolic blood pressure Provider Name and Address Organization Details Last Updated DateTime 10/23/2023 122 mm[Hg] 78 mm[Hg] Sai Cobian MD [address], [address], [facility] 10/23/2023 11:56:23 Date Recorded Body height Body mass index (BMI) Body weight Oxygen saturation Oxygen saturation in Arterial blood by Pulse oximetry Heart rate Body temperature Systolic blood pressure Diastolic blood pressure Provider Name and Address Organization Details Last Updated DateTime 4 162.56 cm 30.8 kg/m2 94530.4 3 g 98 % 98 % 78 /min 97.9 [degF] 115 mm[Hg] 71 mm[Hg] Corinne Brownlee MA [facility] 4 11:03:57 Social History Question Answer Notes LastModified by Organizat ion Details LastModified Time Tobacco Smoking Status Never Smoker [facility] 07/28/2017 08:14:53 Do You Have [...] available 12/06/2021 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 No [email or web address] Information not available 06/15/2021 What Was The [...] Recorded Time Tdap 1 completed HANDY White [facility] 12/06/2021 15:06:25 pneumococcal, unspecified formulation 6 completed Christine devine [facility] 07/12/2020 09:21:49 Influenza, split virus, quadrivalent, preservative 8 completed Christine devine [facility] 07/12/2020 09:21:48 Influenza, split virus, quadrivalent, preservative 9 completed HANDY [place], [facility] 12/06/2022 09:54:43 Influenza, split virus, quadrivalent, preservative 9 completed HANDY [place], [facility] 12/06/2022 09:54:43 Influenza, recombinant, quadrivalent, PF 9 completed Christine devine [facility] 07/12/2020 09:21:48 Influenza, MDCK, quadrivalent, PF 0 completed HANDY White [facility] 12/06/2021 15:06:25 COVID-19, mRNA, LNP-S, PF, 30 mcg/0.3 mL dose 1 completed HANDY [place], [facility] 06/15/2021 13:59:22 COVID-19, mRNA, LNP-S, PF, 30 mcg/0.3 mL dose 1 completed HANDY [place], [facility] 06/15/2021 13:59:49 Influenza, split virus, quadrivalent, PF 1 completed HANDY White, [facility] 12/06/2021 15:06:25 Tdap 1 completed HANDY White, [facility] 12/06/2021 15:06:25 COVID-19, mRNA, LNP-S, PF, 30 mcg/0.3 mL dose 1 completed HANDY [place], [facility] 12/06/2021 15:06:25 pneumococcal polysaccharide PPV23 9 completed HANDY [place], [facility] 12/06/2021 15:06:25 Influenza, MDCK, quadrivalent, PF 2 completed [place]Y [place], [facility] 12/06/2022 09:54:43 zoster recombinant 2 completed [place]Y [place], [facility] 12/06/2022 09:54:43 zoster recombinant 2 completed HANDY [place], [facility] 12/06/2022 09:54:43 COVID-19, mRNA, LNP-S, bivalent, PF, 50 mcg/0.5 mL or 25mcg/0.25 mL dose 2 completed [place], [facility] 12/06/2022 09:54:43 Influenza, split virus, quadrivalent, preservative 1 completed HANDY Martinez [facility] 01/22/2024 10:57:58 Pneumococcal conjugate PCV20, polysaccharide [id number] conjugate, adjuvant, PF 4 completed HANDY [place], [facility] 01/22/2024 10:57:59 RSV, bivalent, protein subunit RSVpreF, diluent reconstituted, 0.5 mL, PF 4 completed HANDY Martinez [facility] 01/22/2024 10:57:59 COVID-19, mRNA, LNP-S, PF, gabe-sucrose, 30 mcg/0.3 mL 3 completed HANDY Martinez [facility] 01/22/2024 10:57:59 Influenza, split virus, quadrivalent, PF 3 completed HANDY Martinez [facility] 01/22/2024 10:57:59 Influenza, split virus, quadrivalent, PF 7 completed Not Available [facility] 10/11/2019 02:22:13 pneumococcal polysaccharide PPV23 8 completed Not Available [facility] 10/11/2019 02:21:28 Tdap 1 completed Francis Zazueta MD [address], [address], [facility] 09/27/2020 12:10:59 Past Encounters Encounter ID Performer Location Encounter Start Date Encounter Closed Date Diagnosis/Indication Diagnosis SNOMED-CT Code Diagnosis ICD10 Code Diagnosis Note [id number] Francis Zazueta MD Main Office [address] [address] 06/12/2017 15:23:23 06/12/2017 16:34:26 Rib pain 089962850 R07.81 ? d/t rib strain from sneezing vs. other -- doubt hairline fx or pna but will check xrays r/o other etiology 45 minute office visit with greater than 50% of the visit face-to-fa ce with the patient and/or family providing counseling and/or coordinati on of care. Dyspnea 606799656 R06.00 c deep breath [id number] Francis Zazueta MD Main Office [address] [address] [place] [address] 07/28/2017 08:01:14 07/28/2017 09:29:56 Adult health examination 766868368 Z00.00 Obstructiv e sleep apnea syndrome 40158544 G47.33 Adherent to CPAP. Needs infl uenza immunization 038514057 Z23 Body mass index 40+ - severely obese 954297083 E66.01 Z68.41 Essential hypertension 13612091 I10 Menopause present 693307 006 N95.1 Hyperlipidemia 02384562 E78.5 Fatigue 73500675 R53.83 Hyperglycemia 81032708 R 73.9 Osteoarthr itis of knee 886284959 M17.11 [id number] Francis Zazueta MD Main Office [address] [address] [place] [address] 09/28/2017 12:40:34 09/28/2017 14:23:14 Uncontrolled type 2 diabetes mellitus 857722402 E11.65 Total time spent teaching and coordinati [...] weeks. Body mass index 30+ - obesity 764392981 E66.01 Z68.41 Pure hypercholesterolemia 738922417 E78.00 [id number] Francis Zazueta MD Main Office [address] [address] [place] [address] 11/09/2017 15:10:15 11/09/2017 15:53:40 Essential hypertension 80410662 I10 STable on Losartan 50 mg. Continue low sodium diet , weight loss and medic. Repeat BMP. Type 2 ayaka betes mellitus without complication 327269472 E11.9 STable control at this pont on Metfromin ER 500 mg 2 po qd. Continue testing glucose once per day and return in 4 m. Body mass index 30+ - obesity 826959209 E66.01 Z68.41 [id number] Francis Zazueta MD Main Office [address] [address] [place] [address] 04/05/2018 09:37:15 04/05/2018 09:47:22 Type 2 diabetes mellitus without complication 212807036 E11.9 STable control at this pont on Metfromin ER 500 mg . Will lower to 1 po qd and repeat BMP. Continue testing glucose daily. Continue weight loss. F/u in 4 months. Body mass index 30+ - obesity 109205041 E66.01 Z68.38 [id number] Kevan Snyder MD Main Office [address] [address] [place] [address] 08/06/2018 08:51:59 08/06/2018 09:56:26 Needs influenza immunization 417405626 Z23 Type 2 ayaka betes mellitus without complication 641892768 E11.9 STable control at this pont on metformin ER 500 mg . Will lower to 1 po qd and repeat BMP. Continue testing glucose daily. Continue weight loss. F/u in 4 months. Body mass index 30+ - obesity 942462084 Z68.37 Essential hypertension 49296076 I10 STable on Losartan 50 mg. Continue low sodium diet , weight loss and medic. Repeat BMP. [id number] Rin sorensen Main Office [address] [address] [place] [address] 08/07/2018 09:43:46 08/07/2018 10:54:41 Administration of pneumococcal vaccine 67679450 Z23 [id number] Veda Solis Main Office [address] [address] [place] [address] 12/25/2018 10:18:55 12/25/2018 10:53:11 Type 2 diabetes mellitus without complication 488654512 E11.9 Stable control at this pont on metformin ER 500 mg . Continue daily testing and low carb diet. Repeat microalbum in and obtain last diabetic eye exam. F/u 6 m. Body mass index 30+ - obesity 065724153 Z68.38 Increased frequency of urination 080484859 R35.0 Obesity 478466471 E66.9 [id number] Francis Zazueta MD Main Office [address] [facility] [address] [facility] [place] [address] 04/28/2019 09:39:14 04/28/2019 10:43:20 Screening for malignant neoplasm of cervix 540445413 Z12.4 Essential hypertension 35448162 I10 Adult heal th examination 882480767 Z00.00 Type 2 ayaka betes mellitus without complication 314559657 E11.9 Screening for malignant neoplasm of breast 011001266 Z12.39 Body mass index 30+ - obesity 422034384 E66.01 Z68.35 Skin lesion 07863236 L98 .9 Foot callus 833969989 L8 4 Obstructiv e sleep apnea syndrome 67504762 G47.33 No longer adherent to CPAP. RDI 29 in 2016 [id number] Meghan Briscoe PA-C Main Office [address] [facility] [address] [facility] [place] [id number] 08/15/2019 15:43:42 08/15/2019 16:50:09 Type 2 diabetes mellitus without complication 867211761 E11.9 Stable control at this pont on metformin ER 500 mg . Continue daily testing and low carb diet. Repeat microalbum in and obtain last diabetic eye exam. F/u 3-4 m. Body mass index 30+ - obesity 058017046 E66.01 Z68.36 Pt. is having gastric sleeve in August/ anuary [id number] Meghan Briscoe PA-C Main Office [address] [facility] [address] [place] [address] 01/05/2020 13:13:08 01/05/2020 16:21:35 Type 2 diabetes mellitus without complication 330761032 E11.9 Stable control at this pont with no meds. Continue occasional monitoring and retest A1c in April with physical. History of bariatric surgical procedure 530831160 Z98.84 doing exceptiona lly well after losing 54 lbs or so to date. Continue under care of bariatric surgery at [facility]. [id number] Veda Solis Main Office [address] [facility] [address] [place] [address] 09/27/2020 10:47:53 09/27/2020 13:08:59 Adult health examination 568203337 Z00.00 Hypertensive disorder 38 930128 I10 Type 2 ayaka betes mellitus without complication 475128234 E11.9 Resolved after gastric sleeve Administra tion of viral vaccine 27753360 Z23 Plantar fa sciitis of right foot [id number] 2012826 M72.2 Obstructiv e sleep apnea syndrome 74180230 G47.33 No longer adherent to CPAP. RDI 29 in 2017. Had signficant weight loss after bariatric surgery. [id number] Michaela Russo Main Office [address] [facility] [address] [place] [address] 06/15/2021 13:36:38 06/15/2021 15:12:23 Increased frequency of urination 925554923 R35.0 check UC Hyperglycemia 08495090 R 73.9 pt ate large meal before appt, hgba1c normal, recheck in 3 mos Localized swelling, mass and lump, neck 538546858 R22.1 check US of neck, labs today. Call or ED if any trouble swallowing or swelling worse. May need CT of neck if US does not delineate the cause of swelling [id number] Veda Solis Main Office [address] [facility] [address] [place] [address] 12/06/2021 14:34:03 12/06/2021 16:21:08 Adult health examination [id number] Z00.00 Patient was counseled on healthy diet, [...] dAP: 1/4/21Zost er: script providedPC V13: not rddJNIM96: 08/07/18In fluenza: 05/31/21Covi d: 12/16/20, 01/07/21, 09/10/21 Routine labs today Immunizati on status reviewed. Will screen based on risk factors. Regular dental and ophtho care advised as well as seat belt and sunscreen use. Distracted driving discussed. Medication reconciled . Fatigue 63921130 R53.83 Hyperlipidemia 72690696 E78.5 Type 2 ayaka betes mellitus without complication 644947356 E11.9 Stable off meds after bariatricH BA1C orderedOph thalmology exam up to dateEndocr inologyLip id profile done/ labs orderedCou nselled about regular physical activityCo unselled on dietFeet examined todayPPSV 23 up to date. Obstructiv e sleep apnea syndrome 35199904 G47.33 discussed CPAP useDoes not want to use presently Carcinoma of thyroid 448 152307 C73 follow endo plan to get HINOJOSA Varicella vaccination 68 067259 Z23 Screening for malignant neoplasm of colon 386632475 Z12.11 Body mass index 30+ - obesity 004362773 E66.9 Z68.31 - Diet and exercise discussed- Patient made aware of risks of obesity- Encouraged to loose weight.- Avoid starchy and fatty food- Encouraged use of green vegetables and fruits- Following weight center Lesion of ligament of wrist and/or hand 811101450 M24.242 Xerosis du e to atopic dermatitis 512320169 L85.3 emolnt use advised, avoid hot showers Essential hypertension 45151809 I10 BP in JNC 8 range has [...] return in 2 mo to check bp [id number] Kathleen Dyer Main Office [address] 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 Headache 35394300 R51.9 ? neuralgia, CT without acute findings or mass, to see neuro for evaluation , referral is in , call or ED if any acute symptoms [id number] Sai Cobian MD Main Office [address] [facility] [address] [place] [address] 04/10/2023 11:38:46 04/10/2023 13:13:05 Type 2 diabetes mellitus without complication 099663385 E11.9 Stable off meds after bariatric. Will repeat a1c at , if bio life requires more updated we can put labs sooner. Hyperlipidemia 88691424 E78.5 stable off meds. Administra tive reason for encounter 773046139 Z02.9 Bio life form completed time spent 10min to complete form. [id number] Sai Cobian MD Main Office [address] [facility] [address] [facility] [place] [address] 10/23/2023 10:43:02 10/23/2023 11:59:30 Adult health examination 599501646 Z00.00 Patient was counseled on healthy diet, exercise and nutrition due to Body mass index is 29.7 kg/m? ? ?. Last Colonoscop y:Date: 11/27/11Resu lt: wnlPlan: repeat 10 yrs per GI, order placed Last Mammogram: Date: 11/16/22Res ult: Birad-1Pla n: Referral placed by analysis manager. Last Pap smearDate: 11/23/21Resu lt: neg for [...] Distracted driving discussed. Medication reconciled . Fatigue 03965543 R53.83 Hyperlipidemia 19985720 E78.5 stable off meds. Type 2 ayaka betes mellitus without complication 902914686 E11.9 Stable off meds after bariatricH BA1C orderedOph thalmology exam up to dateEndocr inologyLip id profile done/ labs orderedCou nselled about regular physical activityCo unselled on dietFeet examined todayPPSV 23 up to date. Essential hypertension 48133779 I10 Carcinoma of thyroid 448 328440 C73 follow endo Body mass index 30+ - obesity 355628522 E66.9 Z68.31 - Diet and exercise discussed- Patient made aware of risks of obesity- Encouraged to loose weight.- Avoid starchy and fatty food- Encouraged use of green vegetables and fruits- Following weight center Screening for malignant neoplasm of colon 778733099 Z12.11 Administra tion of pneumococcal vaccine 61570562 Z23 Administra tion of viral vaccine 12620821 Z29.11 Pain in right hand 38040 60176 28351 M79.641 Will get xr, inflam marker, she is establishe d with hand center advised to follow up.Cont. tylenol. Can consider OT if sx persists.L imit NSAID due to hx of bariatrics . [id number] Sai Cobian MD Main Office [address] [facility] [place], [place] [address] 01/22/2024 10:45:56 01/22/2024 11:35:10 Type 2 diabetes mellitus without complication 378443218 E11.9 Stable off meds after bariatricH BA1C done, well controlled of meds.Hold asa due to gastric sleeve.Oph thalmology exam up to dateFollow s Endocrinol ogyLipid profile done will start stain.Coun selled about regular physical activityCo unselled on dietFeet examined [id number] , up to date. Hyperlipidemia 16539632 E78.5 Will start meds given DM, side [...] ID Guarantor Name 10/20/2022 1 [employer] [facility] [place] ([facility] [id number] 2 Elvira L Pierce [id number] Elvira Pierce 12/06/2022 1 [employer] [facility] [id number] 2 Elvira L Pierce [id number] Elvira Pierce 04/10/2023 1 [employer] [facility] [id number] 2 Elvira L Pierce [id number] Elvira Pierce 10/23/2023 1 [employer] [facility] [id number] 2 Elvira L Pierce [id number] Elvira Pierce 01/22/2024 1 [employer] [facility] [id number] 2 Elvira L Pierce [id number] Elvira Pierce Notes Date Note Type Note [...] is concerned about remote recurrence. Michaela devine, [facility] 10/27/2022 07:42:33 12/06/2022 text/html Pt had [...] like to take it. Michaela Dacostamarv devine, [facility] 12/07/2022 00:16:51 04/10/2023 text/html Visit to discuss forms that she needs for bio life plasma donation. She is otherwise doing well. No acute complaints. She tell me lab work for 01/11/22 should be adequate. Sai Cobian MD [address], [phone], [facility] 04/10/2023 13:03:07 10/23/2023 text/html Here for PE. Rev iewed chronic medications and existing medical conditions. Discussed age-appropriate screening guidelines as well as goals for fitness and weight management. 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 Sai Cobian MD [address], [address], [facility] 10/23/2023 12:02:26 01/22/2024 text/html Diabetes F/URepo rted bypatient.Context:see ing eye doctor regularly; checking feet regularly;not taking aspirin daily Associated Symptoms:no weight gain; no weight loss; no dizziness; no sweats; no headaches; no confusion; no increased thirst; no increased appetite; no increased urination; no blurred vision; no numbness of feet; no calluses on feet Follow up for DM Sai Cobian MD [address], [address], [facility] 01/22/2024 12:15:07 OBGyn Episode No OBEpisode recorded.
--- OUTSIDE RECORDS SUMMARY | 2024-11-20 10:47 | XMS_ITS | Data Portability ---
Author Organization [place] - [facility],, IRMA JOHNSON MD Address [address] [facility] [address] [place] [address] Care Team Providers Care Machinist General Name Role Phone SAI COBIAN Primary Care Provider Assessment No assessment recorded. Plan of Treatment Reminders Order Date Submit Date Provider Last Modified By Organization Details Last Modified Time Details Appointments None recorded. Lab cytology report, thin prep, smear or scraping, cervical or vaginal 2023 024 MOOSE [facility] (Centralized Electronic Ordering - All Locations), Patient Can Go To The Location Of Their Choice, [id number] 4 16:06:37 hemoglobi n, gastroint estinal, stool 2023 024 [email or web address] 1 In-Office Order, Internal Use Only DO Not Attach Compendium DO Not Attach Compendium, Do Not Delete/merge, [id number] 4 15:36:16 pap test, thinprep, cervical 2022 023 [facility] (Centralized Electronic Ordering - All Locations), Patient Can Go To The Location Of Their Choice, [id number] 3 07:25:58 fecal occult blood, stool 2022 023 [email or web address] 1 In-Office Order, Internal Use Only DO Not Attach Compendium DO Not Attach Compendium, Do Not Delete/merge, [id number] 3 15:36:24 pap test, thinprep, cervical 2021 022 [facility], Cytopathology Service, [address] [place] [address], [address], 2 07:23:48 fecal occult blood, stool 2021 022 [email or web address] 1 In-Office Order, Internal Use Only DO Not Attach Compendium DO Not Attach Compendium, Do Not Delete/merge, [id number] 2 15:14:24 pap test, thinprep, cervical 2019 020 [facility], [address] [place], [address], 0 07:48:28 fecal occult blood, stool 2019 020 [facility] In-Office Order, Internal Use Only DO Not Attach Compendium DO Not Attach Compendium, Do Not Delete/merge, [id number] 0 07:48:28 Referral None recorded. Procedures None recorded. Surgeries None recorded. Imaging MAMMO, screening , digital, bilateral - Breast Aspiratio n and/or Biopsy if needed 2023 024 [email or web address] [facility] Orders, [address], [address], [place], [address], 4 16:04:15 MAMMO, screening , digital, bilateral - Breast Aspiratio n and/or Biopsy if needed 2022 023 MOOSE [facility] Orders, [address], [address], [place], [address], 4 17:23:39 MAMMO, screening , digital, bilateral 2021 022 [facility] Orders, [address], [address], [place], [address], 4 07:34:43 MAMMO, screening , digital, bilateral 2019 020 [facility] (Mammography), [address] [place], [address], 1 07:18:37 Medication Orders metronida zole 0.75 % (37.5 mg/5 gram) vaginal gel 2021 022 DBA_PATCH_ [id number] [id number], [address] [place], [address], 2 10:03:35 Patient TargetsNo targets recorded. Patient Instructions Encounter Date Encounter Id Patient Instructions Last Modified By Organization Details Last Modified Time 07/08/2020 [id number] learning about healthy weight Not available 07/08/2020 [...] the breast. Not available 07/08/2020 14:18:53 09/26/2021 [id number] bacterial vaginosis: care instructions Not available 09/26/2021 11:57:50 This visit is a phone telehealth visit. The patient consented to the visit by phone. The patient was at home at the time of the call and the provider and patient were the only people on the line. I was at [address], [address], [place], [place], at the time of the call. [...] 20 minutes Not available 09/26/2021 12:10:58 11/08/2021 [id number] learning about healthy weight Not available 11/08/2021 [...] the breast. Not available 11/08/2021 15:16:21 12/26/2022 [id number] learning about healthy weight Not available 12/26/2022 [...] discovers any new mass in the breast. [facility] Not available 12/26/2022 15:36:39 12/27/2023 [id number] atrophic vaginit is: care instructions [facility] Not available 12/27/2023 15:37:51 learning about healthy [...] vaginal estradiol and [facility] agrees [email or web address] Not available 12/27/2023 15:37:35 Reason for Referral None Reported. Results Created Date Observation Date Name Description Value Unit Range Abnormal Flag Note LastModifiedBy Organization Detail LastModifiedTime 07/08/2007/08/2020 fecal occul t blood , stool Occult Blood negati ve Not Available In-Office Order Internal Use Only DO Not Attach Compendium DO Not Attach Compendium, Do Not Delete/merge, [id number] 07/08/2020 13:52:44 07/08/2007/08/2020 pap, LB [id number] ThinP rep Pap, Image d: NEGAT ANKITA [...] neg, z12.4 , z01.4 19 Not Available [facility], Cytopathology Service [address] [place], [address], 07/12/2020 15:15:51 11/08/19 22 11/08/2021 PAP1C ASE [id number] ThinP rep Pap, Image d: NEGAT ANKITA [...] Imagi ng Syste m unles s other [facility] d[facility] [place] , [place]( CP) (Case elect mayela rodriguez moisés d 11 23 2021) ADEQU ACY: Satis facto ry . SOURC E: ThinP rep Pap HPV IF ASCUS , Cervi del, Image d CLINI DEL INFOR MATIO N: HPV If Diagn osis of ASCUS . LPS 07/08 neg, Z12.4 , Z01.4 19 Not Available [facility], Cytopathology Service [address] [place], [address], 11/23/2021 16:21:26 11/08/19 22 11/08/2021 fecal occul t blood , stool Occult Blood negati ve Not Available In-Office Order Internal Use Only DO Not Attach Compendium DO Not Attach Compendium, Do Not Delete/merge, [id number] 11/08/2021 14:47:42 12/27/19 23 12/26/2022 [facility] [place] CYTOL OGY results Patie nt Name: YAIR FAUST nt : [birth year] (Age: 62) Lab Acces prema #: [id number] Colle ction Date: 023 Acces prema Date: 023 Sign Out Date: 2022 Tissu e Sourc e: 1: 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, CERVI DEL: Final Diagn osis: [...] with amanuel adhikari or elizabeth cagleed at [facility] ate Refer ence Labor atory depar tment of Cytol ogy, [address] [place] Clini del Histo ry (othe r): Z01.4 19 LPS 12/13 negat ankita Phone #: [phone], On-Ca ll Patho logis t: [id number] Not Available [facility] (Centralized Electronic Ordering - All Locations) Patient Can Go To The Location Of Their Choice, [id number] 01/04/2023 16:53:41 12/27/19 23 12/26/2022 fecal occul t blood , stool Occult Blood negati ve Not Available In-Office Order Internal Use Only DO Not Attach Compendium DO Not Attach Compendium, Do Not Delete/merge, [id number] 12/26/2022 15:21:14 12/27/19 24 01/02/2024 IGP, RFX APTIM A HPV ASCU diagnosis: Commen t UNSAT ISFAC TORY FOR EVALU ATION . THIS SPECI MEN WAS RESCR EENED PART OF OUR QUALI TY CONTR OL PROGR AM. Not Available [facility] ([facility]) [address] [place], [address], 01/02/2024 16:06:37 12/27/19 24 01/02/2024 IGP, RFX APTIM A HPV ASCU specimen adequacy: Becca loera Speci men proce ssed and exami shefali, but unsat isfac tory for evalu ation of epith elial abnor malit y becau se of obscu ring exuda te. Not Available [facility] ([facility]) [address] [place], [address], 01/02/2024 16:06:37 12/27/19 24 01/02/2024 IGP, RFX APTIM A HPV ASCU clinician provided ICD10: Becca loera Z01.4 19 Not Available [facility] ([facility]) [address] [place], [address], 01/02/2024 16:06:37 12/27/19 24 01/02/2024 IGP, RFX APTIM A HPV ASCU performed by: Becca Deluca , Cytot echno logis t (ASCP ) Not Available [facility] ([facility]) [address] [place], [address], 01/02/2024 16:06:37 12/27/19 24 01/02/2024 IGP, RFX APTIM A HPV ASCU QC reviewed by: Becca Duarte, Cytot echno logis t (ASCP ) Not Available [facility] ([facility]) [address] [place], [address], 01/02/2024 16:06:37 12/27/19 24 01/02/2024 IGP, RFX APTIM A HPV ASCU . . Not Available [facility] ([facility]) [address] [place], [address], 01/02/2024 16:06:37 12/27/19 24 01/02/2024 IGP, RFX [...] ts do occur . Not Available [facility] ([facility]) [address] [facility], [place], [address], 01/02/2024 16:06:37 12/27/19 24 01/02/2024 IGP, RFX APTIM A HPV ASCU test methodology: Commen t This liqui d based ThinP rep(R ) pap test was scree shefali with the use of an image guide d syste m. Not Available [facility] ([facility]) [address] [place], [address], 01/02/2024 16:06:37 12/27/19 24 01/02/2024 IGP, RFX APTIM A HPV ASCU . Commen t The HPV DNA refle x crite richie were not met with this speci men resul t there fore, no HPV testi ng was perfo rmed. Not Available [facility] ([facility]) [address] [place], [address], 01/02/2024 16:06:37 12/27/19 24 12/27/2023 hemog lobin , gastr ointe mikey l, stool Occult Blood negati ve Not Available In-Office Order Internal Use Only DO Not Attach Compendium DO Not Attach Compendium, Do Not Delete/merge, [id number] 12/27/2023 15:18:43 11/23/19 24 11/23/2023 MAMMO , scree fred, digit al, bilat eral No observ ation record ed. [facility] [address], [place], [address], 11/25/2023 18:57:11 Result Notes None recorded. Problems Name Problem SNOMED Code Status Onset Date Resolution Date Notes Provider Name and Address Organization Details Recorded Time Type 2 diabetes mellitus 79518933 Completed 201807/08/2020 HANDY Snow in [facility], 0 13:59:52 Hypertensiv e disorder 53093429 Completed 201807/08/2020 HANDY Snow in [facility], 0 13:59:50 Malignant tumor of thyroid gland 330877867 Active 2021 HANDY Molina in [facility], 2 14:50:44 Finding of odor of urine 91708987 Active 2021 Irma Johnson MD [address], [place], [address], [place] [facility], 2 15:16:30 Atrophic vaginitis 60207669 Active 2023 Irma Johnson MD [address], [place], [address], [place] [facility], 4 15:37:45 Problem Notes None recorded. Procedures Surgical History Date Name Laterality Status Provider Name and Address Organization Details Recorded Time 11/23/19 24 Most Recent Mammogram completed Jeana Matta in [facility], 12/27/2023 15:18:13 09/19/20 21 Thyroid Surgery completed Jeana Matta in [facility], 09/26/2021 11:50:13 09/18/20 19 laparoscopic sleeve gastrectomy completed Lorena Matta in [facility], 07/08/2020 14:04:19 07/01/20 15 procedure on knee completed Jeana Matta in [facility], 07/08/2019 14:56:23 11/16/19 15 Breast reduction completed Jeana Matta in [facility], 07/08/2019 14:57:28 06/24/20 13 cholecystectomy completed Jeana Matta in [facility], 07/08/2019 14:56:05 06/26/20 01 Shoulder joint surgery completed Jeana Matta in [facility], 07/08/2019 14:56:45 Imaging Results Imaging Date Name Status LastModified by Organiz ation Details LastModified Time 11/23/2023 MAMMO, screening, digital, bilateral completed [facility] [address], [place], [address], 11/25/2023 18:57:11 Procedure Notes None recorded. Medical [...] Address Organization Details Last Updated DateTime 0 [address]9825.3 2 g 26.9 kg/m2 160.02 cm 97.7 [degF] 78 /min 130 mm[Hg] 65 mm[Hg] Lorena Matta in [facility], 0 13:58:43 Date Recorded Body height Provider Name an d Address Organization Details Last Updated DateTime 09/26/2021 160.02 cm Jeana cantu in [facility], 09/26/2021 11:47:56 Date Recorded Body height Body mass index (BMI) Body weight Body temperature Heart rate Systolic blood pressure Diastolic blood pressure Provider Name and Address Organization Details Last Updated DateTime 2 160.02 cm 33 kg/m2 93970.9 g 97.2 [degF] 76 /min 136 mm[Hg] 69 mm[Hg] Jeana Matta in [facility], 2 14:47:25 Date Recorded Body weight Body mass index (BMI) Body height Body temperature Heart rate Systolic blood pressure Diastolic blood pressure Provider Name and Address Organization Details Last Updated DateTime 3 94658.6 4 g 34.4 kg/m2 160.02 cm 97.2 [degF] 78 /min 130 mm[Hg] 70 mm[Hg] Jeana Matta in [facility], 3 15:17:57 Date Recorded Body height Body mass index (BMI) Body weight Body temperature Heart rate Systolic blood pressure Diastolic blood pressure Provider Name and Address Organization Details Last Updated DateTime 4 160.02 cm 31.7 kg/m2 76071.0 3 g 97.2 [degF] 79 /min 140 mm[Hg] 69 mm[Hg] Jeana Matta in [facility], 4 15:14:31 Social History Question Answer Notes [...] Or The Highest Degree You Have Received? [id number] Information not available 11/08/2021 What Is Your [...] Anxious, Or Unable To Sleep At Night)? [id number] Information not available 12/26/2022 Do You Use [...] for MyRisk panel N Autoimmune Condition N Kidney or Bladder Problems N Thyroid Problems N Depression N Lung Disease N GI Problems N Defects or Inherited Disease N Anemia N History of Ovarian Cancer N History of Breast Cancer N SALENA [...] Jeana Meczywor null, [place] - [facility], 12/27/2023 15:15:20 Influenza, MDCK, quadrivalent, PF 2 completed Jeana Meczywor null, [place] [facility], 12/27/2023 15:15:20 Influenza, MDCK, quadrivalent, PF 0 completed Jeana Meczywor null, [place] [facility], 12/27/2023 15:15:20 Influenza, recombinant, quadrivalent, PF 9 completed Jeana Meczywor null, [place] [facility], 12/27/2023 15:15:20 zoster recombinant 2 completed Jeana Meczywor null, [place] [facility], 12/27/2023 15:15:20 zoster recombinant 2 completed Jeana Meczywor null, [place] [facility], 12/27/2023 15:15:20 COVID-19, mRNA, LNP-S, PF, 30 mcg/0.3 mL dose 1 completed Jeana Meczywor null, [place] [facility], 12/27/2023 15:15:20 COVID-19, mRNA, LNP-S, PF, 30 [...] SNOMED-CT Code Diagnosis ICD10 Code Diagnosis Note [id number] MD IRMA Nelson MD [address] [place] [address],[place] [address] 07/08/2019 14:38:18 07/08/2019 15:45:57 Specialized medical examination 82394260 Z01.419 Screening for malignant neoplasm of rectum 826758954 Z12.12 Screening mammography 24 222513 Z12.31 [id number] MD IRMA Nelson MD [address] [place] [address],[place] [address] 07/08/2020 13:41:40 07/08/2020 14:44:14 Specialized medical examination 78998356 Z01.419 Screening for malignant neoplasm of rectum 216111333 Z12.12 Screening mammography 24 915500 Z12.31 [id number] MD IRMA Nelson MD [address] [place] [address],[place] [address] 09/26/2021 11:47:03 09/26/2021 13:31:00 Vulvitis 97771710 N76.2 B96.89 [id number] MD IRMA Nelson MD [address] [place] [address],[place] [address] 11/08/2021 14:43:14 11/08/2021 15:37:21 Specialized medical examination 40407915 Z01.419 Screening for malignant neoplasm of rectum 309407541 Z12.12 Screening mammography 24 586155 Z12.31 [id number] MD IRMA Nelson MD [address] [place] [address],[place] [address] 12/26/2022 15:08:10 12/26/2022 15:57:23 Specialized medical examination 10823584 Z01.419 Screening for malignant neoplasm of rectum 151254776 Z12.12 Screening mammography 24 776297 Z12.31 [id number] MD IRMA Nelson MD [address] [place] [address],[place] [address] 12/27/2023 15:04:27 12/27/2023 16:04:15 Specialized medical examination 42096318 Z01.419 Screening for malignant neoplasm of rectum 023573180 Z12.12 Screening mammography 24 682545 Z12.31 Atrophic vaginitis 61603 000 N95.2 Health Concerns Section Related Observation LastModified by Organization Detai ls LastModified Time None Recorded Concern Status LastModified by Organization Details LastModified Time None Recorded Advance Directives Directive N: Payers Encounter Date Sequence Insurance Name Policy Number Policy Monique Covered Member ID Monique Member ID Guarantor Name 07/08/2020 1 [employer] (PP[employer]) [id number] 2 Yair Pierce [id number] Yair Pierce 09/26/2021 1 [employer]) [id number] 2 Yair Unruly Stan [id number] Yair Pierce 11/08/2021 1 [employer] ([employer]) [id number] 2 Yair Pierce [id number] Yair Pierce 12/26/2022 1 [employer] ([employer]) [id number] 2 Yair Tolliver Pierce [id number] Yair Pierce 12/27/2023 1 [employer] (PPO) [id number] 2 Yair Tolliver Stan [id number] Yair Pierce Notes Date Note Type Note [...] she loses weight. Irma Johnson MD [address] [facility] [address], [place], [address], [facility] - [facility], 07/08/2020 14:30:45 09/26/2021 text/html This visit is a phone telehealth visit. The patient consented to the visit by phone.The patient was at home at the time of the call and the provider and patient were the only people on the line.I was at [address] [facility], [address], [place], at the time of the call. I [...] off all medication! Irma Johnson MD [address], [place], [address], [facility] - [facility] in [facility], 09/26/2021 12:11:13 11/08/2021 text/html She is [...] off all medication! Irma Johnson MD [address] [facility], [place], [address], [place] - [facility], 11/08/2021 15:16:57 12/26/2022 text/html She is [...] Menopause age 55. Irma Johnson MD [address] [facility], [place], [address], [place] - [facility], 12/26/2022 15:36:57 12/27/2023 text/html She is here for annual, doing well, her incisional hernia surgery went well. note from 2022: She is her for annual, doing well, will be having hernia surgery soon for an incisional hernia in her upper abdomen. Irma Johnson MD [address] [facility], [place], [address], [place] - [facility], 12/27/2023 15:38:15 OBGyn Episode No OBEpisode recorded.
--- OUTSIDE RECORDS SUMMARY | 2024-11-20 10:47 | XMS_ITS | Patient Health Record ---
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 Operator Name Role Phone PILIHOLLY Primary Care Provider Concepcion Cassidy Unavailable [phone] Reason For Referral No Information Medications Medication [...] Status Risk Notes Problem Morbid obesity (disorder) (440114623) Morbid (severe) obesity due to excess calories [...] Insured Coverage Start Date Coverage End Date [facility] [address] [place], [place] [id number] PR[address] MARTELLALEJANDRO BRAUN Self - patient is the insured Medical (General) History Medical History History ICD Code Back and Shoulder Pains Unspecified lump in breast N63 Changes in skin texture R23.4 Surgical History Surgery Date(Month/Year) Cholecystectomy Left Shoulder Surgery Colonoscopy BREAST REDUCTION 02/2015 Rt Knee Surgery 10/2016 Hospitalization History Reason Date(Month/Year) See Surgical Hx
[2024-11-20 11:05] LABS: Alanine Aminotransferase 38 U/L (0-31); Albumin Level 4.2 g/dL (3.5-5.0); Alkaline Phosphatase 87 U/L (39-117); Anion Gap 11 (12-20); Aspartate Amino Transferase 36 U/L (5-31); Bilirubin Total 0.9 mg/dL (0.0-1.0); Blood Urea Nitrogen 14 mg/dL (9-16); Calcium 9.3 mg/dL (8.4-10.2); Carbon Dioxide 26 mmol/L (22-29); Chloride 111 mmol/L (96-108); Cholesterol 160 mg/dL (<200); Estimated Glomerular Filt Rate > 60; Glucose Random 100 mg/dL (60-115); HDL Cholesterol 55 mg/dL (>40); Iron 134 mcg/dL (30-160); LDL Cholesterol Calculated 80 mg/dL (<100); Percent Iron Saturation 44 % (15-50); Potassium 4.3 mmol/L (3.3-5.1); Sodium 144 mmol/L (135-145); Total Iron Binding Capacity 303 mcg/dL (228-428); Total Protein 7.4 g/dL (6.5-8.0); Triglycerides 128 mg/dL (<150); Unsaturated Iron Binding 169 ug/dL
[2024-11-20 11:20] LABS: Ferritin 130 ng/mL (10-250); TSH reflex Free T4 0.04 uIU/mL (0.32-4.0); Vitamin D 25-OH Total 107.1 ng/mL (>30)
[2024-11-20 11:29] LABS: Folate 14.6 ng/mL (> or = 4.0); Vitamin B12 558 pg/mL (200-900)
[2024-11-20 11:42] LABS: Insulin 18 uU/mL (2-29)
[2024-11-20 12:00] LABS: Free T4 (Free Thyroxine) 1.25 ng/dL (0.71-1.85)
[2024-11-24 03:19] LABS: Zinc 78 mcg/dL (60-130)
[2024-11-25 14:28] LABS: Vitamin A 59 mcg/dL (38-98)
[2024-11-29 07:44] LABS: Vitamin B1 12 nmol/L (8-30)
== END 2024-11-20 09:35 | disposition home or self-care (01) ==
LOC: HO.LAB 09:34
PROVIDERS: PCP Family Medicine; Visit Provider Physician Assistant Surgical
DX: Z90.3 Acquired absence of stomach [part of] (principal); E78.9 Disorder of lipoprotein metabolism, unspecified; G47.33 Obstructive sleep apnea (adult) (pediatric); Z13.1 Encounter for screening for diabetes mellitus
CPT/HCPCS: 36415; 80053; 80061; 82306; 82607; 82728; 82746; 83036; 83525; 83540; 84425; 84439; 84443; 84590; 84630; 85025; 86140

== ENCOUNTER 2024-12-22 14:47 | Outpatient (AMB) | payer OTHER, SELFPAY ==
--- NOTE | 2024-12-22 14:50 | MHC.OFFVISWM ---
VS Expanded 12/22/24 14:59 BP 125/67 Blood Pressure Location Rt brachial Blood Pressure Position Sitting Pulse 76 Pulse Source Pulse Oximeter Temp 98 F Temperature Source Temporal Artery Scan Pulse Oximetry 96 Oxygen Delivery Method Room Air Height 5 ft 2.5 in Weight 179 lb BMI 32.2 Body Fat % 39.5 Body Fat Mass 71. Fat Free Mass 108.6 Visceral Fat Rating 11. Body Water % 42.7 Body Water Mass 76.8 Muscle Mass/Score 103.2 Basal Metabolic Rate/Score 1,487 Intake Visit Reasons: (OV) PO LSG 09/18/19 Allergies No Known Allergies [No Known Allergies*] Allergy (Verified 11/27/24 09:28) HPI Comments Details: Patient is a pleasant 64-year-old female who returns to the office today in follow-up. She is approximately 5 years 3 months post sleeve gastrectomy performed on 09/08/2019. She was last seen in the office 02/15/2025 with a weight of 187.2 lb with a BMI of 33.7. Weight today is 179.8 lb with a BMI of 32.4. She has lost 7.4 lb in the last month. Taking [employer] multivit for 50 and over, also taking oregano, marenga, Vit D. She states that she was out visiting her best friend's son at a cattle ranch in [place] for a little over 2 weeks. While out there she was active helping to feed the animals but did not follow the meal plan exactly and was unable to exercise specifically. She additionally developed a rash underneath her abdominal pannus which she self-treated with [id number] remedies. Wants to have food in the morning. Meal plan: Premier protein ready to drink per her choice 8-10 am premier protein ready to drink shake 12-2 pm half premier protein ready to drink mixed with 6 oz of unsweetened almond milk 6 pm meal with 7 forks protein and 7 forks salad or vegetables Exercise plan: PF [facility] Medical History DMII (diabetes mellitus, type 2) Surgical History Hx of hernia repair Hx laparoscopic cholecystectomy History of shoulder surgery Hx of meniscectomy of right knee Hx of thyroidectomy S/P laparoscopic sleeve gastrectomy Family History Sister Thyroid ca Social History Are you a primary interior plant caretaker to a significant other at home: No Do you presently have visiting nurse or other home services: No Alcohol intake: never Patient Tobacco Use Status: Never used Tobacco Physical Exam Vital Signs: Last Vital Signs Temp 98 F 12/22/24 14:59 Pulse 76 12/22/24 14:59 BP 125/67 12/22/24 14:59 Pulse Ox 96 12/22/24 14:59 Oxygen Delivery Method Room Air 12/22/24 14:59 BMI result Body Mass Index 32.2 Const General: healthy appearing and no acute distress Resp Effort & Inspection: normal respiratory effort Auscultation: clear to auscultation bilaterally Cardio Rate: regular rate Rhythm: regular rhythm GI Auscultation: normal bowel sounds Extrem General: Yes normal to inspection Assessment & Plan Assessment & Plan (1) Status post sleeve gastrectomy: Code(s): Z90.3 - Acquired absence of stomach [part of] Category: Surgical Plan: Patient wants to change her plan to include eating in the morning. Two eggs Premier protein ready to drink shake Meal with 7 forks of protein and 7 forks of vegetables Encouraged to exercise daily. Goal is 400 calories per day. Encouraged to text weekly her weight is and with any questions or concerns. Return to clinic 1 month.
[2024-12-22 14:59] VITALS: BP 125/67; PULSE 76; TEMP 36.6; O2SAT 96; BMI 32.2
--- OUTSIDE RECORDS SUMMARY | 2024-12-22 16:42 | XMS_ITS | Data Portability ---
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 Encouraged to loose weight.- Avoid starchy and fatty food- Encouraged use of green vegetables and fruits- Following weight center Lesion of ligament of wrist and/or hand 223982328 M24.242 Xerosis du e to atopic dermatitis 649798444 L85.3 emolnt use advised, avoid hot showers Essential hypertension 13422472 I10 BP in JNC 8 range has [...] return in 2 mo to check bp [id number] Kathleen Vieyraevaristo Main Office [address] [address] [place] [address] 10/20/2022 15:17:12 10/20/2022 16:58:26 Carcinoma of thyroid 664054660 C73 Pt had this treated with thyroidect mee Secondary hypothyroidism 36293509 E03.8 check labs Headache 16364804 R51.9 New onset left post head pain, rule out mass [id number] Michaela Russo Main Office [address] [address] [place] [address] 12/06/2022 09:39:57 12/06/2022 10:48:14 Hernia of anterior abdominal wall 707112664 K43.9 Pt to see surgeon for evaluation , she would like this repaired. Headache 06951065 R51.9 ? neuralgia, CT without acute findings or mass, to see neuro for evaluation , referral is in , call or ED if any acute symptoms [id number] Sai Cobian MD Main Office [address] [address] [place] [address] 04/10/2023 11:38:46 04/10/2023 13:13:05 Type 2 diabetes mellitus without complication 487793729 E11.9 Stable off meds after bariatric. Will repeat a1c at , if bio life requires more updated we can put labs sooner. Hyperlipidemia 93459375 E78.5 stable off meds. Administra tive reason for encounter 585897941 Z02.9 Bio life form completed time spent 10min to complete form. [id number] Sai Cobian MD Main Office [address] [address] [place] [address] 10/23/2023 10:43:02 10/23/2023 11:59:30 Adult health examination 266023176 Z00.00 Patient was counseled on healthy diet, exercise and nutrition due to Body mass index is 29.7 kg/m? ? ?. Last Colonoscop y:Date: 11/27/11Resu lt: wnlPlan: repeat 10 yrs per GI, order placed Last Mammogram: Date: 11/16/22Res ult: Birad-1Pla n: Referral placed by general neurologist. Last Pap smearDate: 11/23/21Resu lt: neg for [...] Distracted driving discussed. Medication reconciled . Fatigue 46214364 R53.83 Hyperlipidemia 93861763 E78.5 stable off meds. Type 2 ayaka betes mellitus without complication 136862796 E11.9 Stable off meds after bariatricH BA1C orderedOph thalmology exam up to dateEndocr inologyLip id profile done/ labs orderedCou nselled about regular physical activityCo unselled on dietFeet examined todayPPSV 23 up to date. Essential hypertension 88947510 I10 Carcinoma of thyroid 448 768218 C73 follow endo Body mass index 30+ - obesity 385322728 E66.9 Z68.31 - Diet and exercise discussed- Patient made aware of risks of obesity- Encouraged to loose weight.- Avoid starchy and fatty food- Encouraged use of green vegetables and fruits- Following weight center Screening for malignant neoplasm of colon 625347030 Z12.11 Administra tion of pneumococcal vaccine 32702447 Z23 Administra tion of viral vaccine 84188185 Z29.11 Pain in right hand 09526 08627 82820 M79.641 Will get xr, inflam marker, she is establishe d with hand center advised to follow up.Cont. tylenol. Can consider OT if sx persists.L imit NSAID due to hx of bariatrics . [id number] Sai Cobian MD Main Office [address] [facility] [place], [place] [address] 01/22/2024 10:45:56 01/22/2024 11:35:10 Type 2 diabetes mellitus without complication 194749790 E11.9 Stable off meds after bariatricH BA1C done, well controlled of meds.Hold asa due to gastric sleeve.Oph thalmology exam up to dateFollow s Endocrinol ogyLipid profile done will start stain.Coun selled about regular physical activityCo unselled on dietFeet examined [id number] , up to date. Hyperlipidemia 45339557 E78.5 Will start meds given DM, side [...] Monique Member ID Guarantor Name 10/20/2022 1 [facility] ([facility] [id number] 2 Elvira Pierce [id number] Elvira Pierce 12/06/2022 1 [facility] ([facility] [id number] 2 Elvira Pierce [id number] Elvira Pierce 04/10/2023 1 [facility] ([facility] [id number] 2 Elvira Pierce [id number] Elvira Pierce 10/23/2023 1 [facility] ([facility] [id number] 2 Elvira Pierce [id number] Elvira Pierce 01/22/2024 1 [facility] ([facility]) [id number] 2 Elvira Pierce [id number] Elvira Pierce Notes Date Note Type Note [...] and is concerned about remote recurrence. Michaela Dacostamarv devine [facility] 10/27/2022 07:42:33 12/06/2022 text/html Pt had a [...] not like to take it. Michaela Dacostamarv devine [facility] 12/07/2022 00:16:51 04/10/2023 text/html Visit to discuss forms that she needs for bio life plasma donation. She is otherwise doing well. No acute complaints. She tell me lab work for 01/11/22 should be adequate. Sai Cobian MD [address], [address], [facility] 04/10/2023 13:03:07 10/23/2023 text/html Here for PE. Rev iewed chronic medications and existing medical conditions. Discussed age-appropriate screening guidelines as well as goals for fitness and weight management. 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 Sai Cobian MD [address] [address], [place], [address], [facility] 10/23/2023 12:02:26 01/22/2024 text/html Diabetes F/URepo rted bypatient.Context:see ing eye doctor regularly; checking feet regularly;not taking aspirin daily Associated Symptoms:no weight gain; no weight loss; no dizziness; no sweats; no headaches; no confusion; no increased thirst; no increased appetite; no increased urination; no blurred vision; no numbness of feet; no calluses on feet Follow up for DM Sai Cobian MD [address] [address], [place], [address], [facility] 01/22/2024 12:15:07 OBGyn Episode No OBEpisode recorded.
--- OUTSIDE RECORDS SUMMARY | 2024-12-22 16:43 | XMS_ITS | Data Portability ---
Author Organization [place] - [facility],, IRMA JOHNSON MD Address [address] [address] Care Team Providers Care Editor Farm Journal Name Role Phone SAI COBIAN Primary Care Provider [phone] Assessment No assessment recorded. Plan of Treatment Reminders Order Date Submit Date Provider Last Modified By Organization Details Last Modified Time Details Appointments ANNUAL EXAM 2024 11:00A M Irma Johnson MD Not available Not available Not available Lab cytology report, thin prep, smear or scraping , cervical or vaginal 2023 024 MOOSE [facility] (Centralized Electronic Ordering - All Locations), Patient Can Go To The Location Of Their Choice, [id number] 01/02/2024 16:06:37 hemoglob in, gastroin testinal , stool 2023 024 [email or web address] 1 In-Office Order, Internal Use Only DO Not Attach Compendium DO Not Attach Compendium, Do Not Delete/merge, [id number] 12/27/2023 15:36:16 pap test, thinprep , cervical 2022 023 [facility] (Centralized Electronic Ordering - All Locations), Patient Can Go To The Location Of Their Choice, [id number] 01/09/2023 07:25:58 fecal occult blood, stool 2022 023 [email or web address] 1 In-Office Order, Internal Use Only DO Not Attach Compendium DO Not Attach Compendium, Do Not Delete/merge, [id number] 12/26/2022 15:36:24 pap test, thinprep , cervical 2021 022 [facility], Cytopathology Service, [address] [place], [address], 11/29/2021 07:23:48 fecal occult blood, stool 2021 022 [email or web address] 1 In-Office Order, Internal Use Only DO Not Attach Compendium DO Not Attach Compendium, Do Not Delete/merge, [id number] 11/08/2021 15:14:24 pap test, thinprep , cervical 2019 020 [facility], [address] [place], [address], 07/15/2020 07:48:28 fecal occult blood, stool 2019 020 [email or web address] In-Office Order, Internal Use Only DO Not Attach Compendium DO Not Attach Compendium, Do Not Delete/merge, [id number] 07/15/2020 07:48:28 Referral None recorded . Procedures None recorded . Surgeries None recorded . Imaging MAMMO, screenin g, digital, bilatera l - Breast Aspirati on and/or Biopsy if needed 2023 024 [facility] Orders, [address], [place], [address], 11/25/2024 16:08:03 MAMMO, screenin g, digital, bilatera l - Breast Aspirati on and/or Biopsy if needed 2022 023 [facility] Orders, [address], [address], [place], [address], 11/23/2023 17:23:39 MAMMO, screenin g, digital, bilatera l 2021 022 [facility] Orders, [address], [address], [place], [address], 10/29/2023 07:34:43 MAMMO, screenin g, digital, bilatera l 2019 020 ketan [facility] (Mammography), [address] [facility], [place], [address], 07/04/2021 07:18:37 Medication Orders metronid azole 0.75 % (37.5 mg/5 gram) vaginal gel 2021 022 DBA_PATCH_ [id number] [facility]/Pharmacy #[id number], [address] [place] [address], [address], 11/09/2021 10:03:35 Patient TargetsNo targets recorded. Patient Instructions Encounter Date Encounter Id Patient Instructions Last Modified By Organization Details Last Modified Time 07/08/2020 [id number] learning about healthy weight Not available 07/08/2020 14:18:39 She is here for annual exam, has lost 76 pounds this past year after bariatric surgery. She feels well, I'm off all medication! _ note from 2019: She is here for annual exam as a new patient, is going to go for weight los surgery son, the felipe, and needs to get caught up with [...] the breast. Not available 07/08/2020 14:18:53 09/26/2021 [id number] bacterial vaginosis: care instructions Not available 09/26/2021 11:57:50 This visit is a phone telehealth visit. The patient consented to the visit by phone. The patient was at home at the time of the call and the provider and patient were the only people on the line. I was at [address], [address], [place], [place], at the time of the call. [...] evaluation. Face to face discussion 20 minutes [email or web address] Not available 09/26/2021 12:10:58 11/08/2021 [id number] learning about healthy weight Not available 11/08/2021 [...] the breast. Not available 11/08/2021 15:16:21 12/26/2022 [id number] learning about healthy weight Not available 12/26/2022 [...] discovers any new mass in the breast. [email or web address] Not available 12/26/2022 15:36:39 12/27/2023 [id number] atrophic vaginit is: care instructions [email or web address] Not available 12/27/2023 15:37:51 learning about healthy [...] vaginal estradiol and she agrees to call. [email or web address] Not available 12/27/2023 15:37:35 Reason for Referral None Reported. Results Created Date Observation Date Name Description Value Unit Range Abnormal Flag Note LastModifiedBy Organization Detail LastModifiedTime 07/08/20 20 07/08/2020 fecal occul t blood , stool Occult Blood negati ve Not Available In-Office Order Internal Use Only DO Not Attach Compendium DO Not Attach Compendium, Do Not Delete/merge, [id number] 07/08/2020 13:52:44 07/08/2007/08/2020 pap, LB [id number] ThinP rep Pap, Image d: NEGAT ANKITA [...] neg, z12.4 , z01.4 19 Not Available [facility], Cytopathology Service [address] [place], [address], 07/12/2020 15:15:51 11/08/19 22 11/08/2021 PAP1C ASE [email or web address] ThinP rep Pap, Image d: NEGAT ANKITA [...] rmed by the ThinP rep Imagi ng Yoanna martinez [facility] nataly flores CT( CP) (Case elect mayela rodriguez moisés d 11 23 2021) ADEQU ACY: Satis facto ry . SOURC E: ThinP rep Pap HPV IF ASCUS , Cervi del, Image d CLINI DEL INFOR MATIO N: HPV If Diagn osis of ASCUS . 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 Perfo rmed at [facility] ate Refer ence Labor atory depar tment of Cytol ogy, [address] [place] Clini del Histo ry (othe r): Z01.4 19 LPS 12/13 negat ankita Phone #: [phone], On-Ca ll Patho logis t: 73029 Not Available [facility] (Centralized Electronic Ordering - All Locations) Patient Can Go To The Location Of Their Choice, [id number] 01/04/2023 16:53:41 12/27/19 23 12/26/2022 fecal occul t blood , stool Occult Blood negati ve Not Available In-Office Order Internal Use Only DO Not Attach Compendium DO Not Attach Compendium, Do Not Delete/merge, [id number] 12/26/2022 15:21:14 12/27/19 24 01/02/2024 IGP, RFX APTIM A HPV ASCU diagnosis: Becca t UNSAT ISFAC TORY FOR EVALU ATION . THIS SPECI MEN WAS RESCR EENED PART OF OUR QUALI TY CONTR OL PROGR AM. Not Available [facility] ([facility]) [address] [place], [address], 01/02/2024 16:06:37 12/27/19 24 01/02/2024 IGP, RFX APTIM A HPV ASCU specimen adequacy: Becca t Speci men proce ssed and exami shefali, but unsat isfac tory for evalu ation of epith elial abnor malit y becau se of obscu ring exuda te. Not Available [facility] ([facility]) [address] [place], [address], 01/02/2024 16:06:37 12/27/19 24 01/02/2024 IGP, RFX APTIM A HPV ASCU clinician provided ICD10: Becca loera Z01.4 19 Not Available [facility] ([facility]) [address] [place], [address], 01/02/2024 16:06:37 12/27/19 24 01/02/2024 IGP, RFX APTIM A HPV ASCU performed by: Becca Deluca , Cytot echno logis t (ASCP ) Not Available [facility] ([facility]) [address] [place], [address], 01/02/2024 16:06:37 12/27/19 24 01/02/2024 IGP, RFX APTIM A HPV ASCU QC reviewed by: Becca Duarte, Cytot echno logis t (ASCP ) Not Available [facility] ([facility]) [address] [place], [address], 01/02/2024 16:06:37 12/27/19 24 01/02/2024 IGP, RFX APTIM A HPV ASCU . . Not Available [facility] ([facility]) [address] [place], [address], 01/02/2024 16:06:37 12/27/19 24 01/02/2024 IGP, RFX APTIM A HPV ASCU note: Commen t The Pap smear is a scree fred test desjulia meehan to aid in the detec tion of [...] [facility] ([facility]) [address] [facility], [place], [address], 01/02/2024 16:06:37 12/27/19 24 01/02/2024 IGP, RFX APTIM A HPV ASCU test methodology: Commen t This liqui d based ThinP rep(R ) pap test was scree shefali with the use of an image guide daja lopez. Not Available [facility] ([facility]) [address] [place], [address], 01/02/2024 16:06:37 12/27/19 24 01/02/2024 IGP, RFX APTIM A HPV ASCU . Commen t The HPV DNA refle x crite richie were not met with this speci men resul t there fore, no HPV testi ng was perfo rmed. Not Available [facility] ([facility]) [address] [place], [address], 01/02/2024 16:06:37 12/27/19 24 12/27/2023 hemog lobin , gastr ointe mikey l, stool Occult Blood negati ve Not Available In-Office Order Internal Use Only DO Not Attach Compendium DO Not Attach Compendium, Do Not Delete/merge, [id number] 12/27/2023 15:18:43 11/23/19 24 11/23/2023 MAMMO , scree fred, digit al, bilat eral No observ ation record ed. [facility] [place] [address] [place], [address], 11/25/2023 18:57:11 11/26/19 25 11/25/2024 MAMMO , chrise fred, digit al, bilat eral No observ ation record ed. [facility] [place] [address] [place], [address], 11/26/2024 07:11:19 Result Notes None recorded. Problems Name Problem SNOMED Code Status Onset Date Resolution Date Notes Provider Name and Address Organization Details Recorded Time Type 2 diabetes mellitus 86393541 Completed 201807/08/2020 HANDY Snow [facility], 0 13:59:52 Hypertensiv e disorder 04901857 Completed 201807/08/2020 HANDY Snow in [facility], 0 13:59:50 Malignant tumor of thyroid gland 772210919 Active 2021 Jeana HANDY Bear in [facility], 2 14:50:44 Finding of odor of urine 90594070 Active 2021 Irma Johnson MD [address], [place], [address], [place] - [facility], 2 15:16:30 Atrophic vaginitis 61991088 Active 2023 Irma Johnson MD [address], [place], [address], [place] [facility], 4 15:37:45 Problem Notes None recorded. Procedures Surgical History Date Name Laterality Status Provider Name and Address Organization Details Recorded Time 11/23/19 24 Most Recent Mammogram completed Jeana Mccord [place] - [facility], 12/27/2023 15:18:13 09/19/20 21 Thyroid Surgery completed Jeana Mccord [place] - [facility], 09/26/2021 11:50:13 09/18/20 19 laparoscopic sleeve gastrectomy completed Lorena Church [place] - [facility], 07/08/2020 14:04:19 07/01/20 15 procedure on knee completed Jeana Mccord [place] - [facility], 07/08/2019 14:56:23 11/16/19 15 Breast reduction completed Jeana Mccord [place] - [facility], 07/08/2019 14:57:28 06/24/20 13 cholecystectomy completed Jeana Mccord [place] - [facility], 07/08/2019 14:56:05 06/26/20 01 Shoulder joint surgery completed Jeana Mccord [place] - [facility], 07/08/2019 14:56:45 Imaging Results Imaging Date Name Status LastModified by Organiz ation Details LastModified Time 11/23/2023 MAMMO, screening, digital, bilateral completed [address] [facility] [address] [place], [address], 11/25/2023 18:57:11 11/25/2024 MAMMO, screening, digital, bilateral completed [address] [facility] [address] [place], [address], 11/26/2024 07:11:19 Procedure Notes None recorded. Medical Equipment None [...] MOUTH TWICE A DAY FOR 7 DAYS 04/04 /2023 completed Not Available Not Available Not Available [...] Address Organization Details Last Updated DateTime 0 [address]3829.3 2 g 26.9 kg/m2 160.02 cm 97.7 [degF] 78 /min 130 mm[Hg] 65 mm[Hg] Lorena Church [place] - [facility], 0 13:58:43 Date Recorded Body height Provider Name an d Address Organization Details Last Updated DateTime 09/26/2021 160.02 cm Jeana Anne in [facility], 09/26/2021 11:47:56 Date Recorded Body height Body mass index (BMI) Body weight Body temperature Heart rate Systolic blood pressure Diastolic blood pressure Provider Name and Address Organization Details Last Updated DateTime 2 160.02 cm 33 kg/m2 16410.9 g 97.2 [degF] 76 /min 136 mm[Hg] 69 mm[Hg] Jeana Viramontes [facility], 2 14:47:25 Date Recorded Body weight Body mass index (BMI) Body height Body temperature Heart rate Systolic blood pressure Diastolic blood pressure Provider Name and Address Organization Details Last Updated DateTime 3 11377.6 4 g 34.4 kg/m2 160.02 cm 97.2 [degF] 78 /min 130 mm[Hg] 70 mm[Hg] Jeana Mccord [place] - Sigrid in [facility], 3 15:17:57 Date Recorded Body height Body mass index (BMI) Body weight Body temperature Heart rate Systolic blood pressure Diastolic blood pressure Provider Name and Address Organization Details Last Updated DateTime 4 160.02 cm 31.7 kg/m2 06469.0 3 g 97.2 [degF] 79 /min 140 mm[Hg] 69 mm[Hg] Jeana Matta in [facility], 4 15:14:31 Social History Question Answer Notes LastModified by Organizat ion Details LastModified Time Tobacco Smoking Status Never Smoker HANDY Molina in [facility], 07/08/2019 14:53:36 Do You Have An Advance [...] Or The Highest Degree You Have Received? LI51398-8 Information not available 11/08/2021 What Is Your [...] Anxious, Or Unable To Sleep At Night)? [id number] Information not available 12/26/2022 Do You Use [...] virus, quadrivalent, preservative 8 completed Jeana Meczywor null [place] [facility], 12/27/2023 15:15:20 Influenza, MDCK, quadrivalent, PF 2 completed Jeana Meczywor null [place] [facility], 12/27/2023 15:15:20 Influenza, MDCK, quadrivalent, PF 0 completed Jeana Meczywor null [place] - [facility], 12/27/2023 15:15:20 Influenza, recombinant, quadrivalent, PF 9 completed Jeana Meczywor null [place] [facility], 12/27/2023 15:15:20 zoster recombinant 2 completed Jeana Meczywor null, [place] [facility], 12/27/2023 15:15:20 zoster recombinant 2 completed Jeana Meczywor null, [place] [facility], 12/27/2023 15:15:20 COVID-19, mRNA, LNP-S, PF, 30 mcg/0.3 mL dose 1 completed Jeana Meczywor null, [place] [facility], 12/27/2023 15:15:20 COVID-19, mRNA, LNP-S, PF, 30 mcg/0.3 mL dose 1 completed Jeana Meczywor null, [place] [facility], 12/27/2023 15:15:20 COVID-19, mRNA, LNP-S, PF, 30 mcg/0.3 mL dose 1 completed Jeana Meczywor null, [place] [facility], 12/27/2023 15:15:20 COVID-19, mRNA, LNP-S, bivalent, PF, 50 mcg/0.5 mL or 25mcg/0.25 mL dose 2 completed Jeana Meczywor null, [place] [facility], 12/27/2023 15:15:20 pneumococcal polysaccharide PPV23 8 [...] Jeana Meczywor null, [place] [facility], 12/27/2023 15:15:20 pneumococcal, unspecified formulation 6 completed Jeana Meczywor null, [place] [facility], 12/27/2023 15:15:20 Influenza, split virus, quadrivalent, PF 1 completed Jeana Meczywor null, [place] [facility], 12/27/2023 15:15:20 Influenza, split virus, quadrivalent, PF 7 completed Jeana Meczywor null, [place] [facility], 12/27/2023 15:15:20 Past Encounters Encounter ID Performer Location Encounter Start Date Encounter Closed Date Diagnosis/Indication Diagnosis SNOMED-CT Code Diagnosis ICD10 Code Diagnosis Note [id number] MD IRMA Nelson MD [address] [place] [address], [address] [place] [address] 07/08/2019 14:38:18 07/08/2019 15:45:57 Specialized medical examination 15833040 Z01.419 Screening for malignant neoplasm of rectum 935125304 Z12.12 Screening mammography 24 404693 Z12.31 [id number] MD IRMA Nelson MD [address] [place] [address],[address] [place] [address] 07/08/2020 13:41:40 07/08/2020 14:44:14 Specialized medical examination 49320935 Z01.419 Screening for malignant neoplasm of rectum 539675342 Z12.12 Screening mammography 24 501737 Z12.31 [id number] MD IRMA Nelson MD [address] [facility] [place] [address] 09/26/2021 11:47:03 09/26/2021 13:31:00 Vulvitis 76115872 N76.2 B96.89 [id number] MD IRMA Nelson MD [address] [place] [address], [address] [place] [address] 11/08/2021 14:43:14 11/08/2021 15:37:21 Specialized medical examination 33849818 Z01.419 Screening for malignant neoplasm of rectum 448596711 Z12.12 Screening mammography 24 376516 Z12.31 [id number] MD IRMA Nelson MD [address] [facility] [place] [address] 12/26/2022 15:08:10 12/26/2022 15:57:23 Specialized medical examination 83694868 Z01.419 Screening for malignant neoplasm of rectum 117311618 Z12.12 Screening mammography 24 925897 Z12.31 [id number] MD IRMA Nelson MD [address] [facility] [place] [address] 12/27/2023 15:04:27 12/27/2023 16:04:15 Specialized medical examination 48492869 Z01.419 Screening for malignant neoplasm of rectum 448172713 Z12.12 Screening mammography 24 269480 Z12.31 Atrophic vaginitis 48786 000 N95.2 Health Concerns Section Related Observation LastModified by Organization Detai ls LastModified Time None Recorded Concern Status LastModified by Organization Details LastModified Time None Recorded Advance Directives Directive N: Payers Encounter Date Sequence Insurance Name Policy Number Policy Monique Covered Member ID Monique Member ID Guarantor Name 07/08/2020 1 [facility] (PPO) [id number] 2 Yair Pierce [id number] Yair Pierce 09/26/2021 1 [facility] (PPO[facility] [id number] 2 Yair Pierce [id number] Yair Pierce 11/08/2021 1 [facility]PP[facility] [id number] Yair Pierce [id number] Yair Pierce 12/26/2022 1 [facility] (PPO) [id number] 2 Yair Pierce [id number] Yair Pierce 12/27/2023 1 [facility] (PPO) [id number] 2 Yair Pierce [id number] Yair Pierce Notes Date Note Type Note [...] after she loses weight. Irma Johnson MD [address] [place] [address],[facility] [address], [place], [address], [place] [facility], 07/08/2020 14:30:45 09/26/2021 text/html This visit is a phone telehealth visit. The patient consented to the visit by phone.The patient was at home at the time of the call and the provider and patient were the only people on the line.I was at [address] [place] [address], [address], [place], [place], at the time of the call. [...] off all medication! Irma Johnson MD [address] [facility],[address], [place], [address], [place] - [facility], 09/26/2021 12:11:13 11/08/2021 text/html She is [...] off all medication! Irma Johnson MD [address], [place], [address], [place] [facility], 11/08/2021 15:16:57 12/26/2022 text/html She is here [...] Menopause age 55. Irma Johnson MD [address] [facility],[address], [place], [address], [place] [facility], 12/26/2022 15:36:57 12/27/2023 text/html She is here for annual, doing well, her incisional hernia surgery went well. note from 2022: She is her for annual, doing well, will be having hernia surgery soon for an incisional hernia in her upper abdomen. Irma Johnson MD [address] [facility],[address], [place], [address], [place] [facility], 12/27/2023 15:38:15 OBGyn Episode No OBEpisode recorded.
== END 2024-12-22 15:18 | disposition home or self-care (01) ==
LOC: HO.HBS 14:48
PROVIDERS: PCP Family Medicine; Visit Provider Physician Assistant Surgical
DX: E66.811 Obesity, class 1 (principal); Z68.32 Body mass index [BMI] 32.0-32.9, adult; Z90.3 Acquired absence of stomach [part of]; Z98.84 Bariatric surgery status
CPT/HCPCS: 99213

== ENCOUNTER → 2024-12-22 14:47 | Outpatient (BNVA) | payer OTHER, SELFPAY | PROVIDERS: PCP Family Medicine; Visit Provider Physician Assistant Surgical | DX: Z90.3 Acquired absence of stomach [part of] (principal); E78.9 Disorder of lipoprotein metabolism, unspecified; G47.33 Obstructive sleep apnea (adult) (pediatric) ==